=== PATIENT | male | born 1935 | race Two or more races ===

== ENCOUNTER → 2017-02-02 | Outpatient (CLI) | payer MEDICARE ==
[~2017-02-02] MED LIST: BUPIVACAINE MPF 0.25% 10 ML VIAL. ONE; CARB1CAP PO; IOHEXOL 180 MG/ML 10 ML VIAL. ONE; LEVO25TA55 PO; methylPREDNISolone ACETATE 80 MG/ML VIAL. ONE
--- NOTE | 2017-02-03 06:45 | PN ---
DATE: 02/02/2017 INITIAL CONSULTATION FOR PAIN CLINIC CHIEF COMPLAINT: Low back, right-sided pain. HISTORY OF PRESENT ILLNESS: This is a 81-year-old male who presents with history of pain for about 3 months now in the low back, right side, posterior hip radiating to the lateral posterior hip, posterior and anterior thigh, worse with standing and walking, playing golf as well, exacerbates the pain with twisting motions with his low back. The patient reports this is a constant pain that is radiating into the right leg, mainly in the right posterior hip and low back. The patient reports he has had sacroiliac joint injections in this region before with good results, most recently in October of this year, which helped quite a bit. The patient has been doing some physical therapy and some boxing classes as that are part of a rehabilitative program for his Parkinson's disease and some of the exercises they have done, he describes, has exacerbated the pain on the right side only. The patient reports no motor loss. No bowel or bladder incontinence or other complaints, but still significant pain. Better with some previous injections and better with massage or ice to the area of the right hip. The patient reports no loss of motor function. No bowel or bladder complaints. PAST MEDICAL HISTORY: Significant for hypertension, , and Parkinson's disease. PREVIOUS SURGERY: Include a deep brain stimulator in 10/2014, which helps significantly with his symptoms. The patient reports it does not awake him from sleep at night, does not affect the bowel or bladder control, but does affect his ability to walk with the pain. The patient has been taking Aleve as well as Tylenol, which both decrease the pain by about 50%. The patient's medication list is outlined and well documented on the patient's chart. ALLERGIES: The patient has no known drug allergies. PHYSICAL EXAMINATION: VITAL SIGNS: The patient's blood pressure is 158/71, pulse 64, respirations 18, temperature is 97.4 degrees Fahrenheit. Weight is 204 pounds. GENERAL: The patient is awake, alert, oriented, appropriate, very pleasant demeanor. The patient is accompanied by his spouse. HEENT: Shows normocephalic, atraumatic. The patient wears eye glasses. Extraocular movements are intact and symmetrical. Oral cavity, mucous membranes are moist and pink. Dentition is intact. NECK: Shows anterior throat supple. Neck shows full rotational motion of the cervical spine without difficulty. CHEST: Shows normal on inspection. Breath sounds clear to auscultation bilaterally. HEART: Shows S1 and S2 clear. No murmurs auscultated. ABDOMEN: Soft, nontender, nondistended. No palpable organomegaly is noted. No rebound or guarding demonstrated. BACK: Shows spine grossly in the midline. Normal appearing thoracic kyphosis and lumbar lordotic curvature with palpation over the right sacroiliac regions. No significant tenderness over the superior aspect of the joint as well as the posterior superior iliac spine on the right, but not on the left. The patient shows good rotation and motion of lumbar spine, both laterally as well as extension and flexion without difficulty. No tenderness over the spinous processes. LOWER EXTREMITIES: The patient's lower extremities show deep tendon reflexes 2+ in the patellar, 1+ tendo-calcaneus tendons are equal. Motor exam is strong with 5/5 dorsiflexion, extension, quadriceps and hamstring flexion. The patient does have positive Gaenslen's sign on the right side with external rotation and posterior displacement of the right hip, negative on the left. Juan Luis's maneuvers are grossly negative bilaterally. The patient is able to stand, walks without the use of any assistive devices with a slight shuffling gait, appears to favor the right lower extremity mildly. IMPRESSION: 1. This is a 81-year-old male with about a 3-month history of increasing low back pain, right posterior hip pain consistent with right sacroiliitis. 2. History of Parkinson's disease. 3. Hypertension. PLAN: Options were discussed with the patient and the patient's spouse conservative medical management, physical therapy, interventional techniques and he is doing physical therapy very actively at this time and walking significantly and consistently. We will proceed with a right sacroiliac joint injection with fluoroscopic guidance. Risks were discussed including but not limited to bleeding, infection, possibility of intravascular injection sequelae, spread of local anesthetic and numbness, side effects of steroid medications as well as exposure to fluoroscopy and poor results regarding pain control. The patient understands and wishes to proceed. The patient will return to clinic in approximately 2 weeks for followup or as necessary and would like to call for his next appointment if needed. The patient was counseled on activity levels as well as side effects to be aware of. DIAGNOSIS: Right sacroiliitis. PROCEDURE: Right sacroiliac joint injection with C-arm fluoroscopic guidance under sterile prep and drape using local anesthetic. MEDICATIONS INJECTED: A total of 80 mg Depo-Medrol plus 3 mL of 0.25% bupivacaine and 2 mL of Isovue for contrast after negative aspiration. CONDITION AT DISCHARGE: Stable. The patient tolerated procedure well, had no complications. MILAD MORGAN MD DR: CIRILO/john JOB#: [id number] / [id number]
== END | disposition home or self-care (01) ==
LOC: PNCL 12:34
PROVIDERS: ATTEND Anesthesiology
DX: M46.1 Sacroiliitis, not elsewhere classified (principal); I10 Essential (primary) hypertension; G20 Parkinson's disease
CPT/HCPCS: G0260; J1040; J3490; 27096

== ENCOUNTER 2017-02-23 11:35 | Emergency (ER) | payer MEDICARE ==
[~2017-02-23] VITALS: Ht 172.7 cm; Wt 90.7 kg
[~2017-02-23 11:35] MED LIST changes: -BUPIVACAINE MPF 0.25% 10 ML VIAL. ONE; -IOHEXOL 180 MG/ML 10 ML VIAL. ONE; -methylPREDNISolone ACETATE 80 MG/ML VIAL. ONE
[2017-02-23 11:51] VITALS: BP 152/74
--- NOTE | 2017-02-23 12:51 | RAD ---
CT head without contrast 02/23/2017 CT cervical spine without contrast Indication: Fall with trauma to the back of the head. Upper neck pain. Comparison: None available Technique: Multiple axial noncontrast CT images of the head were obtained from the skull base through the vertex. Multiple axial CT images of the cervical spine were obtained without intravenous contrast. Findings: Head: The ventricles, sulci and basal cisterns are within normal limits. Bilateral thalamic stimulator leads are present. Cortez-white matter differentiation is normal. There is no acute intracranial hemorrhage. There is no mass, mass effect or midline shift. Posterior fossa is within normal limits. Sellar and suprasellar cistern appear normal. Orbits are normal in appearance. Paranasal sinuses are well aerated. Mastoid air cells are well aerated. Scalp and calvaria are normal. Cervical spine: Alignment of the cervical spine is normal. The skull base is intact. Craniocervical junction is normal. The atlantoaxial articulation is normal. There is no acute fracture. There is mild multilevel facet arthropathy. Mild marginal osteophytosis noted ventrally at C5-C6, C6-C7, C7-T1 and T1-T2. No significant posterior disc osteophyte complex, neural foraminal stenosis or spinal canal stenosis. Paraspinal soft tissues are within normal limits. Thyroid gland is normal. Visualized portions of the lung apices are normal. Impression: 1. There is no acute intracranial hemorrhage. Bilateral thalamic stimulator leads are present. 2. There is no acute fracture or malalignment involving the cervical spine. PQRS Compliance Statement: One or more of the following individualized dose reduction techniques were utilized for this examination: 1. Automated exposure control 2. Adjustment of the mA and/or kV according to patient size 3. Use of iterative reconstruction technique
--- NOTE | 2017-02-23 12:55 | PHYS DOC ---
Past Medical History Past Medical History: Hypertension, Other Additional Past Medical Histor: PARKINSONS, DBS(DEEP BRAIN STIMULATOR) Past Surgical History: Appendectomy, Other Additional Past Surgical Histo: SINUS SX, DBS Alcohol Use: Occasionally Drug Use: None Adult General Chief Complaint Chief Complaint: HEAD INJURY/TRAUMA [facility] HPI Patient is a very pleasant 81 year old male presenting to the emergency department for posterior occipital and upper neck pain status post fall last Wednesday. He has a history of Parkinson's and has been having more difficulty with his gait and this was pronounced after falling and hitting his head last Wednesday. He was laying back in a recliner and fell backwards and hit his head posteriorly. No reported loss of consciousness but he has continued to have some pain. He has a brain stimulator and is going to follow at the [facility] in March for his increased difficulty. Patient denies any new weakness numbness tingling or other neurologic changes. He is in no obvious distress with normal vital signs. Review of Systems Review of Systems Constitutional: Denies fever or chills [] Cardiovascular: No additional information not addressed in HPI [] GI: Denies abdominal pain, nausea, vomiting, bloody stools or diarrhea [] Musculoskeletal: Denies back pain or joint pain [] Neurologic: + headache, No new focal weakness or sensory changes [] Allergies Allergies Allergies Coded Allergies Type Severity Reaction Last Updated Verified No Known Drug Allergies 02/23/17 No Physical Exam Physical Exam Constitutional: Well developed, well nourished, no acute distress, non-toxic appearance. [] HENT: Normocephalic, atraumatic, bilateral external ears normal, oropharynx moist, no oral exudates, nose normal. [] Eyes: PERRLA, EOMI, conjunctiva normal, no discharge. [] Neck: Normal range of motion, + upper C spine tenderness, supple, no stridor. [ ] Skin: Warm, dry, no erythema, no rash. [] Back: No tenderness, no CVA tenderness. [] Extremities: No tenderness, no cyanosis, no clubbing, ROM intact, no edema. [] Neurologic: Alert and oriented X 3, no focal deficits noted. [] Current Patient Data Vital Signs Vital Signs Date Time Temp Pulse Resp B/P (MAP) Pulse Ox O2 Delivery O2 Flow Rate FiO2 02/23/17 11:51 98.5 69 18 152/74 (100) 97 Room Air 98.5 EKG EKG [] Radiology/Procedures Radiology/Procedures CT head without contrast 02/23/2017 CT cervical spine without contrast Indication: Fall with trauma to the back of the head. Upper neck pain. Comparison: None available Technique: Multiple axial noncontrast CT images of the head were obtained from the skull base through the vertex. Multiple axial CT images of the cervical spine were obtained without intravenous contrast. Findings: Head: The ventricles, sulci and basal cisterns are within normal limits. Bilateral thalamic stimulator leads are present. Cortez-white matter differentiation is normal. There is no acute intracranial hemorrhage. There is no mass, mass effect or midline shift. Posterior fossa is within normal limits. Sellar and suprasellar cistern appear normal. Orbits are normal in appearance. Paranasal sinuses are well aerated. Mastoid air cells are well aerated. Scalp and calvaria are normal. Cervical spine: Alignment of the cervical spine is normal. The skull base is intact. Craniocervical junction is normal. The atlantoaxial articulation is normal. There is no acute fracture. There is mild multilevel facet arthropathy. Mild marginal osteophytosis noted ventrally at C5-C6, C6-C7, C7-T1 and T1-T2. No significant posterior disc osteophyte complex, neural foraminal stenosis or spinal canal stenosis. Paraspinal soft tissues are within normal limits. Thyroid gland is normal. Visualized portions of the lung apices are normal. Impression: 1. There is no acute intracranial hemorrhage. Bilateral thalamic stimulator leads are present. 2. There is no acute fracture or malalignment involving the cervical spine. PQRS Compliance Statement: One or more of the following individualized dose reduction techniques were utilized for this examination: 1. Automated exposure control 2. Adjustment of the mA and/or kV according to patient size 3. Use of iterative reconstruction technique DICTATED and SIGNED BY: VALENTE HARMON MD DATE: 02/23/17 4538 Course & Med Decision Making Course & Med Decision Making Patient with negative imaging which is her primary reason for coming to the emergency department. I did request a few basic screening labs and he does not want to wait for the results to come back. I took down his son's cell phone number and will call with the results when I get them back. Patient and family aware and agreeable with plan for discharge and verbalized understanding of the need for short-term follow-up and strict ER return precautions discussed including worsening pain weakness or other general concerns. Dragon Disclaimer Dragon Disclaimer This electronic medical record was generated, in whole or in part, using a voice recognition dictation system. Departure Departure Impression: Primary Impression: CHI (closed head injury) Additional Impression: Cervical strain, acute Disposition: 01 HOME, SELF-CARE Condition: GOOD Referrals: CECE GARCES MD (PCP) Patient Instructions: Cervical Strain and Sprain with Rehab-Sports[facility], Concussion and Brain Injury Problem Qualifiers Primary Impression: CHI (closed head injury) Encounter type: initial encounter Qualified Codes: S09.90XA - Unspecified injury of head, initial encounter Additional Impression: Cervical strain, acute Encounter type: initial encounter Qualified Codes: S16.1XXA - Strain of muscle, fascia and tendon at neck level, initial encounter JOHN ARAUJO DO Feb 23, 2017 12:55
[2017-02-23 13:19] LABS: BASO % 0 % (0-3); EOS % 0 % (0-3); HEMATOCRIT 47.8 % (39.0-53.0); LYMPH # 1.3 x10^3/uL (1.0-4.8); LYMPH % 11 % (24-48); MEAN CORPUSCULAR HEMOGLOBIN 33 pg (25-35); MEAN CORPUSCULAR HGB CONC 33 g/dL (31-37); MEAN CORPUSCULAR VOLUME 100 fL (79-100); MONO % 15 % (0-9); NEUT % 74 % (31-73); PLATELET COUNT 230 x10^3/uL (140-400); RED BLOOD COUNT 4.78 x10^6/uL (4.30-5.70); RED CELL DISTRIBUTION WIDTH 14.2 % (11.5-14.5); WHITE BLOOD COUNT 12.2 x10^3/uL (4.0-11.0)
[2017-02-23 13:31] LABS: CREATININE 1.1 mg/dL (0.7-1.3); GFR 64.6; POTASSIUM 3.9 mmol/L (3.5-5.1)
[2017-02-23 13:32] LABS: MAGNESIUM 2.2 mg/dL (1.8-2.4)
== END 2017-02-23 13:10 | disposition home or self-care (01) ==
LOC: ER 11:35
DX: S16.1XXA Strain of muscle, fascia and tendon at neck level, initial encounter (principal); S09.90XA Unspecified injury of head, initial encounter; I10 Essential (primary) hypertension; G20 Parkinson's disease; W18.09XA Striking against other object with subsequent fall, initial encounter; Y93.89 Activity, other specified; Y99.8 Other external cause status; Y92.89 Other specified places as the place of occurrence of the external cause
CPT/HCPCS: 36415; 70450; 72125; 80048; 83735; 85025; 99285-25

== ENCOUNTER → 2018-01-25 | Outpatient (CLI) | payer MEDICARE ==
[2018-01-25 12:02] LABS: ADD MAN DIFF? NO
[2018-01-25 12:07] LABS: BASO % 0 % (0-3); EOS # 0.1 x10^3/uL (0.0-0.7); EOS % 1 % (0-3); HEMATOCRIT 45.1 % (39.0-53.0); HEMOGLOBIN 15.7 g/dL (13.0-17.5); LYMPH # 2.1 x10^3/uL (1.0-4.8); LYMPH % 22 % (24-48); MEAN CORPUSCULAR HEMOGLOBIN 34 pg (25-35); MEAN CORPUSCULAR HGB CONC 35 g/dL (31-37); MEAN CORPUSCULAR VOLUME 98 fL (79-100); MONO # 1.1 x10^3/uL (0.0-1.1); MONO % 11 % (0-9); NEUT # 6.2 x10^3uL (1.8-7.7); NEUT % 65 % (31-73); PLATELET COUNT 251 x10^3/uL (140-400); WHITE BLOOD COUNT 9.5 x10^3/uL (4.0-11.0)
[2018-01-25 12:08] LABS: BILIRUBIN,URINE NEGATIVE (NEG); CLARITY,URINE CLEAR; COLOR,URINE YELLOW; GLUCOSE,URINE NEGATIVE (NEG); NITRITE,URINE NEGATIVE (NEG); PROTEIN,URINE NEGATIVE (NEG-TRACE); UROBILINOGEN,URINE 0.2 mg/dL (0.2 mg/dL)
[2018-01-25 12:25] LABS: ANION GAP 4 (6-14); BLOOD UREA NITROGEN 23 mg/dL (8-26); CALCIUM 9.2 mg/dL (8.5-10.1); CARBON DIOXIDE 33 mmol/L (21-32); CHLORIDE 98 mmol/L (98-107); CREATININE 1.2 mg/dL (0.7-1.3); GFR 58.3; GLUCOSE 110 mg/dL (70-99); SODIUM 135 mmol/L (136-145)
[2018-01-25 12:44] LABS: BACTERIA,URINE 0 /HPF (0-FEW); SQUAMOUS EPITHELIAL CELL,UR FEW /LPF
== END | disposition home or self-care (01) ==
LOC: LAB 11:46
DX: M47.892 Other spondylosis, cervical region (principal); R05 Cough
CPT/HCPCS: 36415; 71046; 72040; 80048; 81001; 85025; 86141; 87086

== ENCOUNTER 2018-12-07 08:09 | Inpatient (IN) | payer MEDICARE ==
[~2018-12-07] VITALS: Ht 172.7 cm; Wt 96.4 kg
[2018-12-07] MEDS ORDERED: IV NORMAL SALINE 1000ML BAG 1,000 ML IV SCH ×2 (08:20→15:15)
--- NOTE | 2018-12-07 08:27 | PHYS DOC ---
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 The patient's son, who is also a physician, states that the patient was having a fever and a cough last night, and did receive Tylenol yesterday evening. He has had increasing weakness today, and an inability to ambulate. He does complain of some "tightness" in his chest, I am unable to determine if this is true cardiac type chest pain, or t ightness of his breathing or difficulty breathing. He does admit to difficulty breathing. He has not had any past coronary artery disease. He has not had any nausea or vomiting and denies any focal weakness. He is generally weak. There are no alleviating or exacerbating factors to his condition otherwise. Review of Systems Review of Systems Constitutional: Ports fever last night, and generalized weakness.[] Eyes: Denies change in visual acuity [] HENT: Denies sore throat [] Respiratory: Ports cough and shortness of breath[] Cardiovascular: No additional information not addressed in HPI [] GI: Denies abdominal pain, nausea, vomiting, bloody stools or diarrhea [] : Denies dysuria [] Musculoskeletal: Denies back pain or joint pain [] Integument: Denies rash or skin lesions [] Neurologic: Denies headache, focal weakness or sensory changes. The patient has experienced generalized weakness. [] All other systems were reviewed and found to be within normal limits, except as documented in this note. Current Medications Current Medications Current Medications Medications (Trade) Dose Ordered Sig/Loyd Start Time Stop Time Status Last Admin Dose Admin Acetaminophen (Tylenol) 1,000 mg 1X ONCE 12/07/18 10:00 12/07/18 10:01 DC Ceftriaxone Sodium (Rocephin) 1 gm 1X ONCE 12/07/18 10:00 12/07/18 10:01 DC Info (CONTRAST GIVEN -- Rx MONITORING) 1 each PRN DAILY PRN 12/07/18 10:00 12/09/18 09:59 Iohexol (Omnipaque 350 Mg/ml) 90 ml 1X ONCE 12/07/18 10:00 12/07/18 10:01 DC Sodium Chloride 1,000 ml @ 125 mls/hr Q8H 12/07/18 08:20 12/07/18 16:19 12/07/18 08:20 125 MLS/HR Allergies Allergies Allergies Coded Allergies Type Severity Reaction Last Updated Verified No Known Drug Allergies 02/23/17 No Physical Exam Physical Exam PHYSICAL EXAM: CONSTITUTIONAL: Well developed, well nourished HEAD: normocephalic, atraumatic EENT: PERRL, EOMI. Conjunctivae normal color, sclerae non-icteric; moist mucous membranes. NECK: Supple, non-tender; no meningismus. LUNGS: There are globally diminished breath sounds in all lung membreno, without any rales, wheezes, or rhonchi. HEART: Regular rate and rhythm, no murmur CHEST: No deformity; non-tender ABDOMEN: The abdomen is soft, and non-tender, no masses or bruits. EXTREM: Normal ROM; no deformity, no calf tenderness. Normal pulses palpable in all extremities. There is trace bilateral pedal edema. SKIN: No rash; no diaphoresis NEURO: Alert; normal speech and cognition; CN's grossly intact; strength grossly intact without focal deficit, although the patient is significantly weak diff usely BACK: No CVA TTP. Current Patient Data Vital Signs Vital Signs Date Time Temp Pulse Resp B/P (MAP) Pulse Ox O2 Delivery O2 Flow Rate FiO2 12/07/18 08:17 44 35 98 12/07/18 08:09 102.1 109/50 (69) Nasal Cannula 3.0 102.1 Lab Values Laboratory Tests Test 12/07/18 08:35 White Blood Count 21.1 x10^3/uL (4.0-11.0) H Red Blood Count 4.41 x10^6/uL (4.30-5.70) Hemoglobin 14.6 g/dL (13.0-17.5) Hematocrit 43.6 % (39.0-53.0) Mean Corpuscular Volume 99 fL (79-100) Mean Corpuscular Hemoglobin 33 pg (25-35) Mean Corpuscular Hemoglobin Concent 34 g/dL (31-37) Red Cell Distribution Width 14.9 % (11.5-14.5) H Platelet Count 215 x10^3/uL (140-400) Neutrophils (%) (Auto) 77 % (31-73) H Lymphocytes (%) (Auto) 9 % (24-48) L Monocytes (%) (Auto) 14 % (0-9) H Eosinophils (%) (Auto) 0 % (0-3) Basophils (%) (Auto) 0 % (0-3) Neutrophils # (Auto) 16.2 x10^3uL (1.8-7.7) H Lymphocytes # (Auto) 1.8 x10^3/uL (1.0-4.8) Monocytes # (Auto) 3.0 x10^3/uL (0.0-1.1) H Eosinophils # (Auto) 0.0 x10^3/uL (0.0-0.7) Basophils # (Auto) 0.0 x10^3/uL (0.0-0.2) Platelet Estimate Pending Sodium Level 133 mmol/L (136-145) L Potassium Level 3.7 mmol/L (3.5-5.1) Chloride Level 97 mmol/L (98-107) L Carbon Dioxide Level 27 mmol/L (21-32) Anion Gap 9 (6-14) Blood Urea Nitrogen 21 mg/dL (8-26) Creatinine 1.3 mg/dL (0.7-1.3) Estimated GFR (Cockcroft-Gault) 53.0 BUN/Creatinine Ratio 16 (6-20) Glucose Level 108 mg/dL (70-99) H Lactic Acid Level 1.3 mmol/L (0.4-2.0) Calcium Level 9.2 mg/dL (8.5-10.1) Magnesium Level 2.1 mg/dL (1.8-2.4) Total Bilirubin 1.5 mg/dL (0.2-1.0) H Aspartate Amino Transferase (AST) 14 U/L (15-37) L Alanine Aminotransferase (ALT) 8 U/L (16-63) L Alkaline Phosphatase 39 U/L (46-116) L Troponin I Quantitative < 0.017 ng/mL (0.000-0.055) HE-Wlu-C-Type Natriuretic Peptide 985 pg/mL (0-449) H Total Protein 6.4 g/dL (6.4-8.2) Albumin 3.0 g/dL (3.4-5.0) L Albumin/Globulin Ratio 0.9 (1.0-1.7) L Thyroid Stimulating Hormone (TSH) 0.293 uIU/mL (0.358-3.74) L Free Thyroxine 1.24 ng/dL (0.76-1.46) Laboratory Tests 12/07/18 08:35 Laboratory Tests 12/07/18 08:35 EKG EKG Normal sinus rhythm at a rate of 71 bpm with frequent PVCs, leftward axis, right bundle-branch block, there are no acute ischemic ST/T changes. Radiology/Procedures Radiology/Procedures [PROCEDURE: PORTABLE CHEST 1V PORTABLE CHEST 1V Clinical indications: Fever and cough and chest pain and shortness of air. COMPARISON: March 28, 2018. Findings: No acute lung infiltrate or pleural effusion or pulmonary edema or lung mass or pneumothorax is seen. The heart size, pulmonary vasculature, mediastinum and both devonte are stable. Old healed bilateral cage fractures are evident. Impression: No acute radiographic abnormality is seen.] Course & Med Decision Making Course & Med Decision Making Pertinent Labs and Imaging studies reviewed. (See chart for details) []10:00 AM: The patient's condition remains stable. I discussed the case with Dr. Guzman, who will admit the patient for further evaluation and treatment. His urinalysis is currently pending. The patient's son, and I, discussed the uncertain etiology of his shortness of breath, and a CT pulmonary angiogram will be obtained. This might be useful for identifying occult infiltrates on chest x-ray as well. A gram of Rocephin will be administered. Dragon Disclaimer Dragon Disclaimer This electronic medical record was generated, in whole or in part, using a voice recognition dictation system. Departure Departure Impression: Primary Impression: Fever Additional Impressions: Weakness Dyspnea Parkinsons disease Disposition: ADMITTED INPATIENT Admitting Physician: Sheridan Guzman Condition: STABLE Referrals: CECE GARCES MD (PCP) Problem Qualifiers JOHN COLBY MD December 07, 2018 08:27
--- NOTE | 2018-12-07 09:02 | RAD ---
PORTABLE CHEST 1V Clinical indications: Fever and cough and chest pain and shortness of air. COMPARISON: March 28, 2018. Findings: No acute lung infiltrate or pleural effusion or pulmonary edema or lung mass or pneumothorax is seen. The heart size, pulmonary vasculature, mediastinum and both devonte are stable. Old healed bilateral cage fractures are evident. Impression: No acute radiographic abnormality is seen. Electronically signed by: Neto Brush MD (12/07/2018 8:59 AM) [id number]
[2018-12-07] MEDS ORDERED: CARB1CAP3 PO (09:16)
[2018-12-07] MEDS ORDERED: HYDR10TA PO (09:16)
[2018-12-07] MEDS ORDERED: VALS1TAB25 PO (09:16)
[2018-12-07] MEDS ORDERED: LEVO88TA2 PO (09:17)
[2018-12-07] MEDS ORDERED: RANI150C PO (09:18)
[2018-12-07] MEDS ORDERED: ACET-704 PO (09:18)
[2018-12-07] MEDS ORDERED: MODA100T2 PO (09:18)
[2018-12-07 09:19] LABS: BASO % 0 % (0-3); EOS % 0 % (0-3); HEMATOCRIT 43.6 % (39.0-53.0); HEMOGLOBIN 14.6 g/dL (13.0-17.5); LYMPH # 1.8 x10^3/uL (1.0-4.8); LYMPH % 9 % (24-48); MEAN CORPUSCULAR HEMOGLOBIN 33 pg (25-35); MEAN CORPUSCULAR HGB CONC 34 g/dL (31-37); MEAN CORPUSCULAR VOLUME 99 fL (79-100); MONO % 14 % (0-9); NEUT # 16.2 x10^3uL (1.8-7.7); NEUT % 77 % (31-73); PLATELET COUNT 215 x10^3/uL (140-400); RED BLOOD COUNT 4.41 x10^6/uL (4.30-5.70); RED CELL DISTRIBUTION WIDTH 14.9 % (11.5-14.5); WHITE BLOOD COUNT 21.1 x10^3/uL (4.0-11.0)
[2018-12-07 09:20] LABS: CALCIUM 9.2 mg/dL (8.5-10.1); CREATININE 1.3 mg/dL (0.7-1.3); POTASSIUM 3.7 mmol/L (3.5-5.1)
[2018-12-07] MEDS ORDERED: RIMA100T PO (09:20)
[2018-12-07] MEDS ORDERED: VALA1000 PO (09:20)
[2018-12-07] MEDS ORDERED: AMIT10TA PO (09:20)
[2018-12-07 09:26] LABS: ALBUMIN/GLOBULIN RATIO 0.9 (1.0-1.7); TOTAL BILIRUBIN 1.5 mg/dL (0.2-1.0); TOTAL PROTEIN 6.4 g/dL (6.4-8.2)
[2018-12-07 09:27] LABS: MAGNESIUM 2.1 mg/dL (1.8-2.4); PROTHROMBIN TIME PATIENT 15.2 SEC (11.7-14.0)
[2018-12-07 09:30] LABS: FREE T4 1.24 ng/dL (0.76-1.46); THYROID STIM HORMONE (TSH) 0.293 uIU/mL (0.358-3.74)
[2018-12-07] MEDS ORDERED: IOHEXOL 350 MG/ML 100 ML VIAL. IV ONE (10:00)
[2018-12-07] MEDS ORDERED: ACETAMINOPHEN 500 MG TABLET PO ONE (10:00)
[2018-12-07] MEDS ORDERED: cefTRIAXone IV Push 1 GM VIAL. IVP ONE (10:00)
[2018-12-07] MEDS ORDERED: CONTRAST GIVEN. MC PRN (10:00)
[2018-12-07 10:22] LABS: BILIRUBIN,URINE SMALL (NEG); CLARITY,URINE CLEAR; COLOR,URINE AMBER; NITRITE,URINE NEGATIVE (NEG); PH,URINE 7.5; PROTEIN,URINE 30 mg/dL (NEG-TRACE)
[2018-12-07 10:39] LABS: BACTERIA,URINE 0 /HPF (0-FEW)
[2018-12-07 11:06] LABS: % BANDS 4 % (0-9); % LYMPHS 13 % (24-48); % MONOS 11 % (0-10); % SEGS 72 % (35-66); PLT ESTIMATE ADEQUATE (ADEQUATE)
--- NOTE | 2018-12-07 11:17 | RAD ---
CTA of the chest with contrast, 12/07/2018: HISTORY: Shortness of breath Multidetector CT imaging was performed following an IV bolus injection of iodinated contrast material. Multiplanar reconstructions were produced including coronal and sagittal MIP images. The central pulmonary arteries are well opacified and no filling defects are seen to suggest pulmonary emboli. There is mild calcific plaquing involving the thoracic aorta without evidence of aneurysm or dissection. A few scattered coronary artery calcifications are noted. The heart is enlarged. No mediastinal adenopathy is seen. There are mild streaky pulmonary opacities in the posterior aspects of both lungs suggesting atelectasis and/or scarring. The nondependent aspects of both lungs are clear. No pleural fluid is present. Several well-defined low density lesions in the liver are compatible with cysts. No gallbladder abnormality is seen. There is mild streaky increased density in the peripancreatic fat adjacent to the pancreatic tail extending into the left anterior pararenal space, incompletely visualized on these chest scans. There also appears to be a small amount of fluid extending superiorly between the posterior margin of the spleen in the left hemidiaphragm. The appearance raises the possibility of focal pancreatitis. A small soft tissue nodule along the inferior margin of the spleen is compatible with an accessory spleen. Moderate hypertrophic degenerative changes are present in the spine. Multiple old healed rib fractures are present on the left. An electronic device is present in the subcutaneous soft tissues of the left upper chest wall with leads extending into the left neck. IMPRESSION: 1. No CT evidence of central pulmonary emboli. 2. Mild dependent atelectasis and/or scarring in both lungs. 3. Minimal coronary artery disease. 4. Left upper quadrant abdominal densities in the region of the pancreatic tail, incompletely visualized on these chest images. The appearance suggests inflammation which may originate from the pancreatic tail, although a lower abdominal inflammatory process such as diverticulitis with superior extension could also produce this appearance. CT scanning of the abdomen and pelvis is suggested for further evaluation, if clinically indicated. PQRS Compliance Statement: One or more of the following individualized dose reduction techniques were utilized for this examination: 1. Automated exposure control 2. Adjustment of the mA and/or kV according to patient size 3. Use of iterative reconstruction technique Electronically signed by: Dhaval Pressley MD (12/07/2018 11:14 AM) [facility]
--- NOTE | 2018-12-07 11:54 | PDOC ---
Infectious Disease Note Vital Signs: Vital Signs Vital Signs Date Time Temp Pulse Resp B/P (MAP) Pulse Ox O2 Delivery O2 Flow Rate FiO2 12/07/18 10:11 72 33 100 12/07/18 08:09 102.1 109/50 (69) Nasal Cannula 3.0 102.1 Medications: Inpatient Meds: Current Medications Medications (Trade) Dose Ordered Sig/Loyd Start Time Stop Time Status Last Admin Dose Admin Acetaminophen (Tylenol) 1,000 mg 1X ONCE 12/07/18 10:00 12/07/18 10:01 DC 12/07/18 10:11 1,000 MG Ceftriaxone Sodium (Rocephin) 1 gm 1X ONCE 12/07/18 10:00 12/07/18 10:01 DC 12/07/18 10:11 1 GM Doxycycline Hyclate (Vibra-Tab) 100 mg BID 12/07/18 21:00 UNV Info (CONTRAST GIVEN -- Rx MONITORING) 1 each PRN DAILY PRN 12/07/18 10:00 12/09/18 09:59 Iohexol (Omnipaque 350 Mg/ml) 90 ml 1X ONCE 12/07/18 10:00 12/07/18 10:01 DC 12/07/18 10:38 90 ML Piperacillin Sod/ Tazobactam Sod 3.375 gm/Sodium Chloride 50 ml @ 100 mls/hr Q6HRS 12/07/18 12:00 UNV Sodium Chloride 1,000 ml @ 125 mls/hr Q8H 12/07/18 08:20 12/07/18 16:19 12/07/18 08:20 125 MLS/HR Labs: Lab Laboratory Tests Test 12/07/18 08:35 12/07/18 09:58 White Blood Count 21.1 x10^3/uL (4.0-11.0) Red Blood Count 4.41 x10^6/uL (4.30-5.70) Hemoglobin 14.6 g/dL (13.0-17.5) Hematocrit 43.6 % (39.0-53.0) Mean Corpuscular Volume 99 fL (79-100) Mean Corpuscular Hemoglobin 33 pg (25-35) Mean Corpuscular Hemoglobin Concent 34 g/dL (31-37) Red Cell Distribution Width 14.9 % (11.5-14.5) Platelet Count 215 x10^3/uL (140-400) Neutrophils (%) (Auto) 77 % (31-73) Lymphocytes (%) (Auto) 9 % (24-48) Monocytes (%) (Auto) 14 % (0-9) Eosinophils (%) (Auto) 0 % (0-3) Basophils (%) (Auto) 0 % (0-3) Neutrophils # (Auto) 16.2 x10^3uL (1.8-7.7) Lymphocytes # (Auto) 1.8 x10^3/uL (1.0-4.8) Monocytes # (Auto) 3.0 x10^3/uL (0.0-1.1) Eosinophils # (Auto) 0.0 x10^3/uL (0.0-0.7) Basophils # (Auto) 0.0 x10^3/uL (0.0-0.2) Segmented Neutrophils % 72 % (35-66) Band Neutrophils % 4 % (0-9) Lymphocytes % 13 % (24-48) Monocytes % 11 % (0-10) Platelet Estimate Adequate (ADEQUATE) Prothrombin Time 15.2 SEC (11.7-14.0) Prothromb Time International Ratio 1.2 (0.8-1.1) Sodium Level 133 mmol/L (136-145) Potassium Level 3.7 mmol/L (3.5-5.1) Chloride Level 97 mmol/L (98-107) Carbon Dioxide Level 27 mmol/L (21-32) Anion Gap 9 (6-14) Blood Urea Nitrogen 21 mg/dL (8-26) Creatinine 1.3 mg/dL (0.7-1.3) Estimated GFR (Cockcroft-Gault) 53.0 BUN/Creatinine Ratio 16 (6-20) Glucose Level 108 mg/dL (70-99) Lactic Acid Level 1.3 mmol/L (0.4-2.0) Calcium Level 9.2 mg/dL (8.5-10.1) Magnesium Level 2.1 mg/dL (1.8-2.4) Total Bilirubin 1.5 mg/dL (0.2-1.0) Aspartate Amino Transf (AST/SGOT) 14 U/L (15-37) Alanine Aminotransferase (ALT/SGPT) 8 U/L (16-63) Alkaline Phosphatase 39 U/L (46-116) Troponin I Quantitative < 0.017 ng/mL (0.000-0.055) JW-Jwi-Z-Type Natriuretic Peptide 985 pg/mL (0-449) Total Protein 6.4 g/dL (6.4-8.2) Albumin 3.0 g/dL (3.4-5.0) Albumin/Globulin Ratio 0.9 (1.0-1.7) Thyroid Stimulating Hormone (TSH) 0.293 uIU/mL (0.358-3.74) Free Thyroxine 1.24 ng/dL (0.76-1.46) Urine Collection Type Unknown Urine Color Mindi Urine Clarity Clear Urine pH 7.5 Urine Specific [place] 1.025 Urine Protein 30 mg/dL (NEG-TRACE) Urine Glucose (UA) Negative mg/dL (NEG) Urine Ketones (Stick) Trace mg/dL (NEG) Urine Blood Moderate (NEG) Urine Nitrite Negative (NEG) Urine Bilirubin Small (NEG) Urine Urobilinogen Dipstick 1.0 mg/dL (0.2 mg/dL) Urine Leukocyte Esterase Trace (NEG) Urine RBC 11-20 /HPF (0-2) Urine WBC 1-4 /HPF (0-4) Urine Bacteria 0 /HPF (0-FEW) Urine Mucus Mod /LPF Objective: Assessment: Pt seen and examined IMP Fever Leucocytosis Cough, SOB,Chestpain , CTA negative Abn CTA pancreatic changes ,possible diverticulitis H/O sinus surgeries Generalized weakness immunosuppression on cortef Parkinson's disease Plan: Plan of Care Zosyn, doxycycline One time dose of IV Vanc CT A/P CT head and maxillofacial Influenza screen urine legionella and strep pneumo for completeness sake F/U C/S D/W Dr New and Dr Sukumar Piña Thank you [phone] ALLIE GLASER MD December 07, 2018 11:54
[2018-12-07 11:55] VITALS: BP 110/61
[2018-12-07 11:57] LABS: DIRECT BILIRUBIN 0.3 mg/dL (0.0-0.2); TOTAL BILIRUBIN 1.5 mg/dL (0.2-1.0); TOTAL PROTEIN 6.5 g/dL (6.4-8.2)
[2018-12-07] MEDS: DOXYCYCLINE HYCLATE 100 MG TABLET PO SCH ×2 (12:00→20:55)
[2018-12-07] MEDS: ENOXAPARIN 40 MG/0.4 ML SYRINGE. SQ SCH (12:00)
[2018-12-07] MEDS: PIPERACILLIN/TAZOBACTAM 3.375 GM in IV NORMAL SALINE 50ML 50 ML IV SCH ×2 (12:00→17:05)
--- NOTE | 2018-12-07 12:06 | CONS ---
DATE OF CONSULTATION: ATTENDING PHYSICIAN: Dr. Guzman. REASON FOR CONSULTATION: Fever, sepsis. 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 He has history of pituitary tumor. He will be on chronic steroids for last 50 years. The patient was brought into the hospital with fever. He also had a cough. The patient's said he had altered mental status. He was confused, very lethargic. He has a history of chronic alcoholism. He was complaining of some tightness in the chest and shortness of breath. There is no nausea, vomiting, no abdominal discomfort. No focal weakness. The patient underwent imaging study, and I have reviewed the patient's CT chest. There is no evidence of pulmonary embolism. There was mild dependent atelectasis. There was some left pleural thickening. The patient had left upper quadrant abdominal density in the region of pancreatic tail, suggesting inflammation. Positive diverticulitis was also a consideration. The patient currently does not appear to be in any obvious respiratory distress. His fever was 102. Infectious Disease has also been consulted and broad-spectrum antibiotics will be initiated. PAST MEDICAL HISTORY: History of hypertension, history of Parkinson's, history of recurrent sinus infections in the past, history of pituitary tumor. History of immunocompromised status, being on chronic steroids for 50 years. History of alcoholism. History of very minimal tobacco use. PAST SURGICAL HISTORY: Appendectomy and sinus surgeries x 3. Stimulator placement. ALLERGIES: None. MEDICATIONS: Reviewed as listed in the MRAD. REVIEW OF SYSTEMS: A 10-point system obtained. Pertinent positives discussed from the patient's who answers most of the questions. HOME MEDICATIONS: Also reviewed, including hydrocortisone 10 mg daily. SOCIAL HISTORY: Has long history of alcohol use and minimal tobacco history, quit in 1978. PHYSICAL EXAMINATION: GENERAL: He is confused, restless. No obvious respiratory distress. VITAL SIGNS: T-max of 102. Blood pressure 109/50, pulse ox 97% on 3 liters. NECK: Supple. LUNGS: With diminished breath sounds. CARDIOVASCULAR: Regular rate and rhythm. ABDOMEN: Soft, obese, nontender. EXTREMITIES: With no pitting edema. LABORATORY DATA: Reviewed. White cell count 21.1, hemoglobin is 14.6, and platelets are 215. BUN is 21, creatinine 1.3. Albumin 3.0. IMPRESSION: 1. Dyspnea with acute hypoxic respiratory failure secondary to sepsis. 2. Sepsis. The source is not so obvious. There is no definite consolidation seen on the chest CT. The possibility of pancreatitis or diverticulitis cannot be ruled out, although clinically he has benign abdominal exam. The patient has a history of recurrent sinus infection and that could be another potential source. We also need to rule out for any B2B SALES REPRESENTATIVE infection. 3. Immunocompromised status. Now comes in with sepsis and high grade fever. 4. Long history of alcoholism. Need to rule out alcoholic pancreatitis. 5. Mildly elevated bilirubin. RECOMMENDATIONS: 1. Discussed with the patient's in detail. Discussed with Infectious Disease, Dr. Pena. 2. Broad-spectrum antibiotics. 3. Follow all cultures. 4. Nasal swab for influenza. 5. CT head and sinuses. 6. CT abdomen and pelvis. 7. I will obtain amylase and lipase. 8. No evidence of pulmonary embolism and no focus of infection in the lungs by CT chest. 9. Further recommendations to follow. IFRAH MCFARLANE MD DR: SANDRINE/john JOB#: [id number] / [id number]
[2018-12-07] MEDS ORDERED: VANCOMYCIN 1.25 GM in IV NORMAL SALINE 250ML 250 ML IV ONE (12:30)
[2018-12-07 13:09] LABS: CREATINE KINASE 64 U/L (39-308); LACTATE DEHYDROGENASE 203 U/L (85-227)
--- NOTE | 2018-12-07 13:23 | EKG ---
[facility] [address] [place] [address] Test Date: 2018-12-07 Test Time: 08:48:08 Pat Name: MALOU GARCES Department: Room: [facility] Gender: M Customer Service Officer: : 1935 Requested By: JOHN COLBY Order Number: [id number] Reading MD: Robert Wilburn MD Measurements Intervals [place] Rate: 71 P: -34 NE: 202 QRS: 4 QRSD: 134 T: -13 QT: 402 QTc: 442 Interpretive Statements SINUS RHYTHM VENTRICULAR PREMATURE COMPLEX(ES) Electronically Signed On 12-12-2018 12:46:22 CDT by Robert Wilburn MD
--- NOTE | 2018-12-07 14:03 | RAD ---
CT of the abdomen and pelvis without contrast, 12/07/2018: HISTORY: Fever, pancreatic abnormality Multidetector CT imaging was performed. There is contrast material in the urinary tract from the patient's recent CT chest exam. No additional IV contrast or oral contrast was administered for this exam. Multiple well-defined low density lesions in the liver are compatible with cysts. The gallbladder is unremarkable. The pancreatic body and head show no abnormality. There is streaky increased density in the peripancreatic fat at the level of the pancreatic tail extending into the left anterior pararenal space, most compatible with inflammation. No definite underlying pancreatic mass is seen. There is a small rounded nodule at the adjacent splenic hilum most compatible with an accessory spleen. These left upper quadrant inflammatory changes also lie adjacent to the proximal descending colon where several small diverticula are noted. No definite paracolonic inflammatory mass or extraluminal gas collections are seen. The bowel loops are not dilated. There is mild aortoiliac calcific plaquing without evidence of aneurysm. No abdominal or pelvic adenopathy is seen. The prostate gland is markedly enlarged measuring 7 cm in width. It contains calcifications. There is mild diffuse thickening of the bladder kumar. Moderate multilevel degenerative changes are present in the spine. IMPRESSION: 1. Left upper quadrant inflammatory changes at the level of the pancreatic tail and proximal descending colon extending into the left anterior pararenal space. Several underlying colonic diverticula are evident. Diagnostic considerations include acute diverticulitis versus focal pancreatitis. 2. Nonspecific prostatic enlargement. 3. Mild diffuse bladder wall thickening probably reflects chronic bladder outlet obstruction. Cystitis is a less likely possibility. Clinical correlation is suggested. 4. Hepatic cysts. PQRS Compliance Statement: One or more of the following individualized dose reduction techniques were utilized for this examination: 1. Automated exposure control 2. Adjustment of the mA and/or kV according to patient size 3. Use of iterative reconstruction technique Electronically signed by: Dhaval Pressley MD (12/07/2018 2:00 PM) [facility]
[2018-12-07] MEDS: DAPTOmycin (GENERIC) IVPB 550 MG in IV NORMAL SALINE 50ML 50 ML IV SCH (14:18)
[2018-12-07] MEDS ORDERED: ENOXAPARIN 40 MG/0.4 ML SYRINGE. SQ SCH (14:45)
--- NOTE | 2018-12-07 14:47 | RAD ---
CT of the paranasal sinuses without contrast, 12/07/2018: HISTORY: Fever Noncontrast scans were obtained. There are bony defects in the medial kumar of both maxillary sinuses as well as at the expected level of the ostiomeatal complexes bilaterally, which are presumably postsurgical. There is moderate mucosal thickening along the floor of the right maxillary sinus. There is slight mucosal thickening along the posterior wall of the left maxillary sinus. There is mild mucosal thickening in the left frontal and both ethmoid sinuses. Minimal mucosal thickening is present in both sphenoid sinuses. No significant free fluid is evident in the sinuses. The orbital contents are unremarkable. Incidental note is made of bilateral intracranial electrodes extending into the basal ganglia regions. IMPRESSION: 1. Evidence of previous sinus surgery. 2. Mild mucosal thickening in the paranasal sinuses. PQRS Compliance Statement: One or more of the following individualized dose reduction techniques were utilized for this examination: 1. Automated exposure control 2. Adjustment of the mA and/or kV according to patient size 3. Use of iterative reconstruction technique Electronically signed by: Dhaval Pressley MD (12/07/2018 2:44 PM) [facility]
[2018-12-07] MEDS ORDERED: IOHEXOL 350 MG/ML 100 ML VIAL. ONE (14:54)
[2018-12-07 15:00] VITALS: BP 110/56
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
[2018-12-07] MEDS: AMINO AC 3%/ELECTROLYTE/GLYCER 1,000 ML IV SCH (15:36)
[2018-12-07] MEDS: valACYclovir 500 MG TABLET. PO SCH ×2 (15:36→20:55)
--- NOTE | 2018-12-07 16:23 | PDOC2 ---
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 Family present. Noted w/ leukocytosis and mildly elevated lipase (496). Imaging showed LUQ inflammatory changes at the level of the pancreatic tail and proximal descending colon extending into the left anterior pararenal space w/ several underlying colonic diverticula evident. Also noted nonspecific prostatic enlargement w/ mild diffuse bladder wall thickening (more likely chronic outlet obstruction than cystitis) and hepatic cysts. He denies n/v, abd pain, diarrhea, constipation, and bleeding. Has been eating and drinking normally. Says "I can't believe all these things are wrong with me because I feel fine!" No chronic GI issues. Reports 5 previous colonoscopies as normal. No GB, liver, or pancreas history. H/o Parkinson's w/ DBS (goes to [place]) and chronic immunosuppression. PMH: PMH: HTN, TONYA, Parkinson's, vertigo, diverticulosis, BPH/LUTS, hypothyroidism, pituitary adenoma DBS, appendectomy, sinus surgery FH: Family History: Hyperlipidemia, Hypertension Social History: Smoke: Quit (cigars) ALCOHOL: social (1 [place] every day) Drugs: None ROS: GEN: Denies fevers, chills, sweats HEENT: Denies blurred vision, sore throat CV: Denies chest pain RESP: Denies shortness of air, cough GI: Per HPI : Denies hematuria, dysuria ENDO: Denies weight changes NEURO: Denies confusion, dizziness MSK: Denies weakness, joint pain/swelling SKIN: Denies jaundice, pruritus Vitals: Vitals: Vital Signs Date Time Temp Pulse Resp B/P (MAP) Pulse Ox O2 Delivery O2 Flow Rate FiO2 12/07/18 15:00 98.2 64 19 110/56 (74) 100 Nasal Cannula 3.0 98.2 Labs: Labs: Laboratory Tests Test 12/07/18 08:35 12/07/18 09:58 White Blood Count 21.1 x10^3/uL (4.0-11.0) Red Blood Count 4.41 x10^6/uL (4.30-5.70) Hemoglobin 14.6 g/dL (13.0-17.5) Hematocrit 43.6 % (39.0-53.0) Mean Corpuscular Volume 99 fL (79-100) Mean Corpuscular Hemoglobin 33 pg (25-35) Mean Corpuscular Hemoglobin Concent 34 g/dL (31-37) Red Cell Distribution Width 14.9 % (11.5-14.5) Platelet Count 215 x10^3/uL (140-400) Neutrophils (%) (Auto) 77 % (31-73) Lymphocytes (%) (Auto) 9 % (24-48) Monocytes (%) (Auto) 14 % (0-9) Eosinophils (%) (Auto) 0 % (0-3) Basophils (%) (Auto) 0 % (0-3) Neutrophils # (Auto) 16.2 x10^3uL (1.8-7.7) Lymphocytes # (Auto) 1.8 x10^3/uL (1.0-4.8) Monocytes # (Auto) 3.0 x10^3/uL (0.0-1.1) Eosinophils # (Auto) 0.0 x10^3/uL (0.0-0.7) Basophils # (Auto) 0.0 x10^3/uL (0.0-0.2) Segmented Neutrophils % 72 % (35-66) Band Neutrophils % 4 % (0-9) Lymphocytes % 13 % (24-48) Monocytes % 11 % (0-10) Platelet Estimate Adequate (ADEQUATE) Prothrombin Time 15.2 SEC (11.7-14.0) Prothromb Time International Ratio 1.2 (0.8-1.1) Sodium Level 133 mmol/L (136-145) Potassium Level 3.7 mmol/L (3.5-5.1) Chloride Level 97 mmol/L (98-107) Carbon Dioxide Level 27 mmol/L (21-32) Anion Gap 9 (6-14) Blood Urea Nitrogen 21 mg/dL (8-26) Creatinine 1.3 mg/dL (0.7-1.3) Estimated GFR (Cockcroft-Gault) 53.0 BUN/Creatinine Ratio 16 (6-20) Glucose Level 108 mg/dL (70-99) Lactic Acid Level 1.3 mmol/L (0.4-2.0) Calcium Level 9.2 mg/dL (8.5-10.1) Magnesium Level 2.1 mg/dL (1.8-2.4) Total Bilirubin 1.5 mg/dL (0.2-1.0) Direct Bilirubin 0.3 mg/dL (0.0-0.2) Aspartate Amino Transf (AST/SGOT) 17 U/L (15-37) Alanine Aminotransferase (ALT/SGPT) 12 U/L (16-63) Alkaline Phosphatase 38 U/L (46-116) Lactate Dehydrogenase 203 U/L (85-227) Creatine Kinase 64 U/L (39-308) Troponin I Quantitative < 0.017 ng/mL (0.000-0.055) RP-Ggy-D-Type Natriuretic Peptide 985 pg/mL (0-449) Total Protein 6.5 g/dL (6.4-8.2) Albumin 3.0 g/dL (3.4-5.0) Albumin/Globulin Ratio 0.9 (1.0-1.7) Lipase 496 U/L (73-393) Thyroid Stimulating Hormone (TSH) 0.293 uIU/mL (0.358-3.74) Free Thyroxine 1.24 ng/dL (0.76-1.46) Urine Collection Type Unknown Urine Color Mindi Urine Clarity Clear Urine pH 7.5 Urine Specific [place] 1.025 Urine Protein 30 mg/dL (NEG-TRACE) Urine Glucose (UA) Negative mg/dL (NEG) Urine Ketones (Stick) Trace mg/dL (NEG) Urine Blood Moderate (NEG) Urine Nitrite Negative (NEG) Urine Bilirubin Small (NEG) Urine Urobilinogen Dipstick 1.0 mg/dL (0.2 mg/dL) Urine Leukocyte Esterase Trace (NEG) Urine RBC 11-20 /HPF (0-2) Urine WBC 1-4 /HPF (0-4) Urine Bacteria 0 /HPF (0-FEW) Urine Mucus Mod /LPF Allergies: Coded Allergies: No Known Drug Allergies (Unverified , 02/23/17) Medications: Current Medications Medications (Trade) Dose Ordered Sig/Loyd Route PRN Reason Start Time Stop Time Status Last Admin Dose Admin Sodium Chloride 1,000 ml @ 125 mls/hr Q8H IV 12/07/18 08:20 12/07/18 16:19 12/07/18 08:20 Ceftriaxone Sodium (Rocephin) 1 gm 1X ONCE IVP 12/07/18 10:00 12/07/18 10:01 DC 12/07/18 10:11 Iohexol (Omnipaque 350 Mg/ml) 90 ml 1X ONCE IV 12/07/18 10:00 12/07/18 10:01 DC 12/07/18 10:38 Acetaminophen (Tylenol) 1,000 mg 1X ONCE PO 12/07/18 10:00 12/07/18 10:01 DC 12/07/18 10:11 Piperacillin Sod/ Tazobactam Sod 3.375 gm/Sodium Chloride 50 ml @ 100 mls/hr Q6HRS IV 12/07/18 12:00 12/07/18 12:00 Doxycycline Hyclate (Vibra-Tab) 100 mg BID PO 12/07/18 12:00 12/07/18 12:00 Daptomycin 550 mg/ Sodium Chloride 50 ml @ 100 mls/hr Q24H IV 12/07/18 13:00 12/07/18 14:18 Amino Acids/ Glycerin/ Electrolytes 1,000 ml @ 80 mls/hr [id number] IV 12/07/18 14:45 12/07/18 15:36 Valacyclovir HCl (Valtrex) 1,000 mg TID PO 12/07/18 15:00 12/07/18 15:36 Sodium Chloride 1,000 ml @ 1,000 mls/hr Q1H IV 12/07/18 15:15 12/07/18 16:14 12/07/18 15:15 Imaging: Imaging: CXR Impression: No acute radiographic abnormality is seen. Chest CTA IMPRESSION: 1. No CT evidence of central pulmonary emboli. 2. Mild dependent atelectasis and/or scarring in both lungs. 3. Minimal coronary artery disease. 4. Left upper quadrant abdominal densities in the region of the pancreatic tail, incompletely visualized on these chest images. The appearance suggests inflammation which may originate from the pancreatic tail, although a lower abdominal inflammatory process such as diverticulitis with superior extension could also produce this appearance. CT scanning of the abdomen and pelvis is suggested for further evaluation, if clinically indicated. Maxillofacial CT IMPRESSION: 1. Evidence of previous sinus surgery. 2. Mild mucosal thickening in the paranasal sinuses. CT A/P IMPRESSION: 1. Left upper quadrant inflammatory changes at the level of the pancreatic tail and proximal descending colon extending into the left anterior pararenal space. Several underlying colonic diverticula are evident. Diagnostic considerations include acute diverticulitis versus focal pancreatitis. 2. Nonspecific prostatic enlargement. 3. Mild diffuse bladder wall thickening probably reflects chronic bladder outlet obstruction. Cystitis is a less likely possibility. Clinical correlation is suggested. 4. Hepatic cysts. PE: GEN: NAD HEENT: Atraumatic, PERRL LUNGS: NC 3L, clear anteriorly HEART: RRR ABD: NABS, S/ND/NT EXTREMITY: No edema SKIN: No rashes, no jaundice NEURO/PSYCH: A & O 3 A/P: A/P: Weakness, fever Leukocytosis Mildly elevated lipase and bilirubin Abnormal CT - LUQ inflammatory changes at the level of the pancreatic tail and proximal descending colon extending into the left anterior pararenal space (pancreatitis vs diverticulitis) CRC screen - has had 5 previous colonoscopies Diverticulosis Parkinson's, chronic immunosuppression -- He denies typical pancreatitis and/or diverticulitis symptoms. Is NPO on PPN w/ atbx per ID. Reviewed w/ Dr. Trevino - can check abd US. AKI PETERS December 07, 2018 16:23
[2018-12-07] MEDS: HYDROCORTISONE 10 MG TABLET PO SCH (17:20)
[2018-12-07 18:10] VITALS: BP 112/48
[2018-12-07] MEDS: FAMOTIDINE 20 MG TABLET. PO SCH (20:55)
[2018-12-07] MEDS: CARBIDOPA/LEVODOPA CR 25/100MG TABLET.SA. PO SCH (20:55)
[2018-12-07] MEDS: TAMSULOSIN 0.4 MG CAP.ER.24H. PO SCH (20:55)
[2018-12-07] MEDS: AMANTADINE HCL 100 MG CAPSULE PO SCH (20:58)
--- NOTE | 2018-12-07 22:20 | NUR ---
Dr Pena called to check on results of flu test - previous RN had not done test and did not report it needing to be done. This RN instructed Dr Pena test would be done. also checking on results of abd US and facial CT. No new orders given at this time. Will continue to monitor pt status closely
[2018-12-07] MEDS ORDERED: ALPRAZolam 0.5 MG TABLET PO ONE (22:30)
[2018-12-07 23:42] VITALS: BP 96/58
[2018-12-08] MEDS: PIPERACILLIN/TAZOBACTAM 3.375 GM in IV NORMAL SALINE 50ML 50 ML IV SCH ×5 (00:24→23:13)
[2018-12-08 03:29] VITALS: BP 117/42
[2018-12-08] MEDS: AMINO AC 3%/ELECTROLYTE/GLYCER 1,000 ML IV SCH ×2 (04:41→23:14)
[2018-12-08 05:57] LABS: BASO % 0 % (0-3); EOS # 0.1 x10^3/uL (0.0-0.7); EOS % 0 % (0-3); HEMATOCRIT 40.9 % (39.0-53.0); HEMOGLOBIN 13.4 g/dL (13.0-17.5); LYMPH # 1.5 x10^3/uL (1.0-4.8); LYMPH % 9 % (24-48); MEAN CORPUSCULAR HEMOGLOBIN 33 pg (25-35); MEAN CORPUSCULAR HGB CONC 33 g/dL (31-37); MEAN CORPUSCULAR VOLUME 100 fL (79-100); MONO # 1.9 x10^3/uL (0.0-1.1); MONO % 11 % (0-9); NEUT % 79 % (31-73); PLATELET COUNT 174 x10^3/uL (140-400); RED BLOOD COUNT 4.08 x10^6/uL (4.30-5.70); RED CELL DISTRIBUTION WIDTH 14.8 % (11.5-14.5); WHITE BLOOD COUNT 16.5 x10^3/uL (4.0-11.0)
[2018-12-08 06:07] LABS: ALBUMIN 2.5 g/dL (3.4-5.0); ALBUMIN/GLOBULIN RATIO 0.7 (1.0-1.7); CALCIUM 8.8 mg/dL (8.5-10.1); CREATININE 1.4 mg/dL (0.7-1.3); GFR 48.6; POTASSIUM 3.7 mmol/L (3.5-5.1); TOTAL BILIRUBIN 1.1 mg/dL (0.2-1.0)
[2018-12-08 06:13] LABS: CHOLESTEROL/HDL RATIO 1.9
[2018-12-08 06:54] LABS: INFLUENZA A PATIENT NEGATIVE (NEGATIVE); INFLUENZA B PATIENT NEGATIVE (NEGATIVE)
[2018-12-08] MEDS: LEVOTHYROXINE 88 MCG TABLET PO SCH (07:30)
[2018-12-08 07:49] VITALS: BP 99/58
--- NOTE | 2018-12-08 07:54 | RAD ---
Right upper quadrant abdominal ultrasound, 12/07/2018: HISTORY: Elevated bilirubin and lipase, possible pancreatitis The gallbladder is within normal limits in size. There is no sonographic evidence of cholelithiasis. The gallbladder kumar are not thickened. The common hepatic duct measures 5 mm. Multiple cysts are present in the liver, as also noted on the recent CT study. At least one of these cysts is septated. No solid hepatic mass is seen. The visualized portions of the right kidney are unremarkable. The pancreas was obscured by overlying bowel. IMPRESSION: 1. No gallbladder abnormality is detected. 2. Multiple hepatic cysts. 3. Obscuration of the pancreas by overlying bowel. Electronically signed by: Dhaval Pressley MD (12/08/2018 7:51 AM) [facility]
[2018-12-08] MEDS: HYDROCORTISONE 10 MG TABLET PO SCH ×2 (08:00→13:00)
[2018-12-08] MEDS ORDERED: HYDROCORTISONE 10 MG TABLET PO SCH (08:00)
--- NOTE | 2018-12-08 08:19 | PDOC2 ---
MARISSATRACIE Odette BIRCH 12/08/18 0819: UROLOGY CONSULT Date of Consult Date of Consult DATE: 12/08/18 TIME: 08:15 Reason for Consult Reason for Consult: Urinary retention/BPH Referring Physician Referring Physician: Dr. Guzman Identification/Chief Complaint Chief Complaint Urinary Retention/BPH Source Source: Patient History of Present Illness Reason for Visit: This 83 year old male was admitted with pancreatitis and during the course of his hospitalization complained of some LUTs/Frequency; he also has some concern as to whether he is emptying his bladder completely. This has been doing on for a couple of weeks. He denies dysuria, hematuria or abd/flank pain. He also den ies a history of prostate cancer or bladder cancer but thinks he may have BPH. A nurse had to straight cath him earlier for a return of He has never seen a Urologist to his knowledge. Dr. Guzman of medical team is wondering if OK to place [place] or if recommended in situations like this. Past Medical History Cardiovascular: HTN Pulmonary: No pertinent hx CENTRAL NERVOUS SYSTEM: Vertigo GI: Diverticulosis Heme/Onc: No pertinent hx Hepatobiliary: No pertinent hx Psych: No pertinent hx Rheumatologic: No pertinent hx Infectious disease: No pertinent hx ENT: Other (mucocele) Renal/: Benign prostatic enlarg., Other (LUTS) Endocrine: Hypothyroidism, Other (pituitary adenoma) Dermatology: No pertinent hx Past Surgical History Past Surgical History: Other Family History Family History: High Cholestrol, Hypertension Social History Quit (cigars) ALCOHOL: social (1 [place] every day) Drugs: None Current Medications Current Medications Current Medications Acetaminophen (Tylenol) 1,000 mg 1X ONCE PO Last administered on 12/07/18at 10:11; Start 12/07/18 at 10:00; Stop 12/07/18 at 10:01; Status DC Alprazolam (Xanax) 0.5 mg 1X ONCE PO Last administered on 12/07/18at 23:23; Start 12/07/18 at 22:30; Stop 12/07/18 at 22:31; Status DC Amantadine HCl (Symmetrel) 100 mg BID PO Last administered on 12/07/18at 20:58; Start 12/07/18 at 21:00 Amino Acids/ Glycerin/ Electrolytes 1,000 ml @ 80 mls/hr [id number] IV Last administered on 12/08/18at 04:41; Start 12/07/18 at 14:45 Carbidopa/Levodopa (Sinemet Cr) 1 tab.sa BID PO Last administered on 12/07/18at 20:55; Start 12/07/18 at 21:00 Ceftriaxone Sodium (Rocephin) 1 gm 1X ONCE IVP Last administered on 12/07/18at 10:11; Start 12/07/18 at 10:00; Stop 12/07/18 at 10:01; Status DC Daptomycin 550 mg/ Sodium Chloride 50 ml @ 100 mls/hr Q24H IV Last administered on 12/07/18at 14:18; Start 12/07/18 at 13:00 Doxycycline Hyclate (Vibra-Tab) 100 mg BID PO Last administered on 12/07/18at 20:55; Start 12/07/18 at 12:00 Enoxaparin Sodium (Lovenox 40mg Syringe) 40 mg Q24H SQ ; Start 12/07/18 at 12:00 Enoxaparin Sodium (Lovenox 40mg Syringe) 40 mg Q24H SQ ; Start 12/07/18 at 14:45; Status UNV Famotidine (Pepcid) 20 mg BID PO Last administered on 12/07/18at 20:55; Start 12/07/18 at 21:00 Hydrocortisone (Cortef) 10 mg AFTRNOON PO ; Start 12/07/18 at 17:30 Hydrocortisone (Cortef) 10 mg DAILYWBKFT PO ; Start 12/08/18 at 08:00; Status Cancel Hydrocortisone (Cortef) 15 mg DAILY08 PO ; Start 12/08/18 at 08:00 Info (CONTRAST GIVEN -- Rx MONITORING) 1 each PRN DAILY PRN MC SEE COMMENTS; Start 12/07/18 at 10:00; Stop 12/09/18 at 09:59 Iohexol (Omnipaque 350 Mg/ml) 90 ml 1X ONCE IV Last administered on 12/07/18at 10:38; Start 12/07/18 at 10:00; Stop 12/07/18 at 10:01; Status DC Iohexol (Omnipaque 350 Mg/ml) 100 ml STK-MED ONCE .ROUTE ; Start 12/07/18 at 14:54; Stop 12/07/18 at 14:55; Status DC Levothyroxine Sodium (Synthroid) 88 mcg DAILYAC PO ; Start 12/08/18 at 07:30 Piperacillin Sod/ Tazobactam Sod 3.375 gm/Sodium Chloride 50 ml @ 100 mls/hr Q6HRS IV Last administered on 12/08/18at 05:22; Start 12/07/18 at 12:00 Sodium Chloride 1,000 ml @ 125 mls/hr Q8H IV Last administered on 12/07/18at 08:20; Start 12/07/18 at 08:20; Stop 12/07/18 at 16:19; Status DC Sodium Chloride 1,000 ml @ 1,000 mls/hr Q1H IV Last administered on 12/07/18at 15:15; Start 12/07/18 at 15:15; Stop 12/07/18 at 16:14; Status DC Tamsulosin HCl (Flomax) 0.4 mg QHS PO Last administered on 12/07/18at 20:55; Start 12/07/18 at 21:00 Valacyclovir HCl (Valtrex) 1,000 mg TID PO Last administered on 12/07/18at 20:55; Start 12/07/18 at 15:00 Vancomycin HCl 1.25 gm/Sodium Chloride 250 ml @ 166.667 mls/hr 1X ONCE IV ; Start 12/07/18 at 12:30; Stop 12/07/18 at 13:59; Status Cancel Allergies Allergies: Coded Allergies: No Known Drug Allergies (Unverified , 02/23/17) ROS Review Of Systems: CONSTITUTIONAL: No fever or chills EYES: No recent changes SKIN: No rash or itching CARDIOVASCULAR: No chest pain, syncope, palpitations, or edema RESPIRATORY: No SOB or cough GASTROINTESTINAL: No nausea, vomiting or abdominal pain NEUROLOGICAL: No headaches or weakness ENDOCRINE: No cold or heat intolerance GENITOURINARY: + urgency, + frequency of urination. No hematuria/dysuria MUSCULOSKELETAL: No back pain or joint pain LYMPHATICS: No enlarged lymph nodes PSYCHIATRIC: No anxiety or depression Physical Exam Physical Exam: General: Pleasant, no acute distress, well groomed Eyes: conjunctiva anicteric, eyes full range of motion ENT: moist oral mucosa, normal dentition Neck: Trachea midline, no masses Respiratory: unlabored breathing, not using accessory muscles, Abdomen: nontender, nondistended, no hepatosplenomegaly, no masses : PVR is 240 via bladder scan Skin: no rashes or skin lesions on visualized skin Psych: normal mood, affect. Alert and oriented x 3. Vitals VITALS Vital Signs Date Time Temp Pulse Resp B/P (MAP) Pulse Ox O2 Delivery O2 Flow Rate FiO2 12/08/18 03:29 99.9 54 20 117/42 (67) 93 BiPAP/CPAP 99.9 12/07/18 23:42 3.0 Labs Labs Laboratory Tests Test 12/07/18 08:35 12/07/18 09:58 12/08/18 04:30 12/08/18 05:22 White Blood Count 21.1 x10^3/uL (4.0-11.0) 16.5 x10^3/uL (4.0-11.0) Red Blood Count 4.41 x10^6/uL (4.30-5.70) 4.08 x10^6/uL (4.30-5.70) Hemoglobin 14.6 g/dL (13.0-17.5) 13.4 g/dL (13.0-17.5) Hematocrit 43.6 % (39.0-53.0) 40.9 % (39.0-53.0) Mean Corpuscular Volume 99 fL (79-100) 100 fL (79-100) Mean Corpuscular Hemoglobin 33 pg (25-35) 33 pg (25-35) Mean Corpuscular Hemoglobin Concent 34 g/dL (31-37) 33 g/dL (31-37) Red Cell Distribution Width 14.9 % (11.5-14.5) 14.8 % (11.5-14.5) Platelet Count 215 x10^3/uL (140-400) 174 x10^3/uL (140-400) Neutrophils (%) (Auto) 77 % (31-73) 79 % (31-73) Lymphocytes (%) (Auto) 9 % (24-48) 9 % (24-48) Monocytes (%) (Auto) 14 % (0-9) 11 % (0-9) Eosinophils (%) (Auto) 0 % (0-3) 0 % (0-3) Basophils (%) (Auto) 0 % (0-3) 0 % (0-3) Neutrophils # (Auto) 16.2 x10^3uL (1.8-7.7) 13.0 x10^3uL (1.8-7.7) Lymphocytes # (Auto) 1.8 x10^3/uL (1.0-4.8) 1.5 x10^3/uL (1.0-4.8) Monocytes # (Auto) 3.0 x10^3/uL (0.0-1.1) 1.9 x10^3/uL (0.0-1.1) Eosinophils # (Auto) 0.0 x10^3/uL (0.0-0.7) 0.1 x10^3/uL (0.0-0.7) Basophils # (Auto) 0.0 x10^3/uL (0.0-0.2) 0.0 x10^3/uL (0.0-0.2) Segmented Neutrophils % 72 % (35-66) Band Neutrophils % 4 % (0-9) Lymphocytes % 13 % (24-48) Monocytes % 11 % (0-10) Platelet Estimate Adequate (ADEQUATE) Prothrombin Time 15.2 SEC (11.7-14.0) Prothromb Time International Ratio 1.2 (0.8-1.1) Sodium Level 133 mmol/L (136-145) 134 mmol/L (136-145) Potassium Level 3.7 mmol/L (3.5-5.1) 3.7 mmol/L (3.5-5.1) Chloride Level 97 mmol/L (98-107) 98 mmol/L (98-107) Carbon Dioxide Level 27 mmol/L (21-32) 27 mmol/L (21-32) Anion Gap 9 (6-14) 9 (6-14) Blood Urea Nitrogen 21 mg/dL (8-26) 24 mg/dL (8-26) Creatinine 1.3 mg/dL (0.7-1.3) 1.4 mg/dL (0.7-1.3) Estimated GFR (Cockcroft-Gault) 53.0 48.6 BUN/Creatinine Ratio 16 (6-20) 17 (6-20) Glucose Level 108 mg/dL (70-99) 116 mg/dL (70-99) Lactic Acid Level 1.3 mmol/L (0.4-2.0) Calcium Level 9.2 mg/dL (8.5-10.1) 8.8 mg/dL (8.5-10.1) Magnesium Level 2.1 mg/dL (1.8-2.4) Total Bilirubin 1.5 mg/dL (0.2-1.0) 1.1 mg/dL (0.2-1.0) Direct Bilirubin 0.3 mg/dL (0.0-0.2) Aspartate Amino Transf (AST/SGOT) 17 U/L (15-37) 12 U/L (15-37) Alanine Aminotransferase (ALT/SGPT) 12 U/L (16-63) 7 U/L (16-63) Alkaline Phosphatase 38 U/L (46-116) 35 U/L (46-116) Lactate Dehydrogenase 203 U/L (85-227) Creatine Kinase 64 U/L (39-308) Troponin I Quantitative < 0.017 ng/mL (0.000-0.055) YB-Ykh-R-Type Natriuretic Peptide 985 pg/mL (0-449) Total Protein 6.5 g/dL (6.4-8.2) 6.0 g/dL (6.4-8.2) Albumin 3.0 g/dL (3.4-5.0) 2.5 g/dL (3.4-5.0) Albumin/Globulin Ratio 0.9 (1.0-1.7) 0.7 (1.0-1.7) Amylase Level 117 U/L (25-115) 53 U/L (25-115) Lipase 496 U/L (73-393) 176 U/L (73-393) Thyroid Stimulating Hormone (TSH) 0.293 uIU/mL (0.358-3.74) Free Thyroxine 1.24 ng/dL (0.76-1.46) Cortisol AM Sample 39.1 ug/dL (4.3-22.4) Urine Collection Type Unknown Urine Color [place] Urine Clarity Clear Urine pH 7.5 Urine Specific [place] 1.025 Urine Protein 30 mg/dL (NEG-TRACE) Urine Glucose (UA) Negative mg/dL (NEG) Urine Ketones (Stick) Trace mg/dL (NEG) Urine Blood Moderate (NEG) Urine Nitrite Negative (NEG) Urine Bilirubin Small (NEG) Urine Urobilinogen Dipstick 1.0 mg/dL (0.2 mg/dL) Urine Leukocyte Esterase Trace (NEG) Urine RBC 11-20 /HPF (0-2) Urine WBC 1-4 /HPF (0-4) Urine Bacteria 0 /HPF (0-FEW) Urine Mucus Mod /LPF Triglycerides Level 80 mg/dL (0-150) Cholesterol Level 115 mg/dL (0-200) LDL Cholesterol, Calculated 37 mg/dL (0-100) VLDL Cholesterol, Calculated 16 mg/dL (0-40) Non-HDL Cholesterol Calculated 53 mg/dL (0-129) HDL Cholesterol 62 mg/dL (40-60) Cholesterol/HDL Ratio 1.9 Influenza Type A Antigen Negative (NEGATIVE) Influenza Type B Antigen Negative (NEGATIVE) Laboratory Tests Test 12/07/18 08:35 12/07/18 09:58 12/08/18 04:30 12/08/18 05:22 White Blood Count 21.1 x10^3/uL (4.0-11.0) 16.5 x10^3/uL (4.0-11.0) Red Blood Count 4.41 x10^6/uL (4.30-5.70) 4.08 x10^6/uL (4.30-5.70) Hemoglobin 14.6 g/dL (13.0-17.5) 13.4 g/dL (13.0-17.5) Hematocrit 43.6 % (39.0-53.0) 40.9 % (39.0-53.0) Mean Corpuscular Volume 99 fL (79-100) 100 fL (79-100) Mean Corpuscular Hemoglobin 33 pg (25-35) 33 pg (25-35) Mean Corpuscular Hemoglobin Concent 34 g/dL (31-37) 33 g/dL (31-37) Red Cell Distribution Width 14.9 % (11.5-14.5) 14.8 % (11.5-14.5) Platelet Count 215 x10^3/uL (140-400) 174 x10^3/uL (140-400) Neutrophils (%) (Auto) 77 % (31-73) 79 % (31-73) Lymphocytes (%) (Auto) 9 % (24-48) 9 % (24-48) Monocytes (%) (Auto) 14 % (0-9) 11 % (0-9) Eosinophils (%) (Auto) 0 % (0-3) 0 % (0-3) Basophils (%) (Auto) 0 % (0-3) 0 % (0-3) Neutrophils # (Auto) 16.2 x10^3uL (1.8-7.7) 13.0 x10^3uL (1.8-7.7) Lymphocytes # (Auto) 1.8 x10^3/uL (1.0-4.8) 1.5 x10^3/uL (1.0-4.8) Monocytes # (Auto) 3.0 x10^3/uL (0.0-1.1) 1.9 x10^3/uL (0.0-1.1) Eosinophils # (Auto) 0.0 x10^3/uL (0.0-0.7) 0.1 x10^3/uL (0.0-0.7) Basophils # (Auto) 0.0 x10^3/uL (0.0-0.2) 0.0 x10^3/uL (0.0-0.2) Segmented Neutrophils % 72 % (35-66) Band Neutrophils % 4 % (0-9) Lymphocytes % 13 % (24-48) Monocytes % 11 % (0-10) Platelet Estimate Adequate (ADEQUATE) Prothrombin Time 15.2 SEC (11.7-14.0) Prothromb Time International Ratio 1.2 (0.8-1.1) Sodium Level 133 mmol/L (136-145) 134 mmol/L (136-145) Potassium Level 3.7 mmol/L (3.5-5.1) 3.7 mmol/L (3.5-5.1) Chloride Level 97 mmol/L (98-107) 98 mmol/L (98-107) Carbon Dioxide Level 27 mmol/L (21-32) 27 mmol/L (21-32) Anion Gap 9 (6-14) 9 (6-14) Blood Urea Nitrogen 21 mg/dL (8-26) 24 mg/dL (8-26) Creatinine 1.3 mg/dL (0.7-1.3) 1.4 mg/dL (0.7-1.3) Estimated GFR (Cockcroft-Gault) 53.0 48.6 BUN/Creatinine Ratio 16 (6-20) 17 (6-20) Glucose Level 108 mg/dL (70-99) 116 mg/dL (70-99) Lactic Acid Level 1.3 mmol/L (0.4-2.0) Calcium Level 9.2 mg/dL (8.5-10.1) 8.8 mg/dL (8.5-10.1) Magnesium Level 2.1 mg/dL (1.8-2.4) Total Bilirubin 1.5 mg/dL (0.2-1.0) 1.1 mg/dL (0.2-1.0) Direct Bilirubin 0.3 mg/dL (0.0-0.2) Aspartate Amino Transf (AST/SGOT) 17 U/L (15-37) 12 U/L (15-37) Alanine Aminotransferase (ALT/SGPT) 12 U/L (16-63) 7 U/L (16-63) Alkaline Phosphatase 38 U/L (46-116) 35 U/L (46-116) Lactate Dehydrogenase 203 U/L (85-227) Creatine Kinase 64 U/L (39-308) Troponin I Quantitative < 0.017 ng/mL (0.000-0.055) ZW-Jpr-B-Type Natriuretic Peptide 985 pg/mL (0-449) Total Protein 6.5 g/dL (6.4-8.2) 6.0 g/dL (6.4-8.2) Albumin 3.0 g/dL (3.4-5.0) 2.5 g/dL (3.4-5.0) Albumin/Globulin Ratio 0.9 (1.0-1.7) 0.7 (1.0-1.7) Amylase Level 117 U/L (25-115) 53 U/L (25-115) Lipase 496 U/L (73-393) 176 U/L (73-393) Thyroid Stimulating Hormone (TSH) 0.293 uIU/mL (0.358-3.74) Free Thyroxine 1.24 ng/dL (0.76-1.46) Cortisol AM Sample 39.1 ug/dL (4.3-22.4) Urine Collection Type Unknown Urine Color [place] Urine Clarity Clear Urine pH 7.5 Urine Specific [place] 1.025 Urine Protein 30 mg/dL (NEG-TRACE) Urine Glucose (UA) Negative mg/dL (NEG) Urine Ketones (Stick) Trace mg/dL (NEG) Urine Blood Moderate (NEG) Urine Nitrite Negative (NEG) Urine Bilirubin Small (NEG) Urine Urobilinogen Dipstick 1.0 mg/dL (0.2 mg/dL) Urine Leukocyte Esterase Trace (NEG) Urine RBC 11-20 /HPF (0-2) Urine WBC 1-4 /HPF (0-4) Urine Bacteria 0 /HPF (0-FEW) Urine Mucus Mod /LPF Triglycerides Level 80 mg/dL (0-150) Cholesterol Level 115 mg/dL (0-200) LDL Cholesterol, Calculated 37 mg/dL (0-100) VLDL Cholesterol, Calculated 16 mg/dL (0-40) Non-HDL Cholesterol Calculated 53 mg/dL (0-129) HDL Cholesterol 62 mg/dL (40-60) Cholesterol/HDL Ratio 1.9 Influenza Type A Antigen Negative (NEGATIVE) Influenza Type B Antigen Negative (NEGATIVE) Assessment/Plan Assessment/Plan Bladder scan PVR is 240= Ok to place serrano in light of medical team's desire to measure output and assist with treatment of pancreatitis. Recommend voiding trial in a few days when he is feeling better overall. Recommend Flomax. Discussed case with Dr. Hutson who will check on patient later today. JUAN HUTSON MD 12/08/18 8931: UROLOGY CONSULT Assessment/Plan Assessment/Plan Patient seen and examined. Voiding has improved, voided 600 ml just before my exam. He wants to avoid serrano if possible, I think that is reasonable to not place serrano at this time. Continue flomax 0.4 mg daily. TRACIE ANN APRN December 08, 2018 08:19 JUAN HUTSON MD December 08, 2018 16:19
[2018-12-08] MEDS: CARBIDOPA/LEVODOPA CR 25/100MG TABLET.SA. PO SCH ×2 (09:00→21:00)
[2018-12-08] MEDS: AMANTADINE HCL 100 MG CAPSULE PO SCH ×2 (09:00→21:00)
--- NOTE | 2018-12-08 09:11 | PDOC ---
PROGRESS NOTES Subjective Restless night, he still feels dyspneic, no obvious pain though, wearing CPAP, had alprazolam, drowsy currently but awakens to name then drifts back to sleep. Labs improved, able to eat some breakfast, taking po meds, good UO, no BM Objective Afebrile - Tmax 99.9 BP: as low as 90s/60s overnight with some overnight bradycardia General: drowsy Heart: RRR Lungs: CTA Abd: mild distension, soft, no tenderness elicited with palpation, no masses felt Ext: no C/C/E, minimal current tremor WBC: improved to 16.5 Hgb: 13.4 K+: 3.7 Creat: 1.4 Amylase and lipase now normal, triglycerides 80, albumin 2.5 US abd negative for gallstones, hepatic cysts present Vital Signs Vital Signs Date Time Temp Pulse Resp B/P (MAP) Pulse Ox O2 Delivery O2 Flow Rate FiO2 12/08/18 07:49 98.7 62 24 99/58 (72) 92 Room Air 98.7 12/07/18 23:42 3.0 I & O Intake and Output 12/08/18 06:59 Intake Total 490 ml Output Total 1600 ml Balance -1110 ml Intake Oral 440 ml IV Total 50 ml Output Urine Total 1600 ml # Voids 1 Assessment and Plan dyspnea - CTA chest showed some atelectasis, add neb tx, IS, check echo, Pulm following acute pancreatitis - labs now normal after bowel rest, no evidence of gallstones or hypertriglyceridemia, GI consulted, tolerating diet, but Albumin decreased possible diverticulitis - continue Zosyn sepsis - awaiting cultures, ID consult, IV abx, IVF BPH with LUTS - Urology consulted and Prather placed, has a large prostate on imaging with bladder wall thickening consistent with chronic obstructive uropathy, tamsulosin started Parkinson's - his PO medications dose not available here, may need dose from home, PT/OT Protein malnutrition - continue Procalamine, begin diet Hypothyroidism - cont home dose TONYA - CPAP from home hx of pituitary adenoma - continue Cortef, may need IV due to stress CKD stage 3 - stable Arlene PINEDA MD December 08, 2018 09:11
--- NOTE | 2018-12-08 09:43 | CONS ---
DATE OF CONSULTATION: 12/07/2018 REFERRING PHYSICIAN: Dr. Sukumar Piña. REASON FOR CONSULTATION: Fever. 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 The patient had inability to ambulate. He also complained of cough without mucopurulent sputum production and chest tightness. He denied any nausea, vomiting, abdominal pain. Denied any focal weakness though continued to remain weak and required assistance from his daughter and . The patient had a grandson who was visiting from outside town this weekend who had some URI symptoms. The patient did not have any headache, sore throat, difficulty swallowing. Did eat breakfast yesterday. His urine output was somewhat decreased and was dark, which his attributed to decreased p.o. intake. He recently returned from [place] to attend graduation of his grandson on 11/27/2018. He returned from [place] where he usually goes during this time of the year and returned on 11/13/2018. The patient had been to [place] sometime in July. The patient was given a dose of Rocephin. White count was elevated at 21.1 with neutrophil of 77% and bands of 4. Sodium was 133, creatinine of 1.3, lactate of 1.3. ProBNP at 985. LFTs were within normal limits except for total bilirubin of 1.5. No outdoor activity. No recent immunization. No antibiotic prior to admission. UA showed moderate blood, leukocyte esterase trace, wbc's 1-4. The patient underwent a chest x-ray, which showed no acute radiographic abnormality. CTA of the chest showed no evidence of central PE, mild dependent atelectasis, minimal coronary artery disease. Left upper quadrant abdominal densities in the region of the pancreatic tail incompletely visualized. The appearance suggests inflammation, which may originate from pancreatic tail, although lower abdominal inflammatory process such as diverticulitis with superior extension could also produce this appearance. CT scan of the abdomen and pelvis is suggested for further evaluation. ID consult has been requested for further evaluation and treatment of the fever. PAST MEDICAL HISTORY: Parkinson's disease, deep brain stimulator in place, history of pituitary tumor, on hormonal supplements. PAST SURGICAL HISTORY: Status post appendectomy. CURRENT MEDICATION: IV ceftriaxone x 1. ALLERGIES: No known drug allergies. SOCIAL HISTORY: No smoking, or illicit drug use. 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 PHYSICAL EXAMINATION: VITAL SIGNS: Temperature 102.1, pulse 72, respiratory rate 33, blood pressure 109/50, oxygen saturation 100% on 3 liters. CONSTITUTIONAL: Well-developed, well-nourished male, appears tired, cooperative, in no acute distress, hard of hearing. HEENT: Normocephalic, atraumatic, anicteric. No thrush. Oral mucosa moist. No oropharyngeal exudate noted. NECK: Supple. No JVD. No meningismus. LUNGS: Clear anteriorly. No rhonchi. HEART: S1, S2, no murmurs. ABDOMEN: Soft, nontender, nondistended. No rebound, no guarding. No masses felt. EXTREMITIES: No edema, no cyanosis, no clubbing, no calf tenderness. NEUROLOGIC: Alert, awake, hard of hearing, able to move all four extremities. DERMATOLOGIC: Warm, dry. No generalized rash. MUSCULOSKELETAL: No joint effusion. No decrease in range of motion. LABORATORY DATA: WBC 21.1, hemoglobin 14.6, hematocrit 43.6, platelets 215, lymphocytes 9, monocytes 14, eosinophils 2, basophils 0, neutrophils 16.2, segments 72, bands 4. Sodium 133, potassium 3.7, chloride 97, bicarbonate 27, BUN 21, creatinine 1.3, glucose 108, lactate 1.3, calcium 9.2, magnesium 2.1, total bilirubin 1.5. AST 14, ALT 8, alkaline phosphatase 39. BNP 985, total protein 6.4, albumin 3.0. TSH 0.0293. Free T4 . UA shows trace leukocyte esterase, 1-4 wbc's, moderate blood. Micro: Blood cultures are pending. Cortisol level pending. DIAGNOSTIC DATA: Chest x-ray: No acute radiographic abnormality. CTA chest as above. IMPRESSION: 1. Febrile illness, etiology unclear.CT shows pancreatic abnormality 2. Cough, chest pain, shortness of breath. CTA negative for pulmonary embolism. No infiltrate noted. Could be viral versus other etiologies. 3. Leukocytosis 4. Parkinson's disease. 5. History of pituitary tumor, on steroids for 50 years. 6. Immunosuppression. 7. Hematuria. 8. Hypothyroidism. 9. Pancreatic changes on CTA. RECOMMENDATIONS: 1. We will broaden his coverage with Daptomycin, Zosyn and doxycycline. 2. Obtain CT of the abdomen and pelvis ; CT head and maxillofacial area. 3. Follow up lipase. 4. Obtain urine Legionella antigen and strep pneumo antigen, though chest x-ray is not showing any infiltrate at this time. 5. Follow up blood culture results and lab in a.m. 6. Continue supportive care. 7. Depending on ct results will need other speciality input Discussed with DR Harish Piña, DR New Discussed with and daughter at bedside Thank you for allowing Infectious Disease to participate in this patient's care. We will follow along with you. If you have any questions, do not hesitate to contact. ALLIE GLASER MD DR: ELENI/john JOB#: [id number] / [id number] ESPERANZA
--- NOTE | 2018-12-08 09:52 | PDOC ---
PULMONARY PROGRESS NOTES Subjective resting on home CPAP low grade fever Vitals Vital Signs Date Time Temp Pulse Resp B/P (MAP) Pulse Ox O2 Delivery O2 Flow Rate FiO2 12/08/18 07:49 98.7 62 24 99/58 (72) 92 Room Air 98.7 12/07/18 23:42 3.0 Lungs: Clear Cardiovascular: S1 Abdomen: Soft, Non-tender Extremities: No Edema Skin: Warm Labs Laboratory Tests Test 12/07/18 08:35 12/07/18 09:58 12/08/18 04:30 12/08/18 05:22 White Blood Count 21.1 x10^3/uL (4.0-11.0) 16.5 x10^3/uL (4.0-11.0) Red Blood Count 4.41 x10^6/uL (4.30-5.70) 4.08 x10^6/uL (4.30-5.70) Hemoglobin 14.6 g/dL (13.0-17.5) 13.4 g/dL (13.0-17.5) Hematocrit 43.6 % (39.0-53.0) 40.9 % (39.0-53.0) Mean Corpuscular Volume 99 fL (79-100) 100 fL (79-100) Mean Corpuscular Hemoglobin 33 pg (25-35) 33 pg (25-35) Mean Corpuscular Hemoglobin Concent 34 g/dL (31-37) 33 g/dL (31-37) Red Cell Distribution Width 14.9 % (11.5-14.5) 14.8 % (11.5-14.5) Platelet Count 215 x10^3/uL (140-400) 174 x10^3/uL (140-400) Neutrophils (%) (Auto) 77 % (31-73) 79 % (31-73) Lymphocytes (%) (Auto) 9 % (24-48) 9 % (24-48) Monocytes (%) (Auto) 14 % (0-9) 11 % (0-9) Eosinophils (%) (Auto) 0 % (0-3) 0 % (0-3) Basophils (%) (Auto) 0 % (0-3) 0 % (0-3) Neutrophils # (Auto) 16.2 x10^3uL (1.8-7.7) 13.0 x10^3uL (1.8-7.7) Lymphocytes # (Auto) 1.8 x10^3/uL (1.0-4.8) 1.5 x10^3/uL (1.0-4.8) Monocytes # (Auto) 3.0 x10^3/uL (0.0-1.1) 1.9 x10^3/uL (0.0-1.1) Eosinophils # (Auto) 0.0 x10^3/uL (0.0-0.7) 0.1 x10^3/uL (0.0-0.7) Basophils # (Auto) 0.0 x10^3/uL (0.0-0.2) 0.0 x10^3/uL (0.0-0.2) Segmented Neutrophils % 72 % (35-66) Band Neutrophils % 4 % (0-9) Lymphocytes % 13 % (24-48) Monocytes % 11 % (0-10) Platelet Estimate Adequate (ADEQUATE) Prothrombin Time 15.2 SEC (11.7-14.0) Prothromb Time International Ratio 1.2 (0.8-1.1) Sodium Level 133 mmol/L (136-145) 134 mmol/L (136-145) Potassium Level 3.7 mmol/L (3.5-5.1) 3.7 mmol/L (3.5-5.1) Chloride Level 97 mmol/L (98-107) 98 mmol/L (98-107) Carbon Dioxide Level 27 mmol/L (21-32) 27 mmol/L (21-32) Anion Gap 9 (6-14) 9 (6-14) Blood Urea Nitrogen 21 mg/dL (8-26) 24 mg/dL (8-26) Creatinine 1.3 mg/dL (0.7-1.3) 1.4 mg/dL (0.7-1.3) Estimated GFR (Cockcroft-Gault) 53.0 48.6 BUN/Creatinine Ratio 16 (6-20) 17 (6-20) Glucose Level 108 mg/dL (70-99) 116 mg/dL (70-99) Lactic Acid Level 1.3 mmol/L (0.4-2.0) Calcium Level 9.2 mg/dL (8.5-10.1) 8.8 mg/dL (8.5-10.1) Magnesium Level 2.1 mg/dL (1.8-2.4) Total Bilirubin 1.5 mg/dL (0.2-1.0) 1.1 mg/dL (0.2-1.0) Direct Bilirubin 0.3 mg/dL (0.0-0.2) Aspartate Amino Transf (AST/SGOT) 17 U/L (15-37) 12 U/L (15-37) Alanine Aminotransferase (ALT/SGPT) 12 U/L (16-63) 7 U/L (16-63) Alkaline Phosphatase 38 U/L (46-116) 35 U/L (46-116) Lactate Dehydrogenase 203 U/L (85-227) Creatine Kinase 64 U/L (39-308) Troponin I Quantitative < 0.017 ng/mL (0.000-0.055) [id number]-Type Natriuretic Peptide 985 pg/mL (0-449) Total Protein 6.5 g/dL (6.4-8.2) 6.0 g/dL (6.4-8.2) Albumin 3.0 g/dL (3.4-5.0) 2.5 g/dL (3.4-5.0) Albumin/Globulin Ratio 0.9 (1.0-1.7) 0.7 (1.0-1.7) Amylase Level 117 U/L (25-115) 53 U/L (25-115) Lipase 496 U/L (73-393) 176 U/L (73-393) Thyroid Stimulating Hormone (TSH) 0.293 uIU/mL (0.358-3.74) Free Thyroxine 1.24 ng/dL (0.76-1.46) Cortisol AM Sample 39.1 ug/dL (4.3-22.4) Urine Collection Type Unknown Urine Color Mindi Urine Clarity Clear Urine pH 7.5 Urine Specific Leigh 1.025 Urine Protein 30 mg/dL (NEG-TRACE) Urine Glucose (UA) Negative mg/dL (NEG) Urine Ketones (Stick) Trace mg/dL (NEG) Urine Blood Moderate (NEG) Urine Nitrite Negative (NEG) Urine Bilirubin Small (NEG) Urine Urobilinogen Dipstick 1.0 mg/dL (0.2 mg/dL) Urine Leukocyte Esterase Trace (NEG) Urine RBC 11-20 /HPF (0-2) Urine WBC 1-4 /HPF (0-4) Urine Bacteria 0 /HPF (0-FEW) Urine Mucus Mod /LPF Triglycerides Level 80 mg/dL (0-150) Cholesterol Level 115 mg/dL (0-200) LDL Cholesterol, Calculated 37 mg/dL (0-100) VLDL Cholesterol, Calculated 16 mg/dL (0-40) Non-HDL Cholesterol Calculated 53 mg/dL (0-129) HDL Cholesterol 62 mg/dL (40-60) Cholesterol/HDL Ratio 1.9 Influenza Type A Antigen Negative (NEGATIVE) Influenza Type B Antigen Negative (NEGATIVE) Laboratory Tests Test 12/07/18 09:58 12/08/18 04:30 12/08/18 05:22 Urine Collection Type Unknown Urine Color Mindi Urine Clarity Clear Urine pH 7.5 Urine Specific Leigh 1.025 Urine Protein 30 mg/dL (NEG-TRACE) Urine Glucose (UA) Negative mg/dL (NEG) Urine Ketones (Stick) Trace mg/dL (NEG) Urine Blood Moderate (NEG) Urine Nitrite Negative (NEG) Urine Bilirubin Small (NEG) Urine Urobilinogen Dipstick 1.0 mg/dL (0.2 mg/dL) Urine Leukocyte Esterase Trace (NEG) Urine RBC 11-20 /HPF (0-2) Urine WBC 1-4 /HPF (0-4) Urine Bacteria 0 /HPF (0-FEW) Urine Mucus Mod /LPF White Blood Count 16.5 x10^3/uL (4.0-11.0) Red Blood Count 4.08 x10^6/uL (4.30-5.70) Hemoglobin 13.4 g/dL (13.0-17.5) Hematocrit 40.9 % (39.0-53.0) Mean Corpuscular Volume 100 fL (79-100) Mean Corpuscular Hemoglobin 33 pg (25-35) Mean Corpuscular Hemoglobin Concent 33 g/dL (31-37) Red Cell Distribution Width 14.8 % (11.5-14.5) Platelet Count 174 x10^3/uL (140-400) Neutrophils (%) (Auto) 79 % (31-73) Lymphocytes (%) (Auto) 9 % (24-48) Monocytes (%) (Auto) 11 % (0-9) Eosinophils (%) (Auto) 0 % (0-3) Basophils (%) (Auto) 0 % (0-3) Neutrophils # (Auto) 13.0 x10^3uL (1.8-7.7) Lymphocytes # (Auto) 1.5 x10^3/uL (1.0-4.8) Monocytes # (Auto) 1.9 x10^3/uL (0.0-1.1) Eosinophils # (Auto) 0.1 x10^3/uL (0.0-0.7) Basophils # (Auto) 0.0 x10^3/uL (0.0-0.2) Sodium Level 134 mmol/L (136-145) Potassium Level 3.7 mmol/L (3.5-5.1) Chloride Level 98 mmol/L (98-107) Carbon Dioxide Level 27 mmol/L (21-32) Anion Gap 9 (6-14) Blood Urea Nitrogen 24 mg/dL (8-26) Creatinine 1.4 mg/dL (0.7-1.3) Estimated GFR (Cockcroft-Gault) 48.6 BUN/Creatinine Ratio 17 (6-20) Glucose Level 116 mg/dL (70-99) Calcium Level 8.8 mg/dL (8.5-10.1) Total Bilirubin 1.1 mg/dL (0.2-1.0) Aspartate Amino Transf (AST/SGOT) 12 U/L (15-37) Alanine Aminotransferase (ALT/SGPT) 7 U/L (16-63) Alkaline Phosphatase 35 U/L (46-116) Total Protein 6.0 g/dL (6.4-8.2) Albumin 2.5 g/dL (3.4-5.0) Albumin/Globulin Ratio 0.7 (1.0-1.7) Triglycerides Level 80 mg/dL (0-150) Cholesterol Level 115 mg/dL (0-200) LDL Cholesterol, Calculated 37 mg/dL (0-100) VLDL Cholesterol, Calculated 16 mg/dL (0-40) Non-HDL Cholesterol Calculated 53 mg/dL (0-129) HDL Cholesterol 62 mg/dL (40-60) Cholesterol/HDL Ratio 1.9 Amylase Level 53 U/L (25-115) Lipase 176 U/L (73-393) Influenza Type A Antigen Negative (NEGATIVE) Influenza Type B Antigen Negative (NEGATIVE) Medications Active Scripts Medications Dose Route/Sig Max Daily Dose Days Date Category Rimantadine Hcl 100 Mg Tablet 100 Mg PO 12/07/18 Reported Amitriptyline Hcl 10 Mg Tablet 10 Mg PO DAILY 12/07/18 Reported Valacyclovir (Valacyclovir Hcl) 1,000 Mg Tablet 1 Tab PO TID 12/07/18 Reported Tylenol With Codeine #3 Tablet (Acetaminophen/Codeine Phosphate) 1 Each Tablet 1 Tab PO PRN Q6HRS PRN 12/07/18 Reported Modafinil 100 Mg Tablet 100 Mg PO 12/07/18 Reported Ranitidine Hcl 150 Mg Capsule 1 Cap PO BID 12/07/18 Reported Synthroid (Levothyroxine Sodium) 88 Mcg Tablet 88 Mcg PO DAILYAC 12/07/18 Reported Valsartan-Hctz 80-12.5 Mg Tab (Valsartan/Hydrochlorothiazide) 1 Each Tablet 1 Each PO DAILY 12/07/18 Reported Rytary ER 36.25 mg-145 mg Cap (Carbidopa/Levodopa) 1 Each Capsule.er 1 Each PO 12/07/18 Reported Cortef (Hydrocortisone) 10 Mg Tablet 10 Mg PO 12/07/18 Reported Impression . 1. Dyspnea with acute hypoxic respiratory failure secondary to sepsis. 2. Sepsis. The source is not so obvious. There is no definite consolidation seen on the chest CT. Likely pancreatitis (Lipase, amlyase elevated). ct sinuses, abd/pelvis reviewed 3. Immunocompromised status. Now comes in with sepsis and high grade fever. 4. Long history of alcoholism. Need to rule out alcoholic pancreatitis. 5. Mildly elevated bilirubin. 6. TONYA Plan . 1. Discussed with the patient's in detail. 2. Broad-spectrum antibiotics. 3. Follow all cultures. 4. Nasal swab for influenza neg 5. CT head and sinuses.reviewed 6. CT abdomen and pelvis reviewed 7. Elevated amylase and lipase. consider GI consult 8. No evidence of pulmonary embolism and no focus of infection in the lungs by CT chest. 9. home CPAP [facility] IFRAH MCFARLANE MD December 08, 2018 09:52
[2018-12-08] MEDS: FAMOTIDINE 20 MG TABLET. PO SCH ×2 (11:03→23:18)
[2018-12-08] MEDS: DOXYCYCLINE HYCLATE 100 MG TABLET PO SCH ×2 (11:03→23:18)
[2018-12-08] MEDS: valACYclovir 500 MG TABLET. PO SCH ×3 (11:04→23:18)
--- NOTE | 2018-12-08 11:11 | PDOC ---
Infectious Disease Note Subjective: Subjective Patient continues to have generalized weakness Fever pattern and white count improving Denies any headache sore throat and runny nose nausea vomiting diarrhea abdomi nal pain or difficulty with urination Denies any hematuria, dysuria Denies any outdoor activity at [place] November 25 through November 27 ROS: ROS Negative except for above. Vital Signs: Vital Signs Vital Signs Date Time Temp Pulse Resp B/P (MAP) Pulse Ox O2 Delivery O2 Flow Rate FiO2 12/08/18 07:49 98.7 62 24 99/58 (72) 92 Room Air 98.7 12/07/18 23:42 3.0 Physical Exam: PHYSICAL EXAM CONSTITUTIONAL: Well-developed, well-nourished male, appears tired, cooperative, in no acute distress, hard of hearing. HEENT: Normocephalic, atraumatic, anicteric. No thrush. Oral mucosa moist. No oropharyngeal exudate noted. NECK: Supple. No JVD. No meningismus. LUNGS: Clear anteriorly. No rhonchi. HEART: S1, S2, no murmurs. ABDOMEN: Soft, nontender, nondistended. No rebound, no guarding. No masses felt. EXTREMITIES: No edema, no cyanosis, no clubbing, no calf tenderness. NEUROLOGIC: Alert, awake, hard of hearing, able to move all four extremities. DERMATOLOGIC: Warm, dry. No generalized rash. MUSCULOSKELETAL: No joint effusion. No decrease in range of motion. Medications: Inpatient Meds: Current Medications Medications (Trade) Dose Ordered Sig/[facility] Start Time Stop Time Status Last Admin Dose Admin Acetaminophen (Tylenol) 1,000 mg 1X ONCE 12/07/18 10:00 12/07/18 10:01 DC 12/07/18 10:11 1,000 MG Albuterol/ Ipratropium (Duoneb) 3 ml RTQID 12/08/18 09:30 Alprazolam (Xanax) 0.5 mg 1X ONCE 12/07/18 22:30 12/07/18 22:31 DC 12/07/18 23:23 0.5 MG Amantadine HCl (Symmetrel) 100 mg BID 12/07/18 21:00 12/07/18 20:58 100 MG Amino Acids/ Glycerin/ Electrolytes 1,000 ml @ 80 mls/hr [id number] 12/07/18 14:45 12/08/18 04:41 80 MLS/HR Carbidopa/Levodopa (Sinemet Cr) 1 tab.sa BID 12/07/18 21:00 12/07/18 20:55 1 TAB.SA Ceftriaxone Sodium (Rocephin) 1 gm 1X ONCE 12/07/18 10:00 12/07/18 10:01 DC 12/07/18 10:11 1 GM Daptomycin 550 mg/ Sodium Chloride 50 ml @ 100 mls/hr Q24H 12/07/18 13:00 12/07/18 14:18 100 MLS/HR Doxycycline Hyclate (Vibra-Tab) 100 mg BID 12/07/18 12:00 12/08/18 11:03 100 MG Enoxaparin Sodium (Lovenox 40mg Syringe) 40 mg Q24H 12/07/18 14:45 UNV Famotidine (Pepcid) 20 mg BID 12/07/18 21:00 12/08/18 11:03 20 MG Hydrocortisone (Cortef) 10 mg AFTRNOON 12/07/18 17:30 Info (CONTRAST GIVEN -- Rx MONITORING) 1 each PRN DAILY PRN 12/07/18 10:00 12/09/18 09:59 Iohexol (Omnipaque 350 Mg/ml) 100 ml STK-MED ONCE 12/07/18 14:54 12/07/18 14:55 DC Levothyroxine Sodium (Synthroid) 88 mcg DAILYAC 12/08/18 07:30 Piperacillin Sod/ Tazobactam Sod 3.375 gm/Sodium Chloride 50 ml @ 100 mls/hr Q6HRS 12/07/18 12:00 12/08/18 05:22 100 MLS/HR Sodium Chloride 1,000 ml @ 1,000 mls/hr Q1H 12/07/18 15:15 12/07/18 16:14 DC 12/07/18 15:15 1,000 MLS/HR Tamsulosin HCl (Flomax) 0.4 mg QHS 12/07/18 21:00 12/07/18 20:55 0.4 MG Valacyclovir HCl (Valtrex) 1,000 mg TID 12/07/18 15:00 12/08/18 11:04 1,000 MG Vancomycin HCl 1.25 gm/Sodium Chloride 250 ml @ 166.667 mls/hr 1X ONCE 12/07/18 12:30 12/07/18 13:59 Cancel Labs: Lab Laboratory Tests Test 12/08/18 04:30 12/08/18 05:22 White Blood Count 16.5 x10^3/uL (4.0-11.0) Red Blood Count 4.08 x10^6/uL (4.30-5.70) Hemoglobin 13.4 g/dL (13.0-17.5) Hematocrit 40.9 % (39.0-53.0) Mean Corpuscular Volume 100 fL (79-100) Mean Corpuscular Hemoglobin 33 pg (25-35) Mean Corpuscular Hemoglobin Concent 33 g/dL (31-37) Red Cell Distribution Width 14.8 % (11.5-14.5) Platelet Count 174 x10^3/uL (140-400) Neutrophils (%) (Auto) 79 % (31-73) Lymphocytes (%) (Auto) 9 % (24-48) Monocytes (%) (Auto) 11 % (0-9) Eosinophils (%) (Auto) 0 % (0-3) Basophils (%) (Auto) 0 % (0-3) Neutrophils # (Auto) 13.0 x10^3uL (1.8-7.7) Lymphocytes # (Auto) 1.5 x10^3/uL (1.0-4.8) Monocytes # (Auto) 1.9 x10^3/uL (0.0-1.1) Eosinophils # (Auto) 0.1 x10^3/uL (0.0-0.7) Basophils # (Auto) 0.0 x10^3/uL (0.0-0.2) Sodium Level 134 mmol/L (136-145) Potassium Level 3.7 mmol/L (3.5-5.1) Chloride Level 98 mmol/L (98-107) Carbon Dioxide Level 27 mmol/L (21-32) Anion Gap 9 (6-14) Blood Urea Nitrogen 24 mg/dL (8-26) Creatinine 1.4 mg/dL (0.7-1.3) Estimated GFR (Cockcroft-Gault) 48.6 BUN/Creatinine Ratio 17 (6-20) Glucose Level 116 mg/dL (70-99) Calcium Level 8.8 mg/dL (8.5-10.1) Total Bilirubin 1.1 mg/dL (0.2-1.0) Aspartate Amino Transf (AST/SGOT) 12 U/L (15-37) Alanine Aminotransferase (ALT/SGPT) 7 U/L (16-63) Alkaline Phosphatase 35 U/L (46-116) Total Protein 6.0 g/dL (6.4-8.2) Albumin 2.5 g/dL (3.4-5.0) Albumin/Globulin Ratio 0.7 (1.0-1.7) Triglycerides Level 80 mg/dL (0-150) Cholesterol Level 115 mg/dL (0-200) LDL Cholesterol, Calculated 37 mg/dL (0-100) VLDL Cholesterol, Calculated 16 mg/dL (0-40) Non-HDL Cholesterol Calculated 53 mg/dL (0-129) HDL Cholesterol 62 mg/dL (40-60) Cholesterol/HDL Ratio 1.9 Amylase Level 53 U/L (25-115) Lipase 176 U/L (73-393) Influenza Type A Antigen Negative (NEGATIVE) Influenza Type B Antigen Negative (NEGATIVE) Objective: Assessment: Fever etiology unclear pattern improving Is nonrevealing so far,could be viral in etiology Leucocytosis Cough, SOB,Chestpain , CTA negative Pancreatitis on CT without any associated symptoms H/O sinus surgeries Generalized weakness immunosuppression on steroids Parkinson's disease Hematuria likely catheter related as patient did not have any hematuria or dysuria or difficulty passing urine prior to admission Plan: Plan of Care Zosyn, doxycycline,daptomycin f/u labs F/U C/S cont supportive care D/W family at bedside D/W ALLIE BOWMAN MD December 08, 2018 11:11
[2018-12-08 11:18] VITALS: BP 99/58
--- NOTE | 2018-12-08 11:25 | CARD ---
MR#: [id number] Date of Study: 12/08/2018 Ordering Physician: Misael PINEDA, Referring Physician: Misael PINEDA, Fatoumata: Nida Gonzalez APPROVED REPORT EXAM: Two-dimensional and M-mode echocardiogram with Doppler and color Doppler. Other Information Quality : AverageHR: 72bpm Technically limited study due to body habitus. INDICATION Palpitations Dyspnea RISK FACTORS Hypertension 2D DIMENSIONS Left Atrium(2D)3.3 (1.6-4.0cm)IVSd1.2 (0.7-1.1cm) Aortic Root(2D)3.5 (2.0-3.7cm)LVDd5.4 (3.9-5.9cm) LVOT Diameter2.2 (1.8-2.4cm)PWd1.2 (0.7-1.1cm) LVDs2.9 (2.5-4.0cm)FS (%) 46.3 % SV109.6 mlLVEF(%)77.2 (>50%) Aortic Valve AoV Peak Mundo.152.0cm/sAoV VTI37.8cm AO Peak GR.9.2mmHgLVOT VTI 17.74cm AO Mean GR.9mmHg Mitral Valve MV E Fktkvxtx82.5cm/sMV DECEL PXUO707ml MV A Rzcypnoy22.6cm/sE/A Ratio0.8 TDI Lateral E' P. V8.95cm/sMedial E' P. V9.33cm/s E/Lateral E'7.7E/Medial E'7.3 Tricuspid Valve TR P. Uddktcdz563dm/sRAP [id number] TR Peak Gr.28klEzEDSN42kxEo Pulmonary Vein S1 Xatljvms56.6cm/sS2 Owewllvk92.09cm/s D2 Ysdzamyb82.1cm/sPVa paxqqtwf883jwsv LEFT VENTRICLE The left ventricle is normal size. There is borderline to mild concentric left ventricular hypertroph y. The left ventricular systolic function is normal and the ejection fraction is within normal range. The Ejection Fraction is 50-55%. Wall motion consistent with conduction abnormality. Otherwise, marty sly normal. Not well visualized. Transmitral Doppler flow pattern is Grade I-abnormal relaxation romero andree. RIGHT VENTRICLE The right ventricle is mildly dilated. There is normal right ventricular wall thickness. The right ve ntricular systolic function is normal. ATRIA The left atrium size is normal. The right atrium size is normal. The interatrial septum is intact wit h no evidence for an atrial septal defect or patent foramen ovale as noted on 2-D or Doppler imaging. AORTIC VALVE The aortic valve is thickened but opens well. Doppler and Color Flow revealed no significant aortic r egurgitation. There is no significant aortic valvular stenosis. MITRAL VALVE The mitral valve is normal in structure and function. There is no evidence of mitral valve prolapse. There is no mitral valve stenosis. Doppler and Color Flow revealed no mitral valve regurgitation note d. TRICUSPID VALVE The tricuspid valve is normal in structure and function. Doppler and Color Flow revealed no tricuspid valve regurgitation noted with an estimated PAP of 33 mmHg. There is no tricuspid valve stenosis. PULMONIC VALVE The pulmonic valve is not well visualized. Doppler and Color Flow revealed no pulmonic valvular regur gitation. GREAT VESSELS The aortic root is normal in size. The IVC is dilated and collapses >50% with inspiration. PERICARDIAL EFFUSION There is no evidence of significant pericardial effusion. Critical Notification Critical Value: No <Conclusion> The left ventricular systolic function is normal and the ejection fraction is within normal range. Th e Ejection Fraction is 50-55%. Wall motion consistent with conduction abnormality. Otherwise, grossly normal. Not well visualized. Technically limited study Signed by : Robert Wilburn, Electronically Approved : 12/08/2018 11:25:36
--- NOTE | 2018-12-08 11:41 | PDOC ---
Subjective: Subjective: D/w pt's - tolerating diet, no abd pain. Objective: Objective: Tmax 99.9 Reviewed w/ RN - no GI concerns, tolerating regular diet, didn't sleep well last night so has been resting today. Vital Signs: Vital Signs Date Time Temp Pulse Resp B/P (MAP) Pulse Ox O2 Delivery O2 Flow Rate FiO2 12/08/18 11:18 98.7 62 24 99/58 (72) 92 Room Air 98.7 12/07/18 23:42 3.0 Labs: Laboratory Tests Test 12/08/18 04:30 12/08/18 05:22 White Blood Count 16.5 x10^3/uL Red Blood Count 4.08 x10^6/uL Hemoglobin 13.4 g/dL Hematocrit 40.9 % Mean Corpuscular Volume 100 fL Mean Corpuscular Hemoglobin 33 pg Mean Corpuscular Hemoglobin Concent 33 g/dL Red Cell Distribution Width 14.8 % Platelet Count 174 x10^3/uL Neutrophils (%) (Auto) 79 % Lymphocytes (%) (Auto) 9 % Monocytes (%) (Auto) 11 % Eosinophils (%) (Auto) 0 % Basophils (%) (Auto) 0 % Neutrophils # (Auto) 13.0 x10^3uL Lymphocytes # (Auto) 1.5 x10^3/uL Monocytes # (Auto) 1.9 x10^3/uL Eosinophils # (Auto) 0.1 x10^3/uL Basophils # (Auto) 0.0 x10^3/uL Sodium Level 134 mmol/L Potassium Level 3.7 mmol/L Chloride Level 98 mmol/L Carbon Dioxide Level 27 mmol/L Anion Gap 9 Blood Urea Nitrogen 24 mg/dL Creatinine 1.4 mg/dL Estimated GFR (Cockcroft-Gault) 48.6 BUN/Creatinine Ratio 17 Glucose Level 116 mg/dL Calcium Level 8.8 mg/dL Total Bilirubin 1.1 mg/dL Aspartate Amino Transf (AST/SGOT) 12 U/L Alanine Aminotransferase (ALT/SGPT) 7 U/L Alkaline Phosphatase 35 U/L Total Protein 6.0 g/dL Albumin 2.5 g/dL Albumin/Globulin Ratio 0.7 Triglycerides Level 80 mg/dL Cholesterol Level 115 mg/dL LDL Cholesterol, Calculated 37 mg/dL VLDL Cholesterol, Calculated 16 mg/dL Non-HDL Cholesterol Calculated 53 mg/dL HDL Cholesterol 62 mg/dL Cholesterol/HDL Ratio 1.9 Amylase Level 53 U/L Lipase 176 U/L Influenza Type A Antigen Negative Influenza Type B Antigen Negative BLOOD CULTURE Preliminary NO GROWTH AFTER 1 DAY Imaging: Abd US 12/07 IMPRESSION: 1. No gallbladder abnormality is detected. 2. Multiple hepatic cysts. 3. Obscuration of the pancreas by overlying bowel. CXR 12/08 pending PE: GEN: NAD LUNGS: CPAP HEART: RRR ABD: NABS, S/ND/NT NEURO/PSYCH: sleeping A/P: Fever, leukocytosis - better Mildly elevated amylase and lipase - resolved, normal GB and hepatic cysts on US Abnormal CT - LUQ inflammatory changes at level of the pancreatic tail and proximal descending colon extending into the left anterior pararenal space -- Continues without any GI symptoms. Will return later w/ Dr. Trevino. AKI PETERS December 08, 2018 11:41
[2018-12-08] MEDS: ENOXAPARIN 40 MG/0.4 ML SYRINGE. SQ SCH ×3 (11:42→17:58)
[2018-12-08] MEDS: IPRATRPIUM/ALBUTEROL 0.5/2.5MG 3 ML NEBU. NEB SCH ×3 (11:45→21:10)
--- NOTE | 2018-12-08 12:18 | NUR ---
Dr. Piña made rounds this morning and instructed this nurse that patient can take his own home medications (levothroxine, hydrocortisone. Sinemet not administered, the patient is on carbidopa/levodopa (Rytary) and cannot be substituted. The patient's requested that other pills administered later because the patient wanted to sleep. Famotidine, valacyclovir and doxycycline administered at about 1100.
--- NOTE | 2018-12-08 12:39 | RAD ---
Portable chest, 12/08/2018: HISTORY: Dyspnea Comparison is made to yesterday's study. The heart is enlarged. There is calcific plaquing of the aorta. There is a lesser depth of inspiration compared to yesterday's study with minimal bibasilar linear atelectasis. No pulmonary consolidation is seen. There is no evidence of pleural fluid. IMPRESSION: 1. Cardiomegaly. 2. Minimal bibasilar linear atelectasis. Electronically signed by: Dhaval Pressley MD (12/08/2018 12:36 PM) [facility]
[2018-12-08] MEDS: DAPTOmycin (GENERIC) IVPB 550 MG in IV NORMAL SALINE 50ML 50 ML IV SCH (13:18)
--- NOTE | 2018-12-08 13:58 | PDOC2 ---
ADRIANA FUENTES QUETA 12/08/18 1358: CARDIAC CONSULT DATE OF CONSULT Date of Consult DATE: 12/08/18 TIME: 13:44 REASON FOR CONSULT Reason for Consult: PVC's Couplets REFERRING PHYSICIAN Referring Physician: Dr. Guzman SOURCE Source: Chart review, Patient HISTORY OF PRESENT ILLNESS HISTORY OF PRESENT ILLNESS This is an 83 yo male who presented secondary to fevers, cough, and progressive weakness. Labs with leukocytosis, elevated amylase, lipase. Was febrile. NT Pro BNP mildly elevated, but CXR without significant fluid. Patient having frequent PVCs on telemetry, which prompted this consult. Patient denies any chest pain, palpitations, dizziness, diaphoresis, LE edema, orthopnea, or abdominal pain. Really only complaint is the weakness and some nasal congestion. reports his belly has been a little more distended within the last couple of days prior to admission. No nausea/vomiting or changes in bowel patterns. PAST MEDICAL HISTORY Past Medical History Parkinson's with DBS (follows at [facility]), pituitary adenoma, chronic sinus mucocele, hypothyroidism, BPH with urinary frequency, chronic back pain, TONYA with CPAP, diverticulosis, CKD PAST SURGICAL HISTORY Past Surgical History: Appendectomy, Other (DBS, sinus surgery) FAMILY HISTORY Family History: High Cholestrol, Hypertension SOCIAL HISTORY Smoke: No ALCOHOL: none Drugs: None Lives: with Family CURRENT MEDICATIONS CURRENT MEDICATIONS Current Medications Medications (Trade) Dose Ordered Sig/Loyd Route PRN Reason Start Time Stop Time Status Last Admin Dose Admin Amino Acids/ Glycerin/ Electrolytes 1,000 ml @ 80 mls/hr [id number] IV 12/07/18 14:45 12/08/18 04:41 Tamsulosin HCl (Flomax) 0.4 mg QHS PO 12/07/18 21:00 12/07/18 20:55 Famotidine (Pepcid) 20 mg BID PO 12/07/18 21:00 12/08/18 11:03 Valacyclovir HCl (Valtrex) 1,000 mg TID PO 12/07/18 15:00 12/08/18 11:04 Carbidopa/Levodopa (Sinemet Cr) 1 tab.sa BID PO 12/07/18 21:00 12/07/18 20:55 Amantadine HCl (Symmetrel) 100 mg BID PO 12/07/18 21:00 12/07/18 20:58 Sodium Chloride 1,000 ml @ 1,000 mls/hr Q1H IV 12/07/18 15:15 12/07/18 16:14 DC 12/07/18 15:15 Alprazolam (Xanax) 0.5 mg 1X ONCE PO 12/07/18 22:30 12/07/18 22:31 DC 12/07/18 23:23 Albuterol/ Ipratropium (Duoneb) 3 ml RTQID NEB 12/08/18 09:30 12/08/18 11:45 ALLERGIES ALLERGIES: Coded Allergies: No Known Drug Allergies (Unverified , 02/23/17) ROS Review of System 14 point ROS conducted with pertinent positives noted above in HPI. PHYSICAL EXAM General: Alert, Oriented X3, Cooperative, No acute distress HEENT: Atraumatic, Mucous membr. moist/pink Lungs: Clear to auscultation Heart: Regular rate (SR/SB with PVCs), Normal S1, Normal S2, No murmurs Abdomen: Soft, No tenderness Extremities: No edema, Normal pulses Skin: No breakdown Neuro: Normal speech, Sensation intact Psych/Mental Status: Mental status NL, Mood NL MUSCULOSKELETAL: Osteoarthritic changes both hands VITALS VITALS Vital Signs Date Time Temp Pulse Resp B/P (MAP) Pulse Ox O2 Delivery O2 Flow Rate FiO2 12/08/18 11:48 97 Nasal Cannula 4.0 12/08/18 11:18 98.7 62 24 99/58 (72) 98.7 LABS Lab: Laboratory Tests Test 12/08/18 04:30 12/08/18 05:22 White Blood Count 16.5 x10^3/uL (4.0-11.0) Red Blood Count 4.08 x10^6/uL (4.30-5.70) Hemoglobin 13.4 g/dL (13.0-17.5) Hematocrit 40.9 % (39.0-53.0) Mean Corpuscular Volume 100 fL (79-100) Mean Corpuscular Hemoglobin 33 pg (25-35) Mean Corpuscular Hemoglobin Concent 33 g/dL (31-37) Red Cell Distribution Width 14.8 % (11.5-14.5) Platelet Count 174 x10^3/uL (140-400) Neutrophils (%) (Auto) 79 % (31-73) Lymphocytes (%) (Auto) 9 % (24-48) Monocytes (%) (Auto) 11 % (0-9) Eosinophils (%) (Auto) 0 % (0-3) Basophils (%) (Auto) 0 % (0-3) Neutrophils # (Auto) 13.0 x10^3uL (1.8-7.7) Lymphocytes # (Auto) 1.5 x10^3/uL (1.0-4.8) Monocytes # (Auto) 1.9 x10^3/uL (0.0-1.1) Eosinophils # (Auto) 0.1 x10^3/uL (0.0-0.7) Basophils # (Auto) 0.0 x10^3/uL (0.0-0.2) Sodium Level 134 mmol/L (136-145) Potassium Level 3.7 mmol/L (3.5-5.1) Chloride Level 98 mmol/L (98-107) Carbon Dioxide Level 27 mmol/L (21-32) Anion Gap 9 (6-14) Blood Urea Nitrogen 24 mg/dL (8-26) Creatinine 1.4 mg/dL (0.7-1.3) Estimated GFR (Cockcroft-Gault) 48.6 BUN/Creatinine Ratio 17 (6-20) Glucose Level 116 mg/dL (70-99) Calcium Level 8.8 mg/dL (8.5-10.1) Total Bilirubin 1.1 mg/dL (0.2-1.0) Aspartate Amino Transf (AST/SGOT) 12 U/L (15-37) Alanine Aminotransferase (ALT/SGPT) 7 U/L (16-63) Alkaline Phosphatase 35 U/L (46-116) Total Protein 6.0 g/dL (6.4-8.2) Albumin 2.5 g/dL (3.4-5.0) Albumin/Globulin Ratio 0.7 (1.0-1.7) Triglycerides Level 80 mg/dL (0-150) Cholesterol Level 115 mg/dL (0-200) LDL Cholesterol, Calculated 37 mg/dL (0-100) VLDL Cholesterol, Calculated 16 mg/dL (0-40) Non-HDL Cholesterol Calculated 53 mg/dL (0-129) HDL Cholesterol 62 mg/dL (40-60) Cholesterol/HDL Ratio 1.9 Amylase Level 53 U/L (25-115) Lipase 176 U/L (73-393) Influenza Type A Antigen Negative (NEGATIVE) Influenza Type B Antigen Negative (NEGATIVE) ECHOCARDIOGRAM ECHOCARDIOGRAM <Conclusion> The left ventricular systolic function is normal and the ejection fraction is within normal range. The Ejection Fraction is 50-55%. Wall motion consistent with conduction abnormality. Otherwise, grossly normal. Not well visualized. Technically limited study DATE: 12/08/18 1125 ASSESSMENT/PLAN ASSESSMENT/PLAN 1. PVC's. Echo showed preserved LV function with an EF of 50-55%. 2. Dyspnea; NT Pro BNP mildly elevated, but insignificant based upon age adjustment. CXR without vascular congestion 3. Leucocytosis, fevers. ? sepsis. Etiology unclear. Cultures pending 4. Elevated amylase, lipase. ? pancreatitis. 5. BPH, urinary retention. s/p Prather 6. Parkinson's s/p DBS 7. Hypothyroidism; replacement therapy. TSH 0.293 8. TONYA on CPAP 9. CKD; stable Recommendations Check Mg Unable to use BB due to mild bradycardia and hypotension Supportive care from a CV standpoint Echo with preserved LV function YUMI SERRANO MD 12/08/18 1717: CARDIAC CONSULT ASSESSMENT/PLAN ASSESSMENT/PLAN Patient seen and examined. Agree with above nurse practitioner note. 83-year-old male with multiple comorbidities as noted above who apparently had some mental status changes and weakness. Current working diagnosis is possible underlying infection. He's on broad- spectrum antibiotics. From a cardiac perspective he has preserved LV function, no significant pulmonary hypertension. Blood pressure is on the low side but patient appears to be alert and oriented today. No significant heart failure signs on examination. Supportive care. Discussed with family. ADRIANA FUENTES APRN December 08, 2018 13:58 YUMI SERRANO MD December 08, 2018 17:17
--- NOTE | 2018-12-08 14:24 | NUR ---
SW following for discharge planning. Discussed with RN, pt is from home with family. ID, GI and cardiology following pt. PT/OT pending. SW will await for PT/OT recommendation to assess skilled needs.
[2018-12-08 15:24] VITALS: BP 120/46
--- NOTE | 2018-12-08 16:34 | NUR ---
Patient has PVCs, couplets on the compliance monitor, denies chest pain. VS Bp 100/45 HR67 RR 20 O2 sat 98%. Paged attending at 1130, received orders to consult cardiology and obtain magnesium levels at 1230.
[2018-12-08 19:13] VITALS: BP 110/54
[2018-12-08] MEDS: TAMSULOSIN 0.4 MG CAP.ER.24H. PO SCH (21:00)
[2018-12-08] MEDS: RYTARY PO SCH (23:17)
[2018-12-08] MEDS: POLYETHYLENE GLYCOL 3350 17 GM PACKET. PO SCH (23:18)
[2018-12-08] MEDS: ALPRAZolam 0.5 MG TABLET PO PRN (23:27)
[2018-12-08 23:40] VITALS: BP 106/57
[2018-12-09] MEDS: AMINO AC 3%/ELECTROLYTE/GLYCER 1,000 ML IV SCH (04:15)
[2018-12-09 05:47] LABS: BASO % 0 % (0-3); EOS # 0.1 x10^3/uL (0.0-0.7); EOS % 1 % (0-3); HEMATOCRIT 38.9 % (39.0-53.0); HEMOGLOBIN 13.1 g/dL (13.0-17.5); LYMPH # 1.4 x10^3/uL (1.0-4.8); LYMPH % 12 % (24-48); MEAN CORPUSCULAR HEMOGLOBIN 34 pg (25-35); MEAN CORPUSCULAR HGB CONC 34 g/dL (31-37); MEAN CORPUSCULAR VOLUME 100 fL (79-100); MONO % 9 % (0-9); NEUT # 8.8 x10^3uL (1.8-7.7); NEUT % 78 % (31-73); PLATELET COUNT 201 x10^3/uL (140-400); RED CELL DISTRIBUTION WIDTH 14.6 % (11.5-14.5); WHITE BLOOD COUNT 11.3 x10^3/uL (4.0-11.0)
[2018-12-09 06:02] LABS: ALBUMIN 2.4 g/dL (3.4-5.0); ALBUMIN/GLOBULIN RATIO 0.6 (1.0-1.7); CALCIUM 8.9 mg/dL (8.5-10.1); CREATININE 1.3 mg/dL (0.7-1.3); POTASSIUM 3.5 mmol/L (3.5-5.1); TOTAL BILIRUBIN 0.5 mg/dL (0.2-1.0); TOTAL PROTEIN 6.2 g/dL (6.4-8.2)
[2018-12-09] MEDS: PIPERACILLIN/TAZOBACTAM 3.375 GM in IV NORMAL SALINE 50ML 50 ML IV SCH ×4 (06:12→23:48)
[2018-12-09 07:00] VITALS: BP 113/54
[2018-12-09] MEDS: RYTARY PO SCH ×5 (08:00→22:53)
[2018-12-09] MEDS: IPRATRPIUM/ALBUTEROL 0.5/2.5MG 3 ML NEBU. NEB SCH ×4 (08:01→20:43)
[2018-12-09] MEDS: LEVOTHYROXINE 88 MCG TABLET PO SCH (08:06)
[2018-12-09] MEDS: POLYETHYLENE GLYCOL 3350 17 GM PACKET. PO SCH (09:00)
[2018-12-09] MEDS ORDERED: traMADol 50 MG TABLET PO PRN (09:15)
[2018-12-09] MEDS ORDERED: AMANTADINE HCL 100 MG CAPSULE PO PRN (09:15)
--- NOTE | 2018-12-09 09:20 | PDOC ---
Infectious Disease Note Subjective: Subjective DR Piña feels much better today no f/c/n/v/d/abdo pain/cough/headache/ sore throat /runny nose /nausea /vomiting/ diarrhea /abdominal pain or difficulty with urination Denies any hematuria, dysuria ROS: ROS Negative except for above. Vital Signs: Vital Signs Vital Signs Date Time Temp Pulse Resp B/P (MAP) Pulse Ox O2 Delivery O2 Flow Rate FiO2 12/09/18 08:04 98 Nasal Cannula 4.0 12/09/18 07:00 97.9 53 18 113/54 (73) 97.9 Physical Exam: PHYSICAL EXAM CONSTITUTIONAL: Well-developed, well-nourished male, sitting in chair cooperative, in no acute distress, hard of hearing. HEENT: Normocephalic, atraumatic, anicteric. No thrush. Oral mucosa moist. No oropharyngeal exudate noted. NECK: Supple. No JVD. No meningismus. LUNGS: Clear anteriorly. No rhonchi. HEART: S1, S2, no murmurs. ABDOMEN: Soft, nontender, nondistended. No rebound, no guarding. No masses felt. EXTREMITIES: No edema, no cyanosis, no clubbing, no calf tenderness. NEUROLOGIC: Alert, awake, hard of hearing, able to move all four extremities. DERMATOLOGIC: Warm, dry. No generalized rash. MUSCULOSKELETAL: No joint effusion. No decrease in range of motion. Medications: Inpatient Meds: Current Medications Medications (Trade) Dose Ordered Sig/Loyd Start Time Stop Time Status Last Admin Dose Admin Acetaminophen (Tylenol) 1,000 mg 1X ONCE 12/07/18 10:00 12/07/18 10:01 DC 12/07/18 10:11 1,000 MG Albuterol/ Ipratropium (Duoneb) 3 ml RTQID 12/08/18 09:30 12/09/18 08:01 3 ML Alprazolam (Xanax) 0.5 mg PRN QHS PRN 12/08/18 22:30 12/08/18 23:27 0.5 MG Amantadine HCl (Symmetrel) 100 mg PRN BID PRN 12/09/18 09:15 Amino Acids/ Glycerin/ Electrolytes 1,000 ml @ 80 mls/hr [id number] 12/07/18 14:45 12/09/18 09:09 DC 12/08/18 23:14 80 MLS/HR Carbidopa/Levodopa (Sinemet Cr) 1 tab.sa BID 12/07/18 21:00 12/09/18 09:09 DC 12/07/18 20:55 1 TAB.SA Ceftriaxone Sodium (Rocephin) 1 gm 1X ONCE 12/07/18 10:00 12/07/18 10:01 DC 12/07/18 10:11 1 GM Daptomycin 550 mg/ Sodium Chloride 50 ml @ 100 mls/hr Q24H 12/07/18 13:00 12/08/18 13:18 100 MLS/HR Doxycycline Hyclate (Vibra-Tab) 100 mg BID 12/07/18 12:00 12/08/18 23:18 100 MG Enoxaparin Sodium (Lovenox 40mg Syringe) 40 mg Q24H 12/07/18 14:45 UNV Famotidine (Pepcid) 20 mg BID 12/07/18 21:00 12/08/18 23:18 20 MG Hydrocortisone (Cortef) 10 mg AFTRNOON 12/07/18 17:30 Info (CONTRAST GIVEN -- Rx MONITORING) 1 each PRN DAILY PRN 12/07/18 10:00 12/09/18 09:59 Iohexol (Omnipaque 350 Mg/ml) 100 ml STK-MED ONCE 12/07/18 14:54 12/07/18 14:55 DC Levothyroxine Sodium (Synthroid) 88 mcg DAILYAC 12/08/18 07:30 12/09/18 08:06 88 MCG Non-Formulary Medication 1 ea HS 12/08/18 22:30 12/09/18 08:11 1 EA Piperacillin Sod/ Tazobactam Sod 3.375 gm/Sodium Chloride 50 ml @ 100 mls/hr Q6HRS 12/07/18 12:00 12/09/18 06:12 100 MLS/HR Polyethylene Glycol (miraLAX PACKET) 17 gm DAILY 12/08/18 20:00 12/08/18 23:18 17 GM Sodium Chloride 1,000 ml @ 1,000 mls/hr Q1H 12/07/18 15:15 12/07/18 16:14 DC 12/07/18 15:15 1,000 MLS/HR Tamsulosin HCl (Flomax) 0.4 mg QHS 12/07/18 21:00 12/08/18 21:00 0.4 MG Tramadol HCl (Ultram) 50 mg PRN Q6HRS PRN 12/09/18 09:15 Valacyclovir HCl (Valtrex) 1,000 mg TID 12/07/18 15:00 12/08/18 23:18 1,000 MG Vancomycin HCl 1.25 gm/Sodium Chloride 250 ml @ 166.667 mls/hr 1X ONCE 12/07/18 12:30 12/07/18 13:59 Cancel Labs: Lab Laboratory Tests Test 12/09/18 04:35 White Blood Count 11.3 x10^3/uL (4.0-11.0) Red Blood Count 3.90 x10^6/uL (4.30-5.70) Hemoglobin 13.1 g/dL (13.0-17.5) Hematocrit 38.9 % (39.0-53.0) Mean Corpuscular Volume 100 fL (79-100) Mean Corpuscular Hemoglobin 34 pg (25-35) Mean Corpuscular Hemoglobin Concent 34 g/dL (31-37) Red Cell Distribution Width 14.6 % (11.5-14.5) Platelet Count 201 x10^3/uL (140-400) Neutrophils (%) (Auto) 78 % (31-73) Lymphocytes (%) (Auto) 12 % (24-48) Monocytes (%) (Auto) 9 % (0-9) Eosinophils (%) (Auto) 1 % (0-3) Basophils (%) (Auto) 0 % (0-3) Neutrophils # (Auto) 8.8 x10^3uL (1.8-7.7) Lymphocytes # (Auto) 1.4 x10^3/uL (1.0-4.8) Monocytes # (Auto) 1.0 x10^3/uL (0.0-1.1) Eosinophils # (Auto) 0.1 x10^3/uL (0.0-0.7) Basophils # (Auto) 0.0 x10^3/uL (0.0-0.2) Sodium Level 139 mmol/L (136-145) Potassium Level 3.5 mmol/L (3.5-5.1) Chloride Level 104 mmol/L (98-107) Carbon Dioxide Level 27 mmol/L (21-32) Anion Gap 8 (6-14) Blood Urea Nitrogen 19 mg/dL (8-26) Creatinine 1.3 mg/dL (0.7-1.3) Estimated GFR (Cockcroft-Gault) 53.0 BUN/Creatinine Ratio 15 (6-20) Glucose Level 120 mg/dL (70-99) Calcium Level 8.9 mg/dL (8.5-10.1) Total Bilirubin 0.5 mg/dL (0.2-1.0) Aspartate Amino Transf (AST/SGOT) 11 U/L (15-37) Alanine Aminotransferase (ALT/SGPT) 11 U/L (16-63) Alkaline Phosphatase 38 U/L (46-116) Total Protein 6.2 g/dL (6.4-8.2) Albumin 2.4 g/dL (3.4-5.0) Albumin/Globulin Ratio 0.6 (1.0-1.7) Lipase 136 U/L (73-393) Objective: Assessment: Fever etiology unclear resolved Cults nonrevealing so far Leucocytosis improving Cough, SOB,Chestpain , CTA negative Pancreatitis on CT without any associated symptoms H/O sinus surgeries Generalized weakness immunosuppression on steroids Parkinson's disease Hematuria likely catheter related as patient did not have any hematuria or dysuria or difficulty passing urine prior to admission Plan: Plan of Care Zosyn, doxycycline, DC daptomycin f/u labs F/U C/S cont supportive care D/W family at bedside D/W Dr Piña D/W ALLIE BOWMAN MD December 09, 2018 09:20
--- NOTE | 2018-12-09 09:28 | PDOC ---
Subjective: Subjective: Feeling better. Tolerating PO, no abd pain, has stooled. Family wonders about any need to repeat CT. Objective: Vital Signs: Vital Signs Date Time Temp Pulse Resp B/P (MAP) Pulse Ox O2 Delivery O2 Flow Rate FiO2 12/09/18 08:04 98 Nasal Cannula 4.0 12/09/18 07:00 97.9 53 18 113/54 (73) 97.9 Labs: Laboratory Tests Test 12/09/18 04:35 White Blood Count 11.3 x10^3/uL Red Blood Count 3.90 x10^6/uL Hemoglobin 13.1 g/dL Hematocrit 38.9 % Mean Corpuscular Volume 100 fL Mean Corpuscular Hemoglobin 34 pg Mean Corpuscular Hemoglobin Concent 34 g/dL Red Cell Distribution Width 14.6 % Platelet Count 201 x10^3/uL Neutrophils (%) (Auto) 78 % Lymphocytes (%) (Auto) 12 % Monocytes (%) (Auto) 9 % Eosinophils (%) (Auto) 1 % Basophils (%) (Auto) 0 % Neutrophils # (Auto) 8.8 x10^3uL Lymphocytes # (Auto) 1.4 x10^3/uL Monocytes # (Auto) 1.0 x10^3/uL Eosinophils # (Auto) 0.1 x10^3/uL Basophils # (Auto) 0.0 x10^3/uL Sodium Level 139 mmol/L Potassium Level 3.5 mmol/L Chloride Level 104 mmol/L Carbon Dioxide Level 27 mmol/L Anion Gap 8 Blood Urea Nitrogen 19 mg/dL Creatinine 1.3 mg/dL Estimated GFR (Cockcroft-Gault) 53.0 BUN/Creatinine Ratio 15 Glucose Level 120 mg/dL Calcium Level 8.9 mg/dL Total Bilirubin 0.5 mg/dL Aspartate Amino Transf (AST/SGOT) 11 U/L Alanine Aminotransferase (ALT/SGPT) 11 U/L Alkaline Phosphatase 38 U/L Total Protein 6.2 g/dL Albumin 2.4 g/dL Albumin/Globulin Ratio 0.6 Lipase 136 U/L BLOOD CULTURE Preliminary NO GROWTH AFTER 2 DAYS PE: GEN: NAD - sitting up and eating breakfast, family present - looks better today LUNGS: NC 4L HEART: RRR ABD: NABS, S/ND/NT NEURO/PSYCH: A & O 3 A/P: Fever, weakness, leukocytosis - better Abnormal CT - pancreatitis vs diverticulitis, never had abd pain -- Improving. Continue support per GI. Family asked about repeating CT re: previous findings of inflammation - will review w/ Dr. Trevino. AKI PETERS December 09, 2018 09:28
[2018-12-09] MEDS: HYDROCORTISONE 10 MG TABLET PO SCH ×2 (10:11→15:03)
[2018-12-09] MEDS: valACYclovir 500 MG TABLET. PO SCH ×3 (10:12→22:49)
[2018-12-09] MEDS: DOXYCYCLINE HYCLATE 100 MG TABLET PO SCH ×2 (10:12→22:50)
[2018-12-09] MEDS: FAMOTIDINE 20 MG TABLET. PO SCH ×2 (10:12→21:49)
[2018-12-09 11:03] VITALS: BP 109/70
--- NOTE | 2018-12-09 12:35 | PDOC ---
PULMONARY PROGRESS NOTES Subjective resting on home CPAP no fever Vitals Vital Signs Date Time Temp Pulse Resp B/P (MAP) Pulse Ox O2 Delivery O2 Flow Rate FiO2 12/09/18 11:03 98.0 72 20 109/70 (83) 98 Nasal Cannula 3.0 98.0 Lungs: Clear Cardiovascular: S1 Abdomen: Soft, Non-tender Extremities: No Edema Skin: Warm Labs Laboratory Tests Test 12/08/18 04:30 12/08/18 05:22 12/09/18 04:35 White Blood Count 16.5 x10^3/uL (4.0-11.0) 11.3 x10^3/uL (4.0-11.0) Red Blood Count 4.08 x10^6/uL (4.30-5.70) 3.90 x10^6/uL (4.30-5.70) Hemoglobin 13.4 g/dL (13.0-17.5) 13.1 g/dL (13.0-17.5) Hematocrit 40.9 % (39.0-53.0) 38.9 % (39.0-53.0) Mean Corpuscular Volume 100 fL (79-100) 100 fL (79-100) Mean Corpuscular Hemoglobin 33 pg (25-35) 34 pg (25-35) Mean Corpuscular Hemoglobin Concent 33 g/dL (31-37) 34 g/dL (31-37) Red Cell Distribution Width 14.8 % (11.5-14.5) 14.6 % (11.5-14.5) Platelet Count 174 x10^3/uL (140-400) 201 x10^3/uL (140-400) Neutrophils (%) (Auto) 79 % (31-73) 78 % (31-73) Lymphocytes (%) (Auto) 9 % (24-48) 12 % (24-48) Monocytes (%) (Auto) 11 % (0-9) 9 % (0-9) Eosinophils (%) (Auto) 0 % (0-3) 1 % (0-3) Basophils (%) (Auto) 0 % (0-3) 0 % (0-3) Neutrophils # (Auto) 13.0 x10^3uL (1.8-7.7) 8.8 x10^3uL (1.8-7.7) Lymphocytes # (Auto) 1.5 x10^3/uL (1.0-4.8) 1.4 x10^3/uL (1.0-4.8) Monocytes # (Auto) 1.9 x10^3/uL (0.0-1.1) 1.0 x10^3/uL (0.0-1.1) Eosinophils # (Auto) 0.1 x10^3/uL (0.0-0.7) 0.1 x10^3/uL (0.0-0.7) Basophils # (Auto) 0.0 x10^3/uL (0.0-0.2) 0.0 x10^3/uL (0.0-0.2) Sodium Level 134 mmol/L (136-145) 139 mmol/L (136-145) Potassium Level 3.7 mmol/L (3.5-5.1) 3.5 mmol/L (3.5-5.1) Chloride Level 98 mmol/L (98-107) 104 mmol/L (98-107) Carbon Dioxide Level 27 mmol/L (21-32) 27 mmol/L (21-32) Anion Gap 9 (6-14) 8 (6-14) Blood Urea Nitrogen 24 mg/dL (8-26) 19 mg/dL (8-26) Creatinine 1.4 mg/dL (0.7-1.3) 1.3 mg/dL (0.7-1.3) Estimated GFR (Cockcroft-Gault) 48.6 53.0 BUN/Creatinine Ratio 17 (6-20) 15 (6-20) Glucose Level 116 mg/dL (70-99) 120 mg/dL (70-99) Calcium Level 8.8 mg/dL (8.5-10.1) 8.9 mg/dL (8.5-10.1) Magnesium Level 2.4 mg/dL (1.8-2.4) Total Bilirubin 1.1 mg/dL (0.2-1.0) 0.5 mg/dL (0.2-1.0) Aspartate Amino Transf (AST/SGOT) 12 U/L (15-37) 11 U/L (15-37) Alanine Aminotransferase (ALT/SGPT) 7 U/L (16-63) 11 U/L (16-63) Alkaline Phosphatase 35 U/L (46-116) 38 U/L (46-116) Total Protein 6.0 g/dL (6.4-8.2) 6.2 g/dL (6.4-8.2) Albumin 2.5 g/dL (3.4-5.0) 2.4 g/dL (3.4-5.0) Albumin/Globulin Ratio 0.7 (1.0-1.7) 0.6 (1.0-1.7) Triglycerides Level 80 mg/dL (0-150) Cholesterol Level 115 mg/dL (0-200) LDL Cholesterol, Calculated 37 mg/dL (0-100) VLDL Cholesterol, Calculated 16 mg/dL (0-40) Non-HDL Cholesterol Calculated 53 mg/dL (0-129) HDL Cholesterol 62 mg/dL (40-60) Cholesterol/HDL Ratio 1.9 Amylase Level 53 U/L (25-115) Lipase 176 U/L (73-393) 136 U/L (73-393) Influenza Type A Antigen Negative (NEGATIVE) Influenza Type B Antigen Negative (NEGATIVE) Laboratory Tests Test 12/09/18 04:35 White Blood Count 11.3 x10^3/uL (4.0-11.0) Red Blood Count 3.90 x10^6/uL (4.30-5.70) Hemoglobin 13.1 g/dL (13.0-17.5) Hematocrit 38.9 % (39.0-53.0) Mean Corpuscular Volume 100 fL (79-100) Mean Corpuscular Hemoglobin 34 pg (25-35) Mean Corpuscular Hemoglobin Concent 34 g/dL (31-37) Red Cell Distribution Width 14.6 % (11.5-14.5) Platelet Count 201 x10^3/uL (140-400) Neutrophils (%) (Auto) 78 % (31-73) Lymphocytes (%) (Auto) 12 % (24-48) Monocytes (%) (Auto) 9 % (0-9) Eosinophils (%) (Auto) 1 % (0-3) Basophils (%) (Auto) 0 % (0-3) Neutrophils # (Auto) 8.8 x10^3uL (1.8-7.7) Lymphocytes # (Auto) 1.4 x10^3/uL (1.0-4.8) Monocytes # (Auto) 1.0 x10^3/uL (0.0-1.1) Eosinophils # (Auto) 0.1 x10^3/uL (0.0-0.7) Basophils # (Auto) 0.0 x10^3/uL (0.0-0.2) Sodium Level 139 mmol/L (136-145) Potassium Level 3.5 mmol/L (3.5-5.1) Chloride Level 104 mmol/L (98-107) Carbon Dioxide Level 27 mmol/L (21-32) Anion Gap 8 (6-14) Blood Urea Nitrogen 19 mg/dL (8-26) Creatinine 1.3 mg/dL (0.7-1.3) Estimated GFR (Cockcroft-Gault) 53.0 BUN/Creatinine Ratio 15 (6-20) Glucose Level 120 mg/dL (70-99) Calcium Level 8.9 mg/dL (8.5-10.1) Total Bilirubin 0.5 mg/dL (0.2-1.0) Aspartate Amino Transf (AST/SGOT) 11 U/L (15-37) Alanine Aminotransferase (ALT/SGPT) 11 U/L (16-63) Alkaline Phosphatase 38 U/L (46-116) Total Protein 6.2 g/dL (6.4-8.2) Albumin 2.4 g/dL (3.4-5.0) Albumin/Globulin Ratio 0.6 (1.0-1.7) Lipase 136 U/L (73-393) Medications Active Scripts Medications Dose Route/Sig Max Daily Dose Days Date Category Rimantadine Hcl 100 Mg Tablet 100 Mg PO 12/07/18 Reported Amitriptyline Hcl 10 Mg Tablet 10 Mg PO DAILY 12/07/18 Reported Valacyclovir (Valacyclovir Hcl) 1,000 Mg Tablet 1 Tab PO TID 12/07/18 Reported Tylenol With Codeine #3 Tablet (Acetaminophen/Codeine Phosphate) 1 Each Tablet 1 Tab PO PRN Q6HRS PRN 12/07/18 Reported Modafinil 100 Mg Tablet 100 Mg PO 12/07/18 Reported Ranitidine Hcl 150 Mg Capsule 1 Cap PO BID 5/29/19 Reported Synthroid (Levothyroxine Sodium) 88 Mcg Tablet 88 Mcg PO DAILYAC 12/07/18 Reported Valsartan-Hctz 80-12.5 Mg Tab (Valsartan/Hydrochlorothiazide) 1 Each Tablet 1 Each PO DAILY 12/07/18 Reported Rytary ER 36.25 mg-145 mg Cap (Carbidopa/Levodopa) 1 Each Capsule.er 1 Each PO 12/07/18 Reported Cortef (Hydrocortisone) 10 Mg Tablet 10 Mg PO 12/07/18 Reported Impression . 1. Dyspnea with acute hypoxic respiratory failure secondary to sepsis. 2. Sepsis. The source is not so obvious. There is no definite consolidation seen on the chest CT. Likely pancreatitis (Lipase, amlyase elevated). ct sinuses, abd/pelvis reviewed 3. Immunocompromised status. Now comes in with sepsis and high grade fever. 4. Long history of alcoholism. Need to rule out alcoholic pancreatitis. 5. Mildly elevated bilirubin. 6. TONYA Plan . 1. Discussed with the patient's in detail. 2. Broad-spectrum antibiotics. 3. Follow all cultures. so far neg 4. Nasal swab for influenza neg 5. CT head and sinuses.reviewed 6. CT abdomen and pelvis reviewed 7. Elevated amylase and lipase. Now normalized. Follow GI rec 8. No evidence of pulmonary embolism and no focus of infection in the lungs by CT chest. 9. home CPAP qhs d/w IFRAH MCFARLANE MD December 09, 2018 12:35
--- NOTE | 2018-12-09 12:58 | PDOC ---
PROGRESS NOTES Subjective Up in chair this am for breakfast, ate well, alert, stronger, recalls ambulance to ER but not initial part of hospitalization, afebrile, labs better, urinating ok without Prather, his chronic back pain may have overridden any initial GI pain, sleeping with CPAP, echo shows cardiomegaly but normal EF Objective Afebrile General: A&O Heart: RRR Lungs: clear Abd: less distended, non tender, normal bowel sounds Ext: no C/C/E or tremor WBC: 11.3 Hgb: 13.1 K+: 3.5 Creat: 1,3 Vital Signs Vital Signs Date Time Temp Pulse Resp B/P (MAP) Pulse Ox O2 Delivery O2 Flow Rate FiO2 12/09/18 11:03 98.0 72 20 109/70 (83) 98 Nasal Cannula 3.0 98.0 I & O Intake and Output 12/09/18 06:59 Intake Total 736 ml Output Total 1100 ml Balance -364 ml Intake Oral 736 ml IV Total 0 ml Output Urine Total 1100 ml # Voids 2 Assessment and Plan Problems Medical Problems: (1) Dyspnea Status: Acute (2) Fever Status: Acute (3) Parkinsons disease Status: Acute (4) Weakness Status: Acute dyspnea from abdominal distension - resolved,- CTA chest showed some atelectasis, added neb tx, IS, checked echo which was normal (cardiomegaly), Pulm following, cardiology following acute pancreatitis - labs now normal after bowel rest, no evidence of gallstones or hypertriglyceridemia, GI consulted, tolerating diet, but Albumin decreased possible diverticulitis - continue Zosyn sepsis - awaiting cultures, ID consult, IV abx, IVF BPH with LUTS - Urology consulted and Prather suggested byt not placed, has a l arge prostate on imaging with bladder wall thickening consistent with chronic obstructive uropathy, tamsulosin started Parkinson's - his PO medications dose not available here, getting dose from home, PT/OT Protein malnutrition - now eating so discontinue ProcalAmine Hypothyroidism - cont home dose TONYA - CPAP from home hx of pituitary adenoma - continue Cortef, may need IV due to stress CKD stage 3 - stable Arlene PINEDA MD December 09, 2018 12:58
[2018-12-09 15:00] VITALS: BP 106/56
[2018-12-09] MEDS: ENOXAPARIN 40 MG/0.4 ML SYRINGE. SQ SCH (15:08)
--- NOTE | 2018-12-09 16:06 | NUR ---
[facility] following pt. PT/OT recommends SNU. SW spoke with pt and family in room and pt reported he wants to go to [facility] upon dc. HARRISON phoned and faxed referral. Pt admission and acceptance pending. RN notified. Will continue to follow.
[2018-12-09 19:00] VITALS: BP 105/52
--- NOTE | 2018-12-09 19:34 | NUR ---
Patient took Rytary(bedtime dose in the morning) per patient request, notified Dr. Guzman, said it was OK. Patient was likewise transferred to [facility], report given to Kendy MARIE at 1925.
[2018-12-09] MEDS: TAMSULOSIN 0.4 MG CAP.ER.24H. PO SCH (21:49)
[2018-12-09 23:00] VITALS: BP 116/56
[2018-12-09] MEDS: ALPRAZolam 0.5 MG TABLET PO PRN (23:46)
[2018-12-10] VITALS (7 sets, daily range): BP systolic 107–138; BP diastolic 46–78
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
[2018-12-10 05:05] LABS: BASO % 0 % (0-3); EOS # 0.2 x10^3/uL (0.0-0.7); EOS % 3 % (0-3); HEMATOCRIT 36.2 % (39.0-53.0); HEMOGLOBIN 12.3 g/dL (13.0-17.5); LYMPH # 1.5 x10^3/uL (1.0-4.8); LYMPH % 19 % (24-48); MEAN CORPUSCULAR HEMOGLOBIN 34 pg (25-35); MEAN CORPUSCULAR HGB CONC 34 g/dL (31-37); MEAN CORPUSCULAR VOLUME 100 fL (79-100); MONO # 0.8 x10^3/uL (0.0-1.1); MONO % 10 % (0-9); NEUT # 5.7 x10^3uL (1.8-7.7); NEUT % 69 % (31-73); PLATELET COUNT 215 x10^3/uL (140-400); RED BLOOD COUNT 3.64 x10^6/uL (4.30-5.70); RED CELL DISTRIBUTION WIDTH 14.5 % (11.5-14.5); WHITE BLOOD COUNT 8.3 x10^3/uL (4.0-11.0)
[2018-12-10 05:40] LABS: ALBUMIN 2.5 g/dL (3.4-5.0); ALBUMIN/GLOBULIN RATIO 0.7 (1.0-1.7); CALCIUM 8.8 mg/dL (8.5-10.1); CREATININE 1.2 mg/dL (0.7-1.3); GFR 58.1; POTASSIUM 3.7 mmol/L (3.5-5.1); TOTAL BILIRUBIN 0.4 mg/dL (0.2-1.0); TOTAL PROTEIN 6.2 g/dL (6.4-8.2)
[2018-12-10] MEDS: PIPERACILLIN/TAZOBACTAM 3.375 GM in IV NORMAL SALINE 50ML 50 ML IV SCH ×3 (06:15→17:44)
[2018-12-10] MEDS: IPRATRPIUM/ALBUTEROL 0.5/2.5MG 3 ML NEBU. NEB SCH ×4 (08:00→21:08)
[2018-12-10] MEDS: LEVOTHYROXINE 88 MCG TABLET PO SCH (08:06)
[2018-12-10] MEDS: RYTARY PO SCH ×2 (08:07→15:30)
[2018-12-10] MEDS: POLYETHYLENE GLYCOL 3350 17 GM PACKET. PO SCH (09:00)
[2018-12-10] MEDS: DOXYCYCLINE HYCLATE 100 MG TABLET PO SCH (09:21)
[2018-12-10] MEDS: FAMOTIDINE 20 MG TABLET. PO SCH ×2 (09:21→21:22)
[2018-12-10] MEDS: HYDROCORTISONE 10 MG TABLET PO SCH ×3 (09:22→15:30)
[2018-12-10] MEDS: valACYclovir 500 MG TABLET. PO SCH ×3 (09:44→21:22)
--- NOTE | 2018-12-10 10:37 | PDOC ---
PROGRESS NOTES Subjective Subjective He feels better this AM but had almost had a fall last night during transfers with his assisting him,with wires from TV control in his way. He c/o low back pain with radiation to his left lower extremity while up walking. Objective Objective Vital Signs Date Time Temp Pulse Resp B/P (MAP) Pulse Ox O2 Delivery O2 Flow Rate FiO2 12/10/18 07:00 97.3 62 18 127/63 (84) 93 Room Air 97.3 12/09/18 11:03 3.0 Intake and Output 12/10/18 07:00 Intake Total 700 ml Output Total 201 ml Balance 499 ml Intake Oral 700 ml Output Urine Total 201 ml # Voids 2 # Bowel Movements 1 Physical Exam Physical Exam He is alert and comfortable and he got up from bedside recliner by himself but almost lost balance getting up,leaning backwards and he did walk with roller walker under supervision and he is having radicular pain while up walking. He had tenderness to palpation over left sacroiliac joint and left trochanteric bursa. SLR test is negative bilaterally and he had pain free ROM of his lower extremity joints and he had 5/5 grade muscle strength in his lower extremity muscles.He gets tired easily. He is voiding well. Assessment Assessment Problems Medical Problems: (1) Dyspnea Status: Acute (2) Fever Status: Acute (3) Parkinsons disease Status: Acute (4) Weakness Status: Acute Plan Plan of Care To continue present physical and occupational therapy follow up as tolerated and to consider injecting painful left sacroiliac joint and trochanteric bursa if his pain is limiting his activity. To SNF when medically stable,hopefully on 12/12/2018. Comment Review of Relevant I have reviewed the following items amy (where applicable) has been applied. Labs Laboratory Tests Test 12/09/18 04:35 12/10/18 04:05 12/10/18 04:35 White Blood Count 11.3 x10^3/uL (4.0-11.0) 8.3 x10^3/uL (4.0-11.0) Red Blood Count 3.90 x10^6/uL (4.30-5.70) 3.64 x10^6/uL (4.30-5.70) Hemoglobin 13.1 g/dL (13.0-17.5) 12.3 g/dL (13.0-17.5) Hematocrit 38.9 % (39.0-53.0) 36.2 % (39.0-53.0) Mean Corpuscular Volume 100 fL (79-100) 100 fL (79-100) Mean Corpuscular Hemoglobin 34 pg (25-35) 34 pg (25-35) Mean Corpuscular Hemoglobin Concent 34 g/dL (31-37) 34 g/dL (31-37) Red Cell Distribution Width 14.6 % (11.5-14.5) 14.5 % (11.5-14.5) Platelet Count 201 x10^3/uL (140-400) 215 x10^3/uL (140-400) Neutrophils (%) (Auto) 78 % (31-73) 69 % (31-73) Lymphocytes (%) (Auto) 12 % (24-48) 19 % (24-48) Monocytes (%) (Auto) 9 % (0-9) 10 % (0-9) Eosinophils (%) (Auto) 1 % (0-3) 3 % (0-3) Basophils (%) (Auto) 0 % (0-3) 0 % (0-3) Neutrophils # (Auto) 8.8 x10^3uL (1.8-7.7) 5.7 x10^3uL (1.8-7.7) Lymphocytes # (Auto) 1.4 x10^3/uL (1.0-4.8) 1.5 x10^3/uL (1.0-4.8) Monocytes # (Auto) 1.0 x10^3/uL (0.0-1.1) 0.8 x10^3/uL (0.0-1.1) Eosinophils # (Auto) 0.1 x10^3/uL (0.0-0.7) 0.2 x10^3/uL (0.0-0.7) Basophils # (Auto) 0.0 x10^3/uL (0.0-0.2) 0.0 x10^3/uL (0.0-0.2) Sodium Level 139 mmol/L (136-145) 140 mmol/L (136-145) Potassium Level 3.5 mmol/L (3.5-5.1) 3.7 mmol/L (3.5-5.1) Chloride Level 104 mmol/L (98-107) 105 mmol/L (98-107) Carbon Dioxide Level 27 mmol/L (21-32) 25 mmol/L (21-32) Anion Gap 8 (6-14) 10 (6-14) Blood Urea Nitrogen 19 mg/dL (8-26) 17 mg/dL (8-26) Creatinine 1.3 mg/dL (0.7-1.3) 1.2 mg/dL (0.7-1.3) Estimated GFR (Cockcroft-Gault) 53.0 58.1 BUN/Creatinine Ratio 15 (6-20) 14 (6-20) Glucose Level 120 mg/dL (70-99) 102 mg/dL (70-99) Calcium Level 8.9 mg/dL (8.5-10.1) 8.8 mg/dL (8.5-10.1) Total Bilirubin 0.5 mg/dL (0.2-1.0) 0.4 mg/dL (0.2-1.0) Aspartate Amino Transf (AST/SGOT) 11 U/L (15-37) 15 U/L (15-37) Alanine Aminotransferase (ALT/SGPT) 11 U/L (16-63) 8 U/L (16-63) Alkaline Phosphatase 38 U/L (46-116) 37 U/L (46-116) Total Protein 6.2 g/dL (6.4-8.2) 6.2 g/dL (6.4-8.2) Albumin 2.4 g/dL (3.4-5.0) 2.5 g/dL (3.4-5.0) Albumin/Globulin Ratio 0.6 (1.0-1.7) 0.7 (1.0-1.7) Lipase 136 U/L (73-393) Laboratory Tests Test 12/10/18 04:05 12/10/18 04:35 White Blood Count 8.3 x10^3/uL (4.0-11.0) Red Blood Count 3.64 x10^6/uL (4.30-5.70) Hemoglobin 12.3 g/dL (13.0-17.5) Hematocrit 36.2 % (39.0-53.0) Mean Corpuscular Volume 100 fL (79-100) Mean Corpuscular Hemoglobin 34 pg (25-35) Mean Corpuscular Hemoglobin Concent 34 g/dL (31-37) Red Cell Distribution Width 14.5 % (11.5-14.5) Platelet Count 215 x10^3/uL (140-400) Neutrophils (%) (Auto) 69 % (31-73) Lymphocytes (%) (Auto) 19 % (24-48) Monocytes (%) (Auto) 10 % (0-9) Eosinophils (%) (Auto) 3 % (0-3) Basophils (%) (Auto) 0 % (0-3) Neutrophils # (Auto) 5.7 x10^3uL (1.8-7.7) Lymphocytes # (Auto) 1.5 x10^3/uL (1.0-4.8) Monocytes # (Auto) 0.8 x10^3/uL (0.0-1.1) Eosinophils # (Auto) 0.2 x10^3/uL (0.0-0.7) Basophils # (Auto) 0.0 x10^3/uL (0.0-0.2) Sodium Level 140 mmol/L (136-145) Potassium Level 3.7 mmol/L (3.5-5.1) Chloride Level 105 mmol/L (98-107) Carbon Dioxide Level 25 mmol/L (21-32) Anion Gap 10 (6-14) Blood Urea Nitrogen 17 mg/dL (8-26) Creatinine 1.2 mg/dL (0.7-1.3) Estimated GFR (Cockcroft-Gault) 58.1 BUN/Creatinine Ratio 14 (6-20) Glucose Level 102 mg/dL (70-99) Calcium Level 8.8 mg/dL (8.5-10.1) Total Bilirubin 0.4 mg/dL (0.2-1.0) Aspartate Amino Transf (AST/SGOT) 15 U/L (15-37) Alanine Aminotransferase (ALT/SGPT) 8 U/L (16-63) Alkaline Phosphatase 37 U/L (46-116) Total Protein 6.2 g/dL (6.4-8.2) Albumin 2.5 g/dL (3.4-5.0) Albumin/Globulin Ratio 0.7 (1.0-1.7) Microbiology 12/07/18 Blood Culture - Preliminary, Resulted NO GROWTH AFTER 3 DAYS Medications Current Medications Sodium Chloride 1,000 ml @ 125 mls/hr Q8H IV Last administered on 12/07/18at 08:20; Start 12/07/18 at 08:20; Stop 12/07/18 at 16:19; Status DC Ceftriaxone Sodium (Rocephin) 1 gm 1X ONCE IVP Last administered on 12/07/18at 10:11; Start 12/07/18 at 10:00; Stop 12/07/18 at 10:01; Status DC Iohexol (Omnipaque 350 Mg/ml) 90 ml 1X ONCE IV Last administered on 12/07/18at 10:38; Start 12/07/18 at 10:00; Stop 12/07/18 at 10:01; Status DC Info (CONTRAST GIVEN -- Rx MONITORING) 1 each PRN DAILY PRN MC SEE COMMENTS; Start 12/07/18 at 10:00; Stop 12/09/18 at 09:59; Status DC Acetaminophen (Tylenol) 1,000 mg 1X ONCE PO Last administered on 12/07/18at 10:11; Start 12/07/18 at 10:00; Stop 12/07/18 at 10:01; Status DC Piperacillin Sod/ Tazobactam Sod 3.375 gm/Sodium Chloride 50 ml @ 100 mls/hr Q6HRS IV Last administered on 12/10/18at 06:15; Start 12/07/18 at 12:00 Doxycycline Hyclate (Vibra-Tab) 100 mg BID PO Last administered on 12/10/18at 09:21; Start 12/07/18 at 12:00 Enoxaparin Sodium (Lovenox 40mg Syringe) 40 mg Q24H SQ Last administered on 12/09/18at 15:08; Start 12/07/18 at 12:00 Vancomycin HCl 1.25 gm/Sodium Chloride 250 ml @ 166.667 mls/hr 1X ONCE IV ; Start 12/07/18 at 12:30; Stop 12/07/18 at 13:59; Status Cancel Daptomycin 550 mg/ Sodium Chloride 50 ml @ 100 mls/hr Q24H IV Last administered on 12/08/18at 13:18; Start 12/07/18 at 13:00; Stop 12/09/18 at 09:56; Status DC Amino Acids/ Glycerin/ Electrolytes 1,000 ml @ 80 mls/hr [id number] IV Last admi nistered on 12/08/18at 23:14; Start 12/07/18 at 14:45; Stop 12/09/18 at 09:09; Status DC Tamsulosin HCl (Flomax) 0.4 mg QHS PO Last administered on 12/09/18 21:49; Start 12/07/18 at 21:00 Enoxaparin Sodium (Lovenox 40mg Syringe) 40 mg Q24H SQ ; Start 12/07/18 at 14:45; Status UNV Iohexol (Omnipaque 350 Mg/ml) 100 ml STK-MED ONCE .ROUTE ; Start 12/07/18 at 14:54; Stop 12/07/18 at 14:55; Status DC Levothyroxine Sodium (Synthroid) 88 mcg DAILYAC PO Last administered on 12/10/18at 08:06; Start 12/08/18 at 07:30 Famotidine (Pepcid) 20 mg BID PO Last administered on 12/10/18 09:21; Start 12/07/18 at 21:00 Valacyclovir HCl (Valtrex) 1,000 mg TID PO Last administered on 12/10/18 09:44; Start 12/07/18 at 15:00 Carbidopa/Levodopa (Sinemet Cr) 1 tab.sa BID PO Last administered on 12/07/18 20:55; Start 12/07/18 at 21:00; Stop 12/09/18 at 09:09; Status DC Hydrocortisone (Cortef) 10 mg [id number] PO ; Start 12/08/18 at 08:00; Status Cancel Amantadine HCl (Symmetrel) 100 mg BID PO Last administered on 12/07/18at 20:58; Start 12/07/18 at 21:00; Stop 12/09/18 at 09:09; Status DC Sodium Chloride 1,000 ml @ 1,000 mls/hr Q1H IV Last administered on 12/07/18 15:15; Start 12/07/18 at 15:15; Stop 12/07/18 at 16:14; Status DC Hydrocortisone (Cortef) 15 mg DAILY08 PO Last administered on 12/10/18 09:22; Start 12/08/18 at 08:00 Hydrocortisone (Cortef) 10 mg AFTRNOON PO Last administered on 12/09/18at 15:03; Start 12/07/18 at 17:30 Alprazolam (Xanax) 0.5 mg 1X ONCE PO Last administered on 12/07/18 23:23; Start 12/07/18 at 22:30; Stop 12/07/18 at 22:31; Status DC Albuterol/ Ipratropium (Duoneb) 3 ml RTQID NEB Last administered on 12/09/18 20:43; Start 12/08/18 at 09:30 Polyethylene Glycol (miraLAX PACKET) 17 gm DAILY PO Last administered on 12/08/18at 23:18; Start 12/08/18 at 20:00 Non-Formulary Medication 2 ea DAILY@1500 PO Last administered on 12/09/18at 15:02; Start 12/09/18 at 15:00 Non-Formulary Medication 2 ea DAILY08 PO Last administered on 12/10/18 08:07; Start 12/09/18 at 08:00 Non-Formulary Medication 1 ea HS PO Last administered on 12/09/18at 22:53; Start 12/08/18 at 22:30 Alprazolam (Xanax) 0.5 mg PRN QHS PRN PO ANXIETY / AGITATION Last administered on 12/09/18at 23:46; Start 12/08/18 at 22:30 Amantadine HCl (Symmetrel) 100 mg PRN BID PRN PO tremor; Start 12/09/18 at 09:15 Tramadol HCl (Ultram) 50 mg PRN Q6HRS PRN PO PAIN; Start 12/09/18 at 09:15 Active Scripts Active Reported Amitriptyline Hcl 10 Mg Tablet 10 Mg PO DAILY Valacyclovir (Valacyclovir Hcl) 1,000 Mg Tablet 1 Tab PO TID Tylenol With Codeine #3 Tablet (Acetaminophen/Codeine Phosphate) 1 Each Tablet 1 Tab PO PRN Q6HRS PRN Modafinil 100 Mg Tablet 100 Mg PO Ranitidine Hcl 150 Mg Capsule 1 Cap PO BID Synthroid (Levothyroxine Sodium) 88 Mcg Tablet 88 Mcg PO DAILYAC Valsartan-Hctz 80-12.5 Mg Tab (Valsartan/Hydrochlorothiazide) 1 Each Tablet 1 Each PO DAILY Rytary ER 36.25 mg-145 mg Cap (Carbidopa/Levodopa) 1 Each Capsule.er 1 Each PO Cortef (Hydrocortisone) 10 Mg Tablet 10 Mg PO Vitals/I & O Vital Sign - Last 24 Hours 12/09/18 12/09/18 12/09/18 12/09/18 11:03 15:00 16:07 19:00 Temp 98.0 98.0 97.9 98.0 98.0 97.9 Pulse 72 63 65 Resp 20 18 18 B/P (MAP) 109/70 (83) 106/56 (73) 105/52 (69) Pulse Ox 98 96 97 97 O2 Delivery Nasal Cannula Room Air Room Air Room Air O2 Flow Rate 3.0 12/09/18 12/09/18 12/09/18 12/10/18 20:15 20:48 23:00 00:30 Temp 97.4 97.9 97.4 97.9 Pulse 60 58 Resp 18 18 B/P (MAP) 116/56 (76) 107/46 (66) Pulse Ox 99 97 95 O2 Delivery Room Air Room Air Room Air Room Air 12/10/18 12/10/18 02:57 07:00 Temp 97.9 97.3 97.9 97.3 Pulse 55 62 Resp 18 18 B/P (MAP) 133/67 (89) 127/63 (84) Pulse Ox 99 93 O2 Delivery Room Air Room Air Intake and Output 12/09/18 12/09/18 12/10/18 15:00 23:00 07:00 Intake Total 500 ml 200 ml Output Total 1 ml 200 ml Balance 499 ml 0 ml YVETTE SCALES MD Dec 10, 2018 10:37
--- NOTE | 2018-12-10 11:11 | PDOC ---
PULMONARY PROGRESS NOTES Subjective no soa, fully awake no fever Vitals Vital Signs Date Time Temp Pulse Resp B/P (MAP) Pulse Ox O2 Delivery O2 Flow Rate FiO2 12/10/18 11:03 100 Room Air 12/10/18 07:00 97.3 62 18 127/63 (84) 97.3 12/09/18 11:03 3.0 General: Alert, No acute distress Lungs: Clear Cardiovascular: S1 Abdomen: Soft, Non-tender Extremities: No Edema Skin: Warm Labs Laboratory Tests Test 12/09/18 04:35 12/10/18 04:05 12/10/18 04:35 White Blood Count 11.3 x10^3/uL (4.0-11.0) 8.3 x10^3/uL (4.0-11.0) Red Blood Count 3.90 x10^6/uL (4.30-5.70) 3.64 x10^6/uL (4.30-5.70) Hemoglobin 13.1 g/dL (13.0-17.5) 12.3 g/dL (13.0-17.5) Hematocrit 38.9 % (39.0-53.0) 36.2 % (39.0-53.0) Mean Corpuscular Volume 100 fL (79-100) 100 fL (79-100) Mean Corpuscular Hemoglobin 34 pg (25-35) 34 pg (25-35) Mean Corpuscular Hemoglobin Concent 34 g/dL (31-37) 34 g/dL (31-37) Red Cell Distribution Width 14.6 % (11.5-14.5) 14.5 % (11.5-14.5) Platelet Count 201 x10^3/uL (140-400) 215 x10^3/uL (140-400) Neutrophils (%) (Auto) 78 % (31-73) 69 % (31-73) Lymphocytes (%) (Auto) 12 % (24-48) 19 % (24-48) Monocytes (%) (Auto) 9 % (0-9) 10 % (0-9) Eosinophils (%) (Auto) 1 % (0-3) 3 % (0-3) Basophils (%) (Auto) 0 % (0-3) 0 % (0-3) Neutrophils # (Auto) 8.8 x10^3uL (1.8-7.7) 5.7 x10^3uL (1.8-7.7) Lymphocytes # (Auto) 1.4 x10^3/uL (1.0-4.8) 1.5 x10^3/uL (1.0-4.8) Monocytes # (Auto) 1.0 x10^3/uL (0.0-1.1) 0.8 x10^3/uL (0.0-1.1) Eosinophils # (Auto) 0.1 x10^3/uL (0.0-0.7) 0.2 x10^3/uL (0.0-0.7) Basophils # (Auto) 0.0 x10^3/uL (0.0-0.2) 0.0 x10^3/uL (0.0-0.2) Sodium Level 139 mmol/L (136-145) 140 mmol/L (136-145) Potassium Level 3.5 mmol/L (3.5-5.1) 3.7 mmol/L (3.5-5.1) Chloride Level 104 mmol/L (98-107) 105 mmol/L (98-107) Carbon Dioxide Level 27 mmol/L (21-32) 25 mmol/L (21-32) Anion Gap 8 (6-14) 10 (6-14) Blood Urea Nitrogen 19 mg/dL (8-26) 17 mg/dL (8-26) Creatinine 1.3 mg/dL (0.7-1.3) 1.2 mg/dL (0.7-1.3) Estimated GFR (Cockcroft-Gault) 53.0 58.1 BUN/Creatinine Ratio 15 (6-20) 14 (6-20) Glucose Level 120 mg/dL (70-99) 102 mg/dL (70-99) Calcium Level 8.9 mg/dL (8.5-10.1) 8.8 mg/dL (8.5-10.1) Total Bilirubin 0.5 mg/dL (0.2-1.0) 0.4 mg/dL (0.2-1.0) Aspartate Amino Transf (AST/SGOT) 11 U/L (15-37) 15 U/L (15-37) Alanine Aminotransferase (ALT/SGPT) 11 U/L (16-63) 8 U/L (16-63) Alkaline Phosphatase 38 U/L (46-116) 37 U/L (46-116) Total Protein 6.2 g/dL (6.4-8.2) 6.2 g/dL (6.4-8.2) Albumin 2.4 g/dL (3.4-5.0) 2.5 g/dL (3.4-5.0) Albumin/Globulin Ratio 0.6 (1.0-1.7) 0.7 (1.0-1.7) Lipase 136 U/L (73-393) Laboratory Tests Test 12/10/18 04:05 12/10/18 04:35 White Blood Count 8.3 x10^3/uL (4.0-11.0) Red Blood Count 3.64 x10^6/uL (4.30-5.70) Hemoglobin 12.3 g/dL (13.0-17.5) Hematocrit 36.2 % (39.0-53.0) Mean Corpuscular Volume 100 fL (79-100) Mean Corpuscular Hemoglobin 34 pg (25-35) Mean Corpuscular Hemoglobin Concent 34 g/dL (31-37) Red Cell Distribution Width 14.5 % (11.5-14.5) Platelet Count 215 x10^3/uL (140-400) Neutrophils (%) (Auto) 69 % (31-73) Lymphocytes (%) (Auto) 19 % (24-48) Monocytes (%) (Auto) 10 % (0-9) Eosinophils (%) (Auto) 3 % (0-3) Basophils (%) (Auto) 0 % (0-3) Neutrophils # (Auto) 5.7 x10^3uL (1.8-7.7) Lymphocytes # (Auto) 1.5 x10^3/uL (1.0-4.8) Monocytes # (Auto) 0.8 x10^3/uL (0.0-1.1) Eosinophils # (Auto) 0.2 x10^3/uL (0.0-0.7) Basophils # (Auto) 0.0 x10^3/uL (0.0-0.2) Sodium Level 140 mmol/L (136-145) Potassium Level 3.7 mmol/L (3.5-5.1) Chloride Level 105 mmol/L (98-107) Carbon Dioxide Level 25 mmol/L (21-32) Anion Gap 10 (6-14) Blood Urea Nitrogen 17 mg/dL (8-26) Creatinine 1.2 mg/dL (0.7-1.3) Estimated GFR (Cockcroft-Gault) 58.1 BUN/Creatinine Ratio 14 (6-20) Glucose Level 102 mg/dL (70-99) Calcium Level 8.8 mg/dL (8.5-10.1) Total Bilirubin 0.4 mg/dL (0.2-1.0) Aspartate Amino Transf (AST/SGOT) 15 U/L (15-37) Alanine Aminotransferase (ALT/SGPT) 8 U/L (16-63) Alkaline Phosphatase 37 U/L (46-116) Total Protein 6.2 g/dL (6.4-8.2) Albumin 2.5 g/dL (3.4-5.0) Albumin/Globulin Ratio 0.7 (1.0-1.7) Medications Active Scripts Medications Dose Route/Sig Max Daily Dose Days Date Category Rimantadine Hcl 100 Mg Tablet 100 Mg PO 12/07/18 Reported Amitriptyline Hcl 10 Mg Tablet 10 Mg PO DAILY 12/07/18 Reported Valacyclovir (Valacyclovir Hcl) 1,000 Mg Tablet 1 Tab PO TID 12/07/18 Reported Tylenol With Codeine #3 Tablet (Acetaminophen/Codeine Phosphate) 1 Each Tablet 1 Tab PO PRN Q6HRS PRN 12/07/18 Reported Modafinil 100 Mg Tablet 100 Mg PO 12/07/18 Reported Ranitidine Hcl 150 Mg Capsule 1 Cap PO BID 12/07/18 Reported Synthroid (Levothyroxine Sodium) 88 Mcg Tablet 88 Mcg PO DAILYAC 12/07/18 Reported Valsartan-Hctz 80-12.5 Mg Tab (Valsartan/Hydrochlorothiazide) 1 Each Tablet 1 Each PO DAILY 12/07/18 Reported Rytary ER 36.25 mg-145 mg Cap (Carbidopa/Levodopa) 1 Each Capsule.er 1 Each PO 12/07/18 Reported Cortef (Hydrocortisone) 10 Mg Tablet 10 Mg PO 5/29/19 Reported Impression . 1. Dyspnea with acute hypoxic respiratory failure secondary to sepsis. 2. Sepsis. The source is not so obvious. There is no definite consolidation seen on the chest CT. Likely pancreatitis (Lipase, amlyase elevated). ct sinuses, abd/pelvis reviewed 3. Immunocompromised status. Now comes in with sepsis and high grade fever. 4. Long history of alcoholism. Need to rule out alcoholic pancreatitis. 5. Mildly elevated bilirubin. 6. TONYA Plan . 1. Discussed with the patient's in detail. 2. Broad-spectrum antibiotics. 3. Follow all cultures. so far neg 4. Nasal swab for influenza neg 5. CT head and sinuses.reviewed 6. CT abdomen and pelvis reviewed 7. Elevated amylase and lipase. Now normalized. Follow GI rec 8. No evidence of pulmonary embolism and no focus of infection in the lungs by CT chest. 9. home CPAP qhs d/w skill Wednesday IFRAH MCFARLANE MD Dec 10, 2018 11:10
--- NOTE | 2018-12-10 11:59 | PDOC ---
SUBJECTIVE Subjective Pt states that he is feeling better. Still having weakness but feels that it is improving. Had a "soft fall" last night trying to go from his chair to his bed. Denies any current pain. OBJECTIVE Vital Signs Vital Signs Date Time Temp Pulse Resp B/P (MAP) Pulse Ox O2 Delivery O2 Flow Rate FiO2 12/10/18 11:03 100 Room Air 12/10/18 11:00 97.6 66 20 129/78 (95) 96 Room Air 97.6 12/10/18 08:00 Room Air 12/10/18 07:00 97.3 62 18 127/63 (84) 93 Room Air 97.3 12/10/18 02:57 97.9 55 18 133/67 (89) 99 Room Air 97.9 12/10/18 00:30 97.9 58 18 107/46 (66) 95 Room Air 97.9 12/09/18 23:00 97.4 60 18 116/56 (76) 97 Room Air 97.4 12/09/18 20:48 99 Room Air 12/09/18 20:15 Room Air 12/09/18 19:00 97.9 65 18 105/52 (69) 97 Room Air 97.9 12/09/18 16:07 97 Room Air 12/09/18 15:00 98.0 63 18 106/56 (73) 96 Room Air 98.0 I & O Intake and Output 12/10/18 07:00 Intake Total 700 ml Output Total 201 ml Balance 499 ml Intake Oral 700 ml Output Urine Total 201 ml # Voids 2 # Bowel Movements 1 PHYSICAL EXAM Physical Exam GEN: NAD, AOx3 HEENT: MMM, EOMI, no scleral icterus/injection Cardiac: distant heart tones, RRR, no M/R/G Lungs: CTAB, regular breathing rate and effort Abd: mildly distended, soft, NTTP Ext: no erythema/edema LE bilaterally ASSESSMENT/PLAN Assessment/Plan Pt is a 83yo male admitted for weakness 1)Weakness- improving. Will likely need SNF on discharge 2)Leukocytosis and fever- resolved. ID following. Pt currently receiving Doxycycline and Zosyn 3)acute pancreatitis - labs now normal after bowel rest, no evidence of gallstones or hypertriglyceridemia, GI consulted, tolerating diet, but Albumin decreased 4)possible diverticulitis - continue Zosyn 5)BPH with LUTS - Urology consulted and Prather suggested byt not placed, has a large prostate on imaging with bladder wall thickening consistent with chronic obstructive uropathy, tamsulosin started 6)Parkinson's - his PO medications dose not available here, getting dose from home, PT/OT 7)Protein malnutrition - was on procalamine for a portion of hospitalization, eating well now 8)Hypothyroidism - cont home dose 9)TONYA - CPAP from home 10)hx of pituitary adenoma - continue Cortef, may need IV due to stress 11)CKD stage 3 - stable COMMENT Lab Laboratory Tests Test 12/10/18 04:05 12/10/18 04:35 White Blood Count 8.3 x10^3/uL (4.0-11.0) Red Blood Count 3.64 x10^6/uL (4.30-5.70) Hemoglobin 12.3 g/dL (13.0-17.5) Hematocrit 36.2 % (39.0-53.0) Mean Corpuscular Volume 100 fL (79-100) Mean Corpuscular Hemoglobin 34 pg (25-35) Mean Corpuscular Hemoglobin Concent 34 g/dL (31-37) Red Cell Distribution Width 14.5 % (11.5-14.5) Platelet Count 215 x10^3/uL (140-400) Neutrophils (%) (Auto) 69 % (31-73) Lymphocytes (%) (Auto) 19 % (24-48) Monocytes (%) (Auto) 10 % (0-9) Eosinophils (%) (Auto) 3 % (0-3) Basophils (%) (Auto) 0 % (0-3) Neutrophils # (Auto) 5.7 x10^3uL (1.8-7.7) Lymphocytes # (Auto) 1.5 x10^3/uL (1.0-4.8) Monocytes # (Auto) 0.8 x10^3/uL (0.0-1.1) Eosinophils # (Auto) 0.2 x10^3/uL (0.0-0.7) Basophils # (Auto) 0.0 x10^3/uL (0.0-0.2) Sodium Level 140 mmol/L (136-145) Potassium Level 3.7 mmol/L (3.5-5.1) Chloride Level 105 mmol/L (98-107) Carbon Dioxide Level 25 mmol/L (21-32) Anion Gap 10 (6-14) Blood Urea Nitrogen 17 mg/dL (8-26) Creatinine 1.2 mg/dL (0.7-1.3) Estimated GFR (Cockcroft-Gault) 58.1 BUN/Creatinine Ratio 14 (6-20) Glucose Level 102 mg/dL (70-99) Calcium Level 8.8 mg/dL (8.5-10.1) Total Bilirubin 0.4 mg/dL (0.2-1.0) Aspartate Amino Transf (AST/SGOT) 15 U/L (15-37) Alanine Aminotransferase (ALT/SGPT) 8 U/L (16-63) Alkaline Phosphatase 37 U/L (46-116) Total Protein 6.2 g/dL (6.4-8.2) Albumin 2.5 g/dL (3.4-5.0) Albumin/Globulin Ratio 0.7 (1.0-1.7) FATIMAH CACERES MD Dec 10, 2018 11:59
[2018-12-10] MEDS: ENOXAPARIN 40 MG/0.4 ML SYRINGE. SQ SCH (12:16)
--- NOTE | 2018-12-10 13:30 | PDOC ---
Infectious Disease Note Subjective Subjective Feeling alright, better except walking not so good Denies F/C/N/V/DSOA Vital Sign Vital Signs Vital Signs Date Time Temp Pulse Resp B/P (MAP) Pulse Ox O2 Delivery O2 Flow Rate FiO2 12/10/18 11:03 100 Room Air 12/10/18 11:00 97.6 66 20 129/78 (95) 97.6 12/09/18 11:03 3.0 Physical Exam PHYSICAL EXAM GENERAL: Sitting in the chair, alert, NAD HEENT: Oral mucosa moist. NECK: Supple. LUNGS: Clear anteriorly. No rhonchi. HEART: S1, S2 ABDOMEN: Soft and nontender EXTREMITIES: No edema, no cyanosis NEUROLOGIC: Alert, responding appropriately DERMATOLOGIC: Warm, dry. No generalized rash. Labs Lab Laboratory Tests Test 12/10/18 04:05 12/10/18 04:35 White Blood Count 8.3 x10^3/uL (4.0-11.0) Red Blood Count 3.64 x10^6/uL (4.30-5.70) Hemoglobin 12.3 g/dL (13.0-17.5) Hematocrit 36.2 % (39.0-53.0) Mean Corpuscular Volume 100 fL (79-100) Mean Corpuscular Hemoglobin 34 pg (25-35) Mean Corpuscular Hemoglobin Concent 34 g/dL (31-37) Red Cell Distribution Width 14.5 % (11.5-14.5) Platelet Count 215 x10^3/uL (140-400) Neutrophils (%) (Auto) 69 % (31-73) Lymphocytes (%) (Auto) 19 % (24-48) Monocytes (%) (Auto) 10 % (0-9) Eosinophils (%) (Auto) 3 % (0-3) Basophils (%) (Auto) 0 % (0-3) Neutrophils # (Auto) 5.7 x10^3uL (1.8-7.7) Lymphocytes # (Auto) 1.5 x10^3/uL (1.0-4.8) Monocytes # (Auto) 0.8 x10^3/uL (0.0-1.1) Eosinophils # (Auto) 0.2 x10^3/uL (0.0-0.7) Basophils # (Auto) 0.0 x10^3/uL (0.0-0.2) Sodium Level 140 mmol/L (136-145) Potassium Level 3.7 mmol/L (3.5-5.1) Chloride Level 105 mmol/L (98-107) Carbon Dioxide Level 25 mmol/L (21-32) Anion Gap 10 (6-14) Blood Urea Nitrogen 17 mg/dL (8-26) Creatinine 1.2 mg/dL (0.7-1.3) Estimated GFR (Cockcroft-Gault) 58.1 BUN/Creatinine Ratio 14 (6-20) Glucose Level 102 mg/dL (70-99) Calcium Level 8.8 mg/dL (8.5-10.1) Total Bilirubin 0.4 mg/dL (0.2-1.0) Aspartate Amino Transf (AST/SGOT) 15 U/L (15-37) Alanine Aminotransferase (ALT/SGPT) 8 U/L (16-63) Alkaline Phosphatase 37 U/L (46-116) Total Protein 6.2 g/dL (6.4-8.2) Albumin 2.5 g/dL (3.4-5.0) Albumin/Globulin Ratio 0.7 (1.0-1.7) Micro Microbiology 12/07/18 Blood Culture - Preliminary, Resulted NO GROWTH AFTER 3 DAYS Objective Assessment Fever etiology unclear resolved. cultures neg Leucocytosis improved Cough, SOB,Chest pain. CTA negative. better Pancreatitis on CT without any associated symptoms H/O sinus surgeries Generalized weakness Immunosuppression on steroids Parkinson's disease Hematuria likely catheter related as patient did not have any hematuria or dysuria or difficulty passing urine prior to admission CKD Plan Plan of Care Cont Zosyn D/c doxycycline Off daptomycin Valtrex per primary cont supportive care Weakness bryan/LLE per PMR D/w family Attending Co-Sign Attending Co-Sign The patient was seen and interviewed as well as examined at the bedside. The chart was reviewed. The case was discussed. Agree with the plan of care. AGNIESZKA DELGADO APRN Dec 10, 2018 13:29 DEYVI CUNNINGHAM MD Dec 10, 2018 17:19
[2018-12-10] MEDS: TAMSULOSIN 0.4 MG CAP.ER.24H. PO SCH (21:22)
[2018-12-10] MEDS ORDERED: RYTARY PO ONE (21:30)
[2018-12-10] MEDS: ALPRAZolam 0.5 MG TABLET PO PRN (22:32)
[2018-12-11] MEDS: PIPERACILLIN/TAZOBACTAM 3.375 GM in IV NORMAL SALINE 50ML 50 ML IV SCH ×5 (00:01→23:22)
[2018-12-11 07:00] VITALS: BP 139/44
[2018-12-11] MEDS: LEVOTHYROXINE 88 MCG TABLET PO SCH (07:23)
[2018-12-11] MEDS: HYDROCORTISONE 10 MG TABLET PO SCH ×2 (07:24→15:33)
[2018-12-11] MEDS: RYTARY PO SCH ×3 (07:24→21:18)
[2018-12-11] MEDS: IPRATRPIUM/ALBUTEROL 0.5/2.5MG 3 ML NEBU. NEB SCH ×4 (07:31→19:40)
[2018-12-11] MEDS: FAMOTIDINE 20 MG TABLET. PO SCH ×2 (08:41→20:45)
[2018-12-11] MEDS: valACYclovir 500 MG TABLET. PO SCH ×3 (08:41→20:45)
[2018-12-11] MEDS: POLYETHYLENE GLYCOL 3350 17 GM PACKET. PO SCH (08:45)
--- NOTE | 2018-12-11 10:39 | PDOC ---
SUBJECTIVE Subjective Pt initially sleeping this morning. Denies any specific complaints or needing anything this morning OBJECTIVE Vital Signs Vital Signs Date Time Temp Pulse Resp B/P (MAP) Pulse Ox O2 Delivery O2 Flow Rate FiO2 12/11/18 08:00 Room Air 12/11/18 07:31 98 Room Air 12/11/18 07:00 62 139/44 (75) 96 Room Air 12/10/18 23:03 97.7 59 20 138/54 (82) 98 Room Air 97.7 12/10/18 21:09 96 Room Air 12/10/18 19:00 97.8 59 20 134/62 (86) 98 Room Air 97.8 12/10/18 15:42 100 Room Air 12/10/18 15:00 97.4 55 18 133/69 (90) 97 BiPAP/CPAP 3.0 97.4 12/10/18 11:03 100 Room Air 12/10/18 11:00 97.6 66 20 129/78 (95) 96 Room Air 97.6 I & O Intake and Output 12/11/18 06:59 Intake Total 200 ml Output Total 1400 ml Balance -1200 ml IV Total 200 ml Output Urine Total 1400 ml # Voids 3 # Bowel Movements 3 PHYSICAL EXAM Physical Exam GEN: NAD, AOx3 HEENT: MMM, EOMI, no scleral icterus/injection Cardiac: RRR, no M/R/G Lungs: CTAB, regular breathing rate and effort Abd: mildly distended, soft, NTTP Ext: no erythema/edema LE bilaterally ASSESSMENT/PLAN Assessment/Plan Pt is a 83yo male admitted for weakness 1)Weakness- improving. Will likely need SNF on discharge 2)Leukocytosis and fever- resolved. ID following. Pt currently receiving Zosyn, Doxycycline DC'd yesterday 3)acute pancreatitis - labs now normal after bowel rest, no evidence of gallstones or hypertriglyceridemia, GI consulted, tolerating diet, but Albumin decreased 4)possible diverticulitis - continue Zosyn 5)BPH with LUTS - Urology consulted and Prather suggested byt not placed, has a large prostate on imaging with bladder wall thickening consistent with chronic obstructive uropathy, tamsulosin started 6)Parkinson's - his PO medications dose not available here, getting dose from home, PT/OT 7)Protein malnutrition - was on procalamine for a portion of hospitalization, eating well now 8)Hypothyroidism - cont home dose 9)TONYA - CPAP from home 10)hx of pituitary adenoma - continue Cortef, may need IV due to stress 11)CKD stage 3 - stable FATIMAH CACERES MD Dec 11, 2018 10:39
[2018-12-11 11:55] VITALS: BP 139/71
[2018-12-11] MEDS: ENOXAPARIN 40 MG/0.4 ML SYRINGE. SQ SCH (12:00)
--- NOTE | 2018-12-11 13:07 | PDOC ---
PULMONARY PROGRESS NOTES Subjective no soa, fully awake no fever Vitals Vital Signs Date Time Temp Pulse Resp B/P (MAP) Pulse Ox O2 Delivery O2 Flow Rate FiO2 12/11/18 11:55 97.8 60 16 139/71 (93) 98 Room Air 97.8 12/10/18 15:00 3.0 General: Alert, No acute distress Lungs: Clear Cardiovascular: S1 Abdomen: Soft, Non-tender Extremities: No Edema Skin: Warm Labs Laboratory Tests Test 12/10/18 04:05 12/10/18 04:35 White Blood Count 8.3 x10^3/uL (4.0-11.0) Red Blood Count 3.64 x10^6/uL (4.30-5.70) Hemoglobin 12.3 g/dL (13.0-17.5) Hematocrit 36.2 % (39.0-53.0) Mean Corpuscular Volume 100 fL (79-100) Mean Corpuscular Hemoglobin 34 pg (25-35) Mean Corpuscular Hemoglobin Concent 34 g/dL (31-37) Red Cell Distribution Width 14.5 % (11.5-14.5) Platelet Count 215 x10^3/uL (140-400) Neutrophils (%) (Auto) 69 % (31-73) Lymphocytes (%) (Auto) 19 % (24-48) Monocytes (%) (Auto) 10 % (0-9) Eosinophils (%) (Auto) 3 % (0-3) Basophils (%) (Auto) 0 % (0-3) Neutrophils # (Auto) 5.7 x10^3uL (1.8-7.7) Lymphocytes # (Auto) 1.5 x10^3/uL (1.0-4.8) Monocytes # (Auto) 0.8 x10^3/uL (0.0-1.1) Eosinophils # (Auto) 0.2 x10^3/uL (0.0-0.7) Basophils # (Auto) 0.0 x10^3/uL (0.0-0.2) Sodium Level 140 mmol/L (136-145) Potassium Level 3.7 mmol/L (3.5-5.1) Chloride Level 105 mmol/L (98-107) Carbon Dioxide Level 25 mmol/L (21-32) Anion Gap 10 (6-14) Blood Urea Nitrogen 17 mg/dL (8-26) Creatinine 1.2 mg/dL (0.7-1.3) Estimated GFR (Cockcroft-Gault) 58.1 BUN/Creatinine Ratio 14 (6-20) Glucose Level 102 mg/dL (70-99) Calcium Level 8.8 mg/dL (8.5-10.1) Total Bilirubin 0.4 mg/dL (0.2-1.0) Aspartate Amino Transf (AST/SGOT) 15 U/L (15-37) Alanine Aminotransferase (ALT/SGPT) 8 U/L (16-63) Alkaline Phosphatase 37 U/L (46-116) Total Protein 6.2 g/dL (6.4-8.2) Albumin 2.5 g/dL (3.4-5.0) Albumin/Globulin Ratio 0.7 (1.0-1.7) Medications Active Scripts Medications Dose Route/Sig Max Daily Dose Days Date Category Rimantadine Hcl 100 Mg Tablet 100 Mg PO 12/07/18 Reported Amitriptyline Hcl 10 Mg Tablet 10 Mg PO DAILY 12/07/18 Reported Valacyclovir (Valacyclovir Hcl) 1,000 Mg Tablet 1 Tab PO TID 12/07/18 Reported Tylenol With Codeine #3 Tablet (Acetaminophen/Codeine Phosphate) 1 Each Tablet 1 Tab PO PRN Q6HRS PRN 12/07/18 Reported Modafinil 100 Mg Tablet 100 Mg PO 12/07/18 Reported Ranitidine Hcl 150 Mg Capsule 1 Cap PO BID 12/07/18 Reported Synthroid (Levothyroxine Sodium) 88 Mcg Tablet 88 Mcg PO DAILYAC 12/07/18 Reported Valsartan-Hctz 80-12.5 Mg Tab (Valsartan/Hydrochlorothiazide) 1 Each Tablet 1 Each PO DAILY 12/07/18 Reported Rytary ER 36.25 mg-145 mg Cap (Carbidopa/Levodopa) 1 Each Capsule.er 1 Each PO 12/07/18 Reported Cortef (Hydrocortisone) 10 Mg Tablet 10 Mg PO 12/07/18 Reported Impression . 1. Dyspnea with acute hypoxic respiratory failure secondary to sepsis. 2. Sepsis. The source is not so obvious. There is no definite consolidation seen on the chest CT. Likely pancreatitis (Lipase, amlyase elevated). ct sinuses, abd/pelvis reviewed 3. Immunocompromised status. Now comes in with sepsis and high grade fever. 4. Long history of alcoholism. Need to rule out alcoholic pancreatitis. 5. Mildly elevated bilirubin. 6. TONYA Plan . 1. Discussed with the patient's in detail. 2. antibiotics per ID 3. Follow all cultures. so far neg 4. Nasal swab for influenza neg 5. CT head and sinuses.reviewed 6. CT abdomen and pelvis reviewed 7. Elevated amylase and lipase. Now normalized. Follow GI rec 8. No evidence of pulmonary embolism and no focus of infection in the lungs by CT chest. 9. home CPAP qhs d/w skill Wednesday IFRAH MCFARLANE MD Dec 11, 2018 13:07
[2018-12-11 15:00] VITALS: BP 124/50
[2018-12-11 19:00] VITALS: BP 118/53
[2018-12-11] MEDS: TAMSULOSIN 0.4 MG CAP.ER.24H. PO SCH (20:45)
[2018-12-11] MEDS: ALPRAZolam 0.5 MG TABLET PO PRN (22:46)
[2018-12-11 23:00] VITALS: BP 129/55
[2018-12-12 03:00] VITALS: BP 129/70
[2018-12-12] MEDS: PIPERACILLIN/TAZOBACTAM 3.375 GM in IV NORMAL SALINE 50ML 50 ML IV SCH (06:10)
[2018-12-12 06:43] LABS: HEMATOCRIT 36.1 % (39.0-53.0); HEMOGLOBIN 12.3 g/dL (13.0-17.5); RED BLOOD COUNT 3.59 x10^6/uL (4.30-5.70); RED CELL DISTRIBUTION WIDTH 14.7 % (11.5-14.5)
[2018-12-12 06:54] LABS: CALCIUM 8.6 mg/dL (8.5-10.1); CREATININE 1.2 mg/dL (0.7-1.3); GFR 58.1; POTASSIUM 3.9 mmol/L (3.5-5.1)
[2018-12-12 07:00] VITALS: BP 130/60
[2018-12-12] MEDS: IPRATRPIUM/ALBUTEROL 0.5/2.5MG 3 ML NEBU. NEB SCH (07:22)
[2018-12-12] MEDS: RYTARY PO SCH (08:19)
[2018-12-12] MEDS: FAMOTIDINE 20 MG TABLET. PO SCH (08:20)
[2018-12-12] MEDS: LEVOTHYROXINE 88 MCG TABLET PO SCH (08:20)
[2018-12-12] MEDS: HYDROCORTISONE 10 MG TABLET PO SCH (08:20)
[2018-12-12] MEDS: valACYclovir 500 MG TABLET. PO SCH (08:20)
[2018-12-12] MEDS: POLYETHYLENE GLYCOL 3350 17 GM PACKET. PO SCH (08:22)
--- NOTE | 2018-12-12 09:28 | PDOC ---
PULMONARY PROGRESS NOTES Subjective no soa, fully awake no fever Vitals Vital Signs Date Time Temp Pulse Resp B/P (MAP) Pulse Ox O2 Delivery O2 Flow Rate FiO2 12/12/18 07:23 96 Room Air 12/12/18 07:00 98.2 54 21 130/60 (83) 98.2 General: Alert, No acute distress Lungs: Clear Cardiovascular: S1 Abdomen: Soft, Non-tender Extremities: No Edema Skin: Warm Labs Laboratory Tests Test 12/12/18 06:05 White Blood Count 8.0 x10^3/uL (4.0-11.0) Red Blood Count 3.59 x10^6/uL (4.30-5.70) Hemoglobin 12.3 g/dL (13.0-17.5) Hematocrit 36.1 % (39.0-53.0) Mean Corpuscular Volume 101 fL (79-100) Mean Corpuscular Hemoglobin 34 pg (25-35) Mean Corpuscular Hemoglobin Concent 34 g/dL (31-37) Red Cell Distribution Width 14.7 % (11.5-14.5) Platelet Count 255 x10^3/uL (140-400) Sodium Level 142 mmol/L (136-145) Potassium Level 3.9 mmol/L (3.5-5.1) Chloride Level 108 mmol/L (98-107) Carbon Dioxide Level 26 mmol/L (21-32) Anion Gap 8 (6-14) Blood Urea Nitrogen 14 mg/dL (8-26) Creatinine 1.2 mg/dL (0.7-1.3) Estimated GFR (Cockcroft-Gault) 58.1 Glucose Level 89 mg/dL (70-99) Calcium Level 8.6 mg/dL (8.5-10.1) Laboratory Tests Test 12/12/18 06:05 White Blood Count 8.0 x10^3/uL (4.0-11.0) Red Blood Count 3.59 x10^6/uL (4.30-5.70) Hemoglobin 12.3 g/dL (13.0-17.5) Hematocrit 36.1 % (39.0-53.0) Mean Corpuscular Volume 101 fL (79-100) Mean Corpuscular Hemoglobin 34 pg (25-35) Mean Corpuscular Hemoglobin Concent 34 g/dL (31-37) Red Cell Distribution Width 14.7 % (11.5-14.5) Platelet Count 255 x10^3/uL (140-400) Sodium Level 142 mmol/L (136-145) Potassium Level 3.9 mmol/L (3.5-5.1) Chloride Level 108 mmol/L (98-107) Carbon Dioxide Level 26 mmol/L (21-32) Anion Gap 8 (6-14) Blood Urea Nitrogen 14 mg/dL (8-26) Creatinine 1.2 mg/dL (0.7-1.3) Estimated GFR (Cockcroft-Gault) 58.1 Glucose Level 89 mg/dL (70-99) Calcium Level 8.6 mg/dL (8.5-10.1) Medications Active Scripts Medications Dose Route/Sig Max Daily Dose Days Date Category Rimantadine Hcl 100 Mg Tablet 100 Mg PO 12/07/18 Reported Amitriptyline Hcl 10 Mg Tablet 10 Mg PO DAILY 12/07/18 Reported Valacyclovir (Valacyclovir Hcl) 1,000 Mg Tablet 1 Tab PO TID 12/07/18 Reported Tylenol With Codeine #3 Tablet (Acetaminophen/Codeine Phosphate) 1 Each Tablet 1 Tab PO PRN Q6HRS PRN 12/07/18 Reported Modafinil 100 Mg Tablet 100 Mg PO 12/07/18 Reported Ranitidine Hcl 150 Mg Capsule 1 Cap PO BID 12/07/18 Reported Synthroid (Levothyroxine Sodium) 88 Mcg Tablet 88 Mcg PO DAILYAC 12/07/18 Reported Valsartan-Hctz 80-12.5 Mg Tab (Valsartan/Hydrochlorothiazide) 1 Each Tablet 1 Each PO DAILY 12/07/18 Reported Rytary ER 36.25 mg-145 mg Cap (Carbidopa/Levodopa) 1 Each Capsule.er 1 Each PO 12/07/18 Reported Cortef (Hydrocortisone) 10 Mg Tablet 10 Mg PO 12/07/18 Reported Impression . 1. Dyspnea with acute hypoxic respiratory failure secondary to sepsis. 2. Sepsis. The source is not so obvious. There is no definite consolidation seen on the chest CT. Likely pancreatitis (Lipase, amlyase elevated). ct sinuses, abd/pelvis reviewed 3. Immunocompromised status. Now comes in with sepsis and high grade fever. 4. Long history of alcoholism. Need to rule out alcoholic pancreatitis. 5. Mildly elevated bilirubin. 6. TONYA Plan . OK TO TRANSFER FOLLOW UP NEEDED YUE CHAND MD Dec 12, 2018 09:28
[2018-12-12] MEDS ORDERED: TAMS0.4C97 PO (10:48)
[2018-12-12] MEDS ORDERED: ALPR0.5T6 PO (10:48)
[2018-12-12 11:00] VITALS: BP 151/53
--- NOTE | 2018-12-12 11:13 | PDOC ---
Infectious Disease Note Subjective Subjective Feeling alright, better except walking not so good Denies F/C/N/V/DSOA Loose stool but had Miralax ROS ROS o/w neg Vital Sign Vital Signs Vital Signs Date Time Temp Pulse Resp B/P (MAP) Pulse Ox O2 Delivery O2 Flow Rate FiO2 12/12/18 11:00 98.1 60 19 151/53 (85) 98 Room Air 98.1 Physical Exam PHYSICAL EXAM GENERAL: Sitting in the chair, alert, NAD HEENT: Oral mucosa moist. NECK: Supple. LUNGS: Clear anteriorly. No rhonchi. HEART: S1, S2 ABDOMEN: Soft and nontender EXTREMITIES: No edema, no cyanosis NEUROLOGIC: Alert, responding appropriately DERMATOLOGIC: Warm, dry. No generalized rash. Labs Lab Laboratory Tests Test 12/12/18 06:05 White Blood Count 8.0 x10^3/uL (4.0-11.0) Red Blood Count 3.59 x10^6/uL (4.30-5.70) Hemoglobin 12.3 g/dL (13.0-17.5) Hematocrit 36.1 % (39.0-53.0) Mean Corpuscular Volume 101 fL (79-100) Mean Corpuscular Hemoglobin 34 pg (25-35) Mean Corpuscular Hemoglobin Concent 34 g/dL (31-37) Red Cell Distribution Width 14.7 % (11.5-14.5) Platelet Count 255 x10^3/uL (140-400) Sodium Level 142 mmol/L (136-145) Potassium Level 3.9 mmol/L (3.5-5.1) Chloride Level 108 mmol/L (98-107) Carbon Dioxide Level 26 mmol/L (21-32) Anion Gap 8 (6-14) Blood Urea Nitrogen 14 mg/dL (8-26) Creatinine 1.2 mg/dL (0.7-1.3) Estimated GFR (Cockcroft-Gault) 58.1 Glucose Level 89 mg/dL (70-99) Calcium Level 8.6 mg/dL (8.5-10.1) Micro Microbiology 12/07/18 Blood Culture - Final, Complete NO GROWTH AFTER 5 DAYS Objective Assessment Fever etiology unclear resolved. cultures neg Leucocytosis improved Cough, SOB,Chest pain. CTA negative. better Pancreatitis on CT without any associated symptoms H/O sinus surgeries Generalized weakness Immunosuppression on steroids Parkinson's disease Hematuria likely catheter related as patient did not have any hematuria or dysuria or difficulty passing urine prior to admission CKD Plan Plan of Care Discont Zosyn begin Augmentin for 5 days Valtrex per primary cont supportive care Weakness bryan/LLE per PMR worked with PT today D/w family and son DEYVI Varghese MD Dec 12, 2018 11:13
[2018-12-12] MEDS ORDERED: AMOX1TAB11 PO (11:41)
[2018-12-12] MEDS ORDERED: TRAM50TA PO (11:42)
[2018-12-12] MEDS: ENOXAPARIN 40 MG/0.4 ML SYRINGE. SQ SCH ×2 (11:54→11:56)
--- NOTE | 2018-12-12 11:58 | PDOC ---
PROGRESS NOTES Subjective Subjective He feels better. Objective Objective Vital Signs Date Time Temp Pulse Resp B/P (MAP) Pulse Ox O2 Delivery O2 Flow Rate FiO2 12/12/18 11:00 98.1 60 19 151/53 (85) 98 Room Air 98.1 12/10/18 15:00 3.0 Intake and Output 12/12/18 06:59 Intake Total 360 ml Output Total 1050 ml Balance -690 ml Intake Oral 360 ml Output Urine Total 1050 ml # Voids 3 Physical Exam Physical Exam He is sitting in bedside recliner and he continues with balance problems but participating with therapy.Radicular pain does not seems to be a problem as per him today Assessment Assessment Problems Medical Problems: (1) Dyspnea Status: Acute (2) Fever Status: Acute (3) Parkinsons disease Status: Acute (4) Weakness Status: Acute Plan Plan of Care Agree with palns for transfer to SNF for continued care Comment Review of Relevant I have reviewed the following items amy (where applicable) has been applied. Labs Laboratory Tests Test 12/12/18 06:05 White Blood Count 8.0 x10^3/uL (4.0-11.0) Red Blood Count 3.59 x10^6/uL (4.30-5.70) Hemoglobin 12.3 g/dL (13.0-17.5) Hematocrit 36.1 % (39.0-53.0) Mean Corpuscular Volume 101 fL (79-100) Mean Corpuscular Hemoglobin 34 pg (25-35) Mean Corpuscular Hemoglobin Concent 34 g/dL (31-37) Red Cell Distribution Width 14.7 % (11.5-14.5) Platelet Count 255 x10^3/uL (140-400) Sodium Level 142 mmol/L (136-145) Potassium Level 3.9 mmol/L (3.5-5.1) Chloride Level 108 mmol/L (98-107) Carbon Dioxide Level 26 mmol/L (21-32) Anion Gap 8 (6-14) Blood Urea Nitrogen 14 mg/dL (8-26) Creatinine 1.2 mg/dL (0.7-1.3) Estimated GFR (Cockcroft-Gault) 58.1 Glucose Level 89 mg/dL (70-99) Calcium Level 8.6 mg/dL (8.5-10.1) Laboratory Tests Test 12/12/18 06:05 White Blood Count 8.0 x10^3/uL (4.0-11.0) Red Blood Count 3.59 x10^6/uL (4.30-5.70) Hemoglobin 12.3 g/dL (13.0-17.5) Hematocrit 36.1 % (39.0-53.0) Mean Corpuscular Volume 101 fL (79-100) Mean Corpuscular Hemoglobin 34 pg (25-35) Mean Corpuscular Hemoglobin Concent 34 g/dL (31-37) Red Cell Distribution Width 14.7 % (11.5-14.5) Platelet Count 255 x10^3/uL (140-400) Sodium Level 142 mmol/L (136-145) Potassium Level 3.9 mmol/L (3.5-5.1) Chloride Level 108 mmol/L (98-107) Carbon Dioxide Level 26 mmol/L (21-32) Anion Gap 8 (6-14) Blood Urea Nitrogen 14 mg/dL (8-26) Creatinine 1.2 mg/dL (0.7-1.3) Estimated GFR (Cockcroft-Gault) 58.1 Glucose Level 89 mg/dL (70-99) Calcium Level 8.6 mg/dL (8.5-10.1) Microbiology 12/07/18 Blood Culture - Final, Complete NO GROWTH AFTER 5 DAYS Medications Current Medications Sodium Chloride 1,000 ml @ 125 mls/hr Q8H IV Last administered on 12/07/18at 08:20; Start 12/07/18 at 08:20; Stop 12/07/18 at 16:19; Status DC Ceftriaxone Sodium (Rocephin) 1 gm 1X ONCE IVP Last administered on 12/07/18at 10:11; Start 12/07/18 at 10:00; Stop 12/07/18 at 10:01; Status DC Iohexol (Omnipaque 350 Mg/ml) 90 ml 1X ONCE IV Last administered on 12/07/18at 10:38; Start 12/07/18 at 10:00; Stop 12/07/18 at 10:01; Status DC Info (CONTRAST GIVEN -- Rx MONITORING) 1 each PRN DAILY PRN MC SEE COMMENTS; Start 12/07/18 at 10:00; Stop 12/09/18 at 09:59; Status DC Acetaminophen (Tylenol) 1,000 mg 1X ONCE PO Last administered on 12/07/18at 10:11; Start 12/07/18 at 10:00; Stop 12/07/18 at 10:01; Status DC Piperacillin Sod/ Tazobactam Sod 3.375 gm/Sodium Chloride 50 ml @ 100 mls/hr Q6HRS IV Last administered on 12/12/18at 06:10; Start 12/07/18 at 12:00; Stop 12/12/18 at 11:13; Status DC Doxycycline Hyclate (Vibra-Tab) 100 mg BID PO Last administered on 12/10/18at 09:21; Start 12/07/18 at 12:00; Stop 12/10/18 at 17:19; Status DC Enoxaparin Sodium (Lovenox 40mg Syringe) 40 mg Q24H SQ Last administered on 12/10/18at 12:16; Start 12/07/18 at 12:00 Vancomycin HCl 1.25 gm/Sodium Chloride 250 ml @ 166.667 mls/hr 1X ONCE IV ; Start 12/07/18 at 12:30; Stop 12/07/18 at 13:59; Status Cancel Daptomycin 550 mg/ Sodium Chloride 50 ml @ 100 mls/hr Q24H IV Last administered on 12/08/18at 13:18; Start 12/07/18 at 13:00; Stop 12/09/18 at 09:56; Status DC Amino Acids/ Glycerin/ Electrolytes 1,000 ml @ 80 mls/hr [id number] IV Last administered on 12/08/18at 23:14; Start 12/07/18 at 14:45; Stop 12/09/18 at 09:09; Status DC Tamsulosin HCl (Flomax) 0.4 mg QHS PO Last administered on 12/11/18at 20:45; Start 12/07/18 at 21:00 Enoxaparin Sodium (Lovenox 40mg Syringe) 40 mg Q24H SQ ; Start 12/07/18 at 14:45; Status UNV Iohexol (Omnipaque 350 Mg/ml) 100 ml STK-MED ONCE .ROUTE ; Start 12/07/18 at 14: 54; Stop 12/07/18 at 14:55; Status DC Levothyroxine Sodium (Synthroid) 88 mcg DAILYAC PO Last administered on 12/12/18 08:20; Start 12/08/18 at 07:30 Famotidine (Pepcid) 20 mg BID PO Last administered on 12/12/18 08:20; Start 12/07/18 at 21:00 Valacyclovir HCl (Valtrex) 1,000 mg TID PO Last administered on 12/12/18 08:20; Start 12/07/18 at 15:00 Carbidopa/Levodopa (Sinemet Cr) 1 tab.sa BID PO Last administered on 12/07/18 20:55; Start 12/07/18 at 21:00; Stop 12/09/18 at 09:09; Status DC Hydrocortisone (Cortef) 10 mg DAILYWBKFT PO ; Start 12/08/18 at 08:00; Status Cancel Amantadine HCl (Symmetrel) 100 mg BID PO Last administered on 12/07/18 20:58; Start 12/07/18 at 21:00; Stop 12/09/18 at 09:09; Status DC Sodium Chloride 1,000 ml @ 1,000 mls/hr Q1H IV Last administered on 12/07/18 15:15; Start 12/07/18 at 15:15; Stop 12/07/18 at 16:14; Status DC Hydrocortisone (Cortef) 15 mg DAILY08 PO Last administered on 12/12/18 08:20; Start 12/08/18 at 08:00 Hydrocortisone (Cortef) 10 mg AFTRNOON PO Last administered on 12/11/18 15:33; Start 12/07/18 at 17:30 Alprazolam (Xanax) 0.5 mg 1X ONCE PO Last administered on 12/07/18 23:23; Start 12/07/18 at 22:30; Stop 12/07/18 at 22:31; Status DC Albuterol/ Ipratropium (Duoneb) 3 ml RTQID NEB Last administered on 12/12/18 07:22; Start 12/08/18 at 09:30 Polyethylene Glycol (miraLAX PACKET) 17 gm DAILY PO Last administered on 12/08/18 23:18; Start 12/08/18 at 20:00 Non-Formulary Medication 2 ea DAILY@1500 PO Last administered on 12/11/18 15:33; Start 12/09/18 at 15:00 Non-Formulary Medication 2 ea DAILY08 PO Last administered on 12/12/18at 08:19; Start 12/09/18 at 08:00 Non-Formulary Medication 1 ea HS PO Last administered on 12/11/18at 21:18; Start 12/08/18 at 22:30 Alprazolam (Xanax) 0.5 mg PRN QHS PRN PO ANXIETY / AGITATION Last administered on 12/11/18at 22:46; Start 12/08/18 at 22:30 Amantadine HCl (Symmetrel) 100 mg PRN BID PRN PO tremor; Start 12/09/18 at 09:15 Tramadol HCl (Ultram) 50 mg PRN Q6HRS PRN PO PAIN; Start 12/09/18 at 09:15 Non-Formulary Medication 1 ea ONCE ONCE PO Last administered on 12/10/18at 21:50; Start 12/10/18 at 21:30; Stop 12/10/18 at 21:32; Status DC Amoxicillin/ Clavulanate Potassium (Augmentin 875/ 125mg) 1 tab BID PO ; Start 12/12/18 at 12:00 Active Scripts Active Flomax (Tamsulosin Hcl) 0.4 Mg Cap.er.24h 0.4 Mg PO QHS 30 Days Alprazolam 0.5 Mg Tablet 0.5 Mg PO PRN QHS PRN 30 Days Reported Amitriptyline Hcl 10 Mg Tablet 10 Mg PO DAILY Modafinil 100 Mg Tablet 100 Mg PO Ranitidine Hcl 150 Mg Capsule 1 Cap PO BID Synthroid (Levothyroxine Sodium) 88 Mcg Tablet 88 Mcg PO DAILYAC Rytary ER 36.25 mg-145 mg Cap (Carbidopa/Levodopa) 1 Each Capsule.er 1 Each PO Vitals/I & O Vital Sign - Last 24 Hours 12/11/18 12/11/18 12/11/18 12/11/18 15:00 15:11 19:00 19:37 Temp 97.8 97.9 97.8 97.9 Pulse 56 52 Resp 16 18 B/P (MAP) 124/50 (74) 118/53 (74) Pulse Ox 98 97 97 O2 Delivery Room Air Room Air Room Air Room Air 12/11/18 12/11/18 12/12/18 12/12/18 19:55 23:00 03:00 07:00 Temp 97.9 98.0 98.2 97.9 98.0 98.2 Pulse 45 50 54 Resp 18 18 21 B/P (MAP) 129/55 (79) 129/70 (89) 130/60 (83) Pulse Ox 98 97 96 O2 Delivery Room Air Room Air Room Air Room Air 12/12/18 12/12/18 12/12/18 07:23 08:00 11:00 Temp 98.1 98.1 Pulse 60 Resp 19 B/P (MAP) 151/53 (85) Pulse Ox 96 98 O2 Delivery Room Air Room Air Room Air Intake and Output 12/11/18 12/11/18 12/12/18 14:59 22:59 06:59 Intake Total 360 ml Output Total 1050 ml Balance 360 ml -1050 ml YVETTE SCALES MD Dec 12, 2018 11:58
[2018-12-12] MEDS ORDERED: AMOXICILLIN/K CLAV 875/125MG TABLET. PO SCH (12:00)
--- NOTE | 2018-12-12 12:47 | PDOC ---
Provider Note Provider Note Asked to evaluate Dr. Piña for bradycardia. No obvious LH/dizziness/syncope. Cardiac exam unchanged. Patient not on tele, suspect isolated HR of 45 due to PVCs When he goes back home, will plan for 1 week monitor to determine if any significant arrhythmia burden. Thanks. YUMI SERRANO MD Dec 12, 2018 12:47
[2018-12-12] MEDS ORDERED: HYDR10TA PO (12:52)
[2018-12-12] MEDS ORDERED: MELO15TA6 PO (13:02)
[2018-12-12] MEDS ORDERED: HYDR10TA66 PO ×2 (13:06)
[2018-12-12] MEDS ORDERED: CARB1CAP3 PO (13:09)
--- NOTE | 2018-12-12 13:11 | SNU/HH DC ---
DISCHARGE ORDERS DISCHARGE INFORMATION: FINAL DIAGNOSIS Problems Medical Problems: (1) Dyspnea Status: Acute (2) Fever Status: Acute (3) Parkinsons disease Status: Acute (4) Weakness Status: Acute CONDITION ON DISCHARGE: Stable CODE STATUS: Code Status: Full FPC: SNF STAY <30 DAYS: Yes POST DISCHARGE ORDERS: ACTIVITY ORDERS: Activity as tolerated WEIGHT BEARING STATUS: As tolerated DIET AFTER DISCHARGE: Regular WOUND/INCISION CARE: No wound care needed CHECKS AFTER DISCHARGE: CHECKS AFTER DISCHARGE: Check blood press - daily, Check your Temp as needed FOLLOW-UP: ADDITIONAL FOLLOW-UP: Primary care physician as needed. TREATMENT/EQUIPMENT ORDERS: RESPIRATORY EQUIPMENT NEEDED: CPAP Physical Therapy For: Evalulation/Treatment Occupational Therapy For: Evaluation/Treatment Speech Language Pathology For: Evaluation/Treatment DISCHARGE MEDICATIONS: Home Meds Active Scripts Carbidopa/Levodopa (Rytary ER 36.25 mg-145 mg Cap) 1 Each Capsule.er, 1 EACH PO TID for parkinson's for 30 Days, #90 CAP.SR Prov:CECE GARCES MD 12/12/18 Hydrocortisone (HYDROCORTISONE) 10 Mg Tablet, 10 MG PO AFTRNOON for adrenal insuff for 30 Days, #30 TAB Prov:CECE GARCES MD 12/12/18 Hydrocortisone (HYDROCORTISONE) 10 Mg Tablet, 15 MG PO DAILY08 for adrenal insuff for 30 Days, #45 TAB Prov:CECE GARCES MD 12/12/18 Meloxicam (MOBIC) 15 Mg Tablet, 1 TAB PO DAILY PRN for PAIN, #30 TAB 1 Refill Prov:CECE GARCES MD 12/12/18 Tramadol Hcl (TRAMADOL HCL) 50 Mg Tablet, 50 MG PO PRN Q6HRS PRN for PAIN for 30 Days, #60 TAB Prov:CECE GARCES MD 12/12/18 Amoxicillin/Potassium Clav (AMOX TR-K CLV 875-125 MG TAB) 1 Each Tablet, 1 TAB PO BID for sepsis for 10 Days, #20 TAB Prov:CECE GRACES MD 12/12/18 Alprazolam (ALPRAZOLAM) 0.5 Mg Tablet, 0.5 MG PO PRN QHS PRN for ANXIETY / ROSALINDA TATION for 30 Days, #60 TAB Prov:CECE GARCES MD 12/12/18 Tamsulosin Hcl (FLOMAX) 0.4 Mg Cap.er.24h, 0.4 MG PO QHS for bph for 30 Days, #30 CAP.SR Prov:CECE GARCES MD 12/12/18 Reported Medications Modafinil (MODAFINIL) 100 Mg Tablet, 100 MG PO, TAB 12/07/18 Ranitidine Hcl (RANITIDINE HCL) 150 Mg Capsule, 1 CAP PO BID, #60 CAP 5 Refills 12/07/18 Levothyroxine Sodium (SYNTHROID) 88 Mcg Tablet, 88 MCG PO DAILYAC for THYROID SUPPLEMENT, #30 TAB 0 Refills 12/07/18 Discontinued Reported Medications Hydrocortisone (CORTEF) 10 Mg Tablet, 10 MG PO, TAB 12/12/18 Amitriptyline Hcl (AMITRIPTYLINE HCL) 10 Mg Tablet, 10 MG PO DAILY, TAB 12/07/18 Valacyclovir Hcl (VALACYCLOVIR) 1,000 Mg Tablet, 1 TAB PO TID, #21 TAB 12/07/18 Acetaminophen With Codeine (TYLENOL WITH CODEINE #3 TABLET) 1 Each Tablet, 1 TAB PO PRN Q6HRS PRN for PAIN, TAB 12/07/18 Valsartan/Hydrochlorothiazide (VALSARTAN-HCTZ 80-12.5 MG TAB) 1 Each Tablet, 1 EACH PO DAILY, TAB 12/07/18 Rimantadine Hcl (RIMANTADINE HCL) 100 Mg Tablet, 100 MG PO, TAB 12/07/18 CECE GARCES MD Dec 12, 2018 13:11
[2018-12-12 13:17] LABS: WEST NILE IGG Positive (Negative); WEST NILE IGM Negative (Negative)
--- NOTE | 2018-12-12 13:20 | PDOC ---
Subjective: Subjective: Loose stools after Miralax, looks "black" this morning. Going to [facility] today. Objective: Objective: Hgb stable 12.3, BUN 14. On famotidine. Vital Signs: Vital Signs Date Time Temp Pulse Resp B/P (MAP) Pulse Ox O2 Delivery O2 Flow Rate FiO2 12/12/18 11:00 98.1 60 19 151/53 (85) 98 Room Air 98.1 Labs: Laboratory Tests Test 12/12/18 06:05 White Blood Count 8.0 x10^3/uL Red Blood Count 3.59 x10^6/uL Hemoglobin 12.3 g/dL Hematocrit 36.1 % Mean Corpuscular Volume 101 fL Mean Corpuscular Hemoglobin 34 pg Mean Corpuscular Hemoglobin Concent 34 g/dL Red Cell Distribution Width 14.7 % Platelet Count 255 x10^3/uL Sodium Level 142 mmol/L Potassium Level 3.9 mmol/L Chloride Level 108 mmol/L Carbon Dioxide Level 26 mmol/L Anion Gap 8 Blood Urea Nitrogen 14 mg/dL Creatinine 1.2 mg/dL Estimated GFR (Cockcroft-Gault) 58.1 Glucose Level 89 mg/dL Calcium Level 8.6 mg/dL BLOOD CULTURE Final NO GROWTH AFTER 5 DAYS PE: GEN: NAD, dressed to leave, up to chair LUNGS: room air HEART: RRR ABD: S/ND/NT NEURO/PSYCH: A & O 3 A/P: Fever, unclear etiology - resolved, on atbx Abnormal CT - pancreatitis vs diverticulitis, no symptoms Loose stool -- DC plans as above. Monitor for recurrent diarrhea and black stools - check stool studies and monitor Hgb/BUN if indicated. AKI PETERS Dec 12, 2018 13:20 KATHLEEN RASMUSSEN MD Dec 12, 2018 13:30
--- NOTE | 2018-12-12 13:36 | NUR ---
SS following up with discharge planning. Discharge orders received for [facility] [place]. SS phoned and faxed discharge orders to [facility] [place], ; fax [phone]. Pt will discharge today and go to [facility] at 1400 via [facility] transport, [id number]. Pt, pt's family, and pt's RN notified.
--- NOTE | 2018-12-12 14:08 | NUR ---
Patient was discharged from the unit at 1407. Patient left the unit with transportation and family via wheelchair. Patient was discharged with his belongings and discharge paperwork. Patient had no questions or concerns regarding the information provided to him.
--- NOTE | 2018-12-14 14:47 | PDOC3 ---
Discharge Summary [facility] Date of Admission: December 07, 2018 Discharge Date: Dec 12, 2018 Admitting Diagnosis fever, weakness Final Diagnosis (1) Dyspnea Status: Acute (2) Sepsis Status: Acute (3) Parkinsons disease Status: Acute (4) Weakness Status: Acute CONSULTS cardiology, GI, ID, Pulm, PM&R Procedures none Brief Hospital Course Mr. Piña is a 83 old who presented with: 1)Sepsis - GI source, treated with IV antibiotics, Zosyn converted to augmentin at discharge 2)Leukocytosis and fever- resolved. ID following. Pt currently receiving Zosyn, Doxycycline DC'd yesterday 3)acute pancreatitis - labs now normal after bowel rest, no evidence of gallstones or hypertriglyceridemia, GI consulted, tolerating diet, but Albumin decreased 4)possible diverticulitis - treated with Zosyn 5)BPH with LUTS - Urology consulted and Prather suggested but not placed, has a large prostate on imaging with bladder wall thickening consistent with chronic obstructive uropathy, tamsulosin started 6)Parkinson's - his PO medications dose not available here, getting dose from home, PT/OT recommended SNU 7)Protein malnutrition - was on ProcalAmine for a portion of hospitalization, eating well now 8)Hypothyroidism - cont home dose 9)TONYA - CPAP from home 10)hx of pituitary adenoma - continue Cortef po, did not need additional IV dose 11)CKD stage 3 - stable 12) weakness/debility - agreeable to SNU Disposition SNU CONDITION AT DISCHARGE: Improved, Stable Diet as tolerated Scheduled Amoxicillin/Potassium Clav (Amox Tr-K Clv 875-125 Mg Tab), 1 TAB PO BID Carbidopa/Levodopa (Rytary ER 36.25 mg-145 mg Cap), 1 EACH PO TID Hydrocortisone (Hydrocortisone), 15 MG PO DAILY08 Hydrocortisone (Hydrocortisone), 10 MG PO AFTRNOON Levothyroxine Sodium (Synthroid), 88 MCG PO DAILYAC, (Reported) Ranitidine Hcl (Ranitidine Hcl), 1 CAP PO BID, (Reported) Tamsulosin Hcl (Flomax), 0.4 MG PO QHS Scheduled PRN Alprazolam (Alprazolam), 0.5 MG PO PRN QHS PRN for ANXIETY / AGITATION Meloxicam (Mobic), 1 TAB PO DAILY PRN for PAIN Tramadol Hcl (Tramadol Hcl), 50 MG PO PRN Q6HRS PRN for PAIN Miscellaneous Medications Modafinil (Modafinil), 100 MG PO, (Reported) Discontinued Medications Acetaminophen With Codeine (Tylenol With Codeine #3 Tablet), 1 TAB PO PRN Q6HRS PRN for PAIN, (Reported) Amitriptyline Hcl (Amitriptyline Hcl), 10 MG PO DAILY, (Reported) Hydrocortisone (Cortef), 10 MG PO, (Reported) Rimantadine Hcl (Rimantadine Hcl), 100 MG PO, (Reported) Valacyclovir Hcl (Valacyclovir), 1 TAB PO TID, (Reported) Valsartan/Hydrochlorothiazide (Valsartan-Hctz 80-12.5 Mg Tab), 1 EACH PO DAILY, (Reported) Follow Up 1-2 weeks after SNU discharge, will follow at SNU Arlene PINEDA MD Dec 14, 2018 14:47
== END 2018-12-12 14:07 | DRG 871 ==
LOC: ER 08:09 → 6 SOUTH 10:00 → 5 NORTH 12-09 20:04
PROVIDERS: ADMIT Family Medicine; ATTEND Family Medicine
PROC: 5A09357 Assistance with Respiratory Ventilation, Less than 24 Consecutive Hours, Continuous Positive Airway Pressure (ICD-10-PCS; principal; 2018-12-08)
PROC: 5A09357 Assistance with Respiratory Ventilation, Less than 24 Consecutive Hours, Continuous Positive Airway Pressure (ICD-10-PCS; 2018-12-10)
DX: A41.9 Sepsis, unspecified organism (principal); K85.90 Acute pancreatitis without necrosis or infection, unspecified; J96.01 Acute respiratory failure with hypoxia; K57.32 Diverticulitis of large intestine without perforation or abscess without bleeding; E46 Unspecified protein-calorie malnutrition; J98.11 Atelectasis; D35.2 Benign neoplasm of pituitary gland; D89.9 Disorder involving the immune mechanism, unspecified; E03.9 Hypothyroidism, unspecified; G20 Parkinson's disease; G47.33 Obstructive sleep apnea (adult) (pediatric); I12.9 Hypertensive chronic kidney disease with stage 1 through stage 4 chronic kidney disease, or unspecified chronic kidney disease; N18.3 Chronic kidney disease, stage 3 (moderate); G62.9 Polyneuropathy, unspecified; I49.3 Ventricular premature depolarization; G89.29 Other chronic pain; K76.89 Other specified diseases of liver; M19.90 Unspecified osteoarthritis, unspecified site; M47.816 Spondylosis without myelopathy or radiculopathy, lumbar region; M48.061 Spinal stenosis, lumbar region without neurogenic claudication; N18.9 Chronic kidney disease, unspecified; N30.91 Cystitis, unspecified with hematuria; N32.0 Bladder-neck obstruction; N40.1 Benign prostatic hyperplasia with lower urinary tract symptoms; R33.8 Other retention of urine; Z79.52 Long term (current) use of systemic steroids; Z79.899 Other long term (current) drug therapy; Z82.49 Family history of ischemic heart disease and other diseases of the circulatory system; Z90.49 Acquired absence of other specified parts of digestive tract; Z68.32 Body mass index [BMI] 32.0-32.9, adult
CPT/HCPCS: 36415; 70486; 71045; 71275; 74176; 76705; 80048; 80053; 80061; 80076; 81001; 82150; 82533; 82550; 83605; 83615; 83690; 83735; 83880; 84439; 84443; 84484; 85007; 85025; 85027; 85610; 86788; 86789; 87040; 87449; 87804; 93005; 93306; 94640; 94760; A4314; J0696; J0878; J1650; J2543; J7030; J7620; Q9967; 97116; 97535

== ENCOUNTER → 2020-03-19 | Outpatient (CLI) | payer MEDICARE ==
[~2020-03-19] MED LIST changes: +ACET-704 PO; +ALPR0.5T6 PO; +AMIT10TA PO; +AMOX1TAB11 PO; +CARB1CAP3 PO; +HYDR-3107 PO; +HYDR10TA PO; +LEVO88TA70 PO; +MELO15TA6 PO; +MODA100T2 PO; +RANI150C PO; +RIMA100T PO; +TAMS0.4C97 PO; +TRAM50TA PO; +VALA10008 PO; +VALS1TAB25 PO
--- NOTE | 2020-03-19 16:54 | KCIC ---
SCAPULA RIGHT, RIBS RIGHT AND PA CHEST 03/19/2020 12:00 AM INDICATION: Right rib and scapular pain post fall COMPARISON: CT chest 12/07/2018 TECHNIQUE: Portable frontal view of the chest is provided. 3 views of the right ribs and 2 views the right scapular provided. FINDINGS: The cardiomediastinal silhouette is borderline enlarged, stable. There is a battery pack projecting over the left chest with leads extending into the left neck. Lungs are clear. There are no significant pleural effusions. There is no pulmonary vascular congestion. No pneumothorax. No suspicious osseous abnormality. No acutely displaced right-sided rib fracture is identified. Scapula is intact. IMPRESSION: There is no acute cardiopulmonary process. No acutely displaced right-sided rib fracture. Scapula is intact. Electronically signed by: Shayy Soria MD (03/19/2020 4:52 PM) [id number]
== END | disposition home or self-care (01) ==
LOC: KCIC 11:07
PROVIDERS: ATTEND Family Medicine
DX: R07.81 Pleurodynia (principal); I51.7 Cardiomegaly
CPT/HCPCS: 71101; 73010

== ENCOUNTER 2020-03-22 12:13 | Emergency (ER) | payer MEDICARE ==
[~2020-03-22] VITALS: Ht 172.7 cm; Wt 94.1 kg
--- NOTE | 2020-03-22 14:17 | RAD ---
EXAM: Chest CT without intravenous contrast. HISTORY: Fall. Chest pain. TECHNIQUE: Computed tomographic images of the chest were obtained without contrast. Multiplanar reformatting was performed. *One or more of the following individualized dose reduction techniques were utilized for this examination: 1. Automated exposure control. 2. Adjustment of the mA and/or kV according to patient size. 3. Use of iterative reconstruction technique. COMPARISON: 12/07/2018. FINDINGS: There are acute displaced fractures involving the posterior and posterior lateral right sixth rib. There are also acute-appearing angled fractures involving the lateral right third and fourth ribs. There is a healed fracture involving the lateral right fifth rib and there are healed fractures involving the lateral left third, fourth, fifth, sixth and seventh ribs. No sternal fracture or thoracic vertebral fracture is seen. There is multilevel degenerative change throughout the thoracic spine with bridging and partially bridging osteophytes at multiple levels. There is a small right pleural effusion. There is no pneumothorax. There is bilateral posterior dependent and basilar atelectasis. There is a 3 mm groundglass nodule within the posterior right lower lobe. There is cardiomegaly. There is coronary artery atherosclerosis and calcification of the aortic valve. There is a tiny hiatal hernia. There are multiple hepatic cysts, the largest of which measures 5.0 cm. There is a splenule adjacent to an otherwise unremarkable spleen. The adrenal glands and visualized portions of the kidneys are unremarkable. There is colonic diverticulosis. IMPRESSION: 1. Acute mildly displaced segmental posterior and posterior lateral right sixth rib fractures. There are also mildly angulated fractures involving the lateral right third and fourth ribs which are acute appearance. There are multiple chronic healed bilateral rib fractures described above. 2. Small right pleural effusion with bilateral posterior dependent and basilar atelectasis. 3. 3 mm groundglass nodule within the right lower lobe, stable in appearance. Follow-up can be performed in one year if there are risk factors for pulmonary neoplasm. 4. Multiple hepatic cysts. 5. Tiny hiatal hernia. 6. Colonic diverticulosis. 7. Calcification of the aortic valve and coronary arteries. Electronically signed by: Darcie Eason MD (03/22/2020 2:14 PM) [id number]
[2020-03-22 14:30] VITALS: BP 138/65
[2020-03-22] MEDS ORDERED: HYDR-3164 PO (14:49)
--- NOTE | 2020-03-22 14:49 | PHYS DOC ---
Past Medical History Past Medical History: Hypertension, Other Additional Past Medical Histor: PARKINSONS, DBS(DEEP BRAIN STIMULATOR), KAIBAB, PITUITARY TUMOR, SLEEP APNEA Past Surgical History: Appendectomy, Other Additional Past Surgical Histo: SINUS SX, DBS Smoking Status: Former Smoker Alcohol Use: Occasionally Drug Use: None General Adult EDM: Chief Complaint: LOWER BACK PAIN OR INJURY HPI: HPI: Patient is a 85 year old male who presented to ER today for evaluation of right-sided rib pain after he fell a week ago. Patient was walking, tripped on his walker and fell down on his right side. Denies any head or neck injury. Patient is not on blood thinner. Patient is a physician. Patient was seen by his family physician who prescribed him some hydrocodone and tramadol. Patient took his pain medication today but he still having pain, so he took double dose of the tramadol, that made him feel really weak and dizzy. Patient denies any trouble breathing, no headache, no neck pain, no back pain. Patient denies any cough or fever, no bowel or bladder incontinence. Review of Systems: Review of Systems: Constitutional: Denies fever or chills. [] Eyes: Denies change in visual acuity. [] HENT: Denies nasal congestion or sore throat. [] Respiratory: Denies cough or shortness of breath. [Positive for right side rib pain. Cardiovascular: Denies chest pain or edema. [] GI: Denies abdominal pain, nausea, vomiting, bloody stools or diarrhea. [] : Denies dysuria. [] Musculoskeletal: Denies back pain or joint pain. [] Integument: Denies rash. [] Neurologic: Denies headache, focal weakness or sensory changes. [] Endocrine: Denies polyuria or polydipsia. [] Lymphatic: Denies swollen glands. [] Psychiatric: Denies depression or anxiety. [] Heart Score: Risk Factors: Risk Factors: DM, Current or recent (<one month) smoker, HTN, HLP, family history of CAD, obesity. Risk Scores: Score 0 - 3: 2.5% MACE over next 6 weeks - Discharge Home Score 4 - 6: 20.3% MACE over next 6 weeks - Admit for Clinical Observation Score 7 - 10: 72.7% MACE over next 6 weeks - Early Invasive Strategies Allergies: Allergies: Allergies Coded Allergies Type Severity Reaction Last Updated Verified No Known Drug Allergies 8/15/17 No Physical Exam: PE: Constitutional: Well developed, well nourished, no acute distress, non-toxic appearance. [] HENT: Normocephalic, atraumatic, bilateral external ears normal, oropharynx mois t, no oral exudates, nose normal. [] Eyes: PERRLA, EOMI, conjunctiva normal, no discharge. [] Neck: Normal range of motion, no tenderness, supple, no stridor. [] Cardiovascular:Heart rate regular rhythm, no murmur [] Lungs & Thorax: Bilateral breath sounds clear to auscultation . There is skin contusion on the right mid back area, no crepitus, there is tender to palpation Abdomen: Bowel sounds normal, soft, no tenderness, no masses, no pulsatile masses. [] Skin: Warm, dry, no erythema, no rash. [] Back: No tenderness, no CVA tenderness. [] Extremities: No tenderness, no cyanosis, no clubbing, ROM intact, no edema. [] Neurologic: Alert and oriented X 3, normal motor function, normal sensory function, no focal deficits noted. [] Psychologic: Affect normal, judgement normal, mood normal. [] Current Patient Data: Vital Signs: Vital Signs Date Time Temp Pulse Resp B/P (MAP) Pulse Ox O2 Delivery O2 Flow Rate FiO2 03/22/20 14:00 54 120/61 (80) 94 Room Air 03/22/20 12:17 98.0 16 98.0 EKG: EKG: [] Radiology/Procedures: Radiology/Procedures: [facility] [address] [place], [place] [id number] IMAGING REPORT Signed PATIENT: MALOU GARCES ACCOUNT: [id number] : 1935 LOCATION: ER AGE: 85 SEX: M EXAM STATUS: PRE ER ORD. PHYSICIAN: ANDIE GONZALES DO REASON: FELL , RIGHT SIDE CHEST INJURIED PROCEDURE: CT CHEST WO CONTRAST EXAM: Chest CT without intravenous contrast. HISTORY: Fall. Chest pain. TECHNIQUE: Computed tomographic images of the chest were obtained without contrast. Multiplanar reformatting was performed. *One or more of the following individualized dose reduction techniques were utilized for this examination: 1. Automated exposure control. 2. Adjustment of the mA and/or kV according to patient size. 3. Use of iterative reconstruction technique. COMPARISON: 12/07/2018. FINDINGS: There are acute displaced fractures involving the posterior and posterior lateral right sixth rib. There are also acute-appearing angled fractures involving the lateral right third and fourth ribs. There is a healed fracture involving the lateral right fifth rib and there are healed fractures involving the lateral left third, fourth, fifth, sixth and seventh ribs. No sternal fracture or thoracic vertebral fracture is seen. There is multilevel degenerative change throughout the thoracic spine with bridging and partially bridging osteophytes at multiple levels. There is a small right pleural effusion. There is no pneumothorax. There is bilateral posterior dependent and basilar atelectasis. There is a 3 mm groundglass nodule within the posterior right lower lobe. There is cardiomegaly. There is coronary artery atherosclerosis and calcification of the aortic valve. There is a tiny hiatal hernia. There are multiple hepatic cysts, the largest of which measures 5.0 cm. There is a splenule adjacent to an otherwise unremarkable spleen. The adrenal glands and visualized portions of the kidneys are unremarkable. There is colonic diverticulosis. IMPRESSION: 1. Acute mildly displaced segmental posterior and posterior lateral right sixth rib fractures. There are also mildly angulated fractures involving the lateral right third and fourth ribs which are acute appearance. There are multiple chronic healed bilateral rib fractures described above. 2. Small right pleural effusion with bilateral posterior dependent and basilar atelectasis. 3. 3 mm groundglass nodule within the right lower lobe, stable in appearance. Follow-up can be performed in one year if there are risk factors for pulmonary neoplasm. 4. Multiple hepatic cysts. 5. Tiny hiatal hernia. 6. Colonic diverticulosis. 7. Calcification of the aortic valve and coronary arteries. Electronically signed by: Darcie Eason MD (03/22/2020 2:14 PM) [id number] DICTATED and SIGNED BY: DARCIE EASON MD DATE: 03/22/20 1414 Course & Med Decision Making: Course & Med Decision Making Pertinent Labs and Imaging studies reviewed. (See chart for details) Patient is a 85-year-old male who was evaluated in ER due to fall, having right- sided rib pain. CT scan of head chest show multiple rib fracture, no pneumothorax, no obvious contusion. Patient will be discharged home with pain medication. Dragon Disclaimer: Dragon Disclaimer: This electronic medical record was generated, in whole or in part, using a voice recognition dictation system. Departure Departure Impression: Primary Impression: Fracture of ribs, multiple Disposition: HOME, SELF-CARE Condition: STABLE Referrals: CECE GARCES MD (PCP) PLEASE FOLLOW UP WITH YOUR DOCTOR NEXT WEEK NEEDED Patient Instructions: Rib Fracture Scripts Hydrocodone/Apap 5-325 (NORCO 5-325 TABLET) 1 Each Tablet 1 TAB PO PRN Q6HRS PRN for PAIN, #20 TAB 0 Refills Prov: ANDIE GONZALES DO 03/22/20 Justicifation of Admission Dx: Justifications for Admission: Justification of Admission Dx: N/A ANDIE GONZALES DO Mar 22, 2020 14:49
== END 2020-03-22 14:55 | disposition home or self-care (01) ==
LOC: ER 12:13
DX: S22.41XA Multiple fractures of ribs, right side, initial encounter for closed fracture (principal); R42 Dizziness and giddiness; R53.1 Weakness; K44.9 Diaphragmatic hernia without obstruction or gangrene; K57.30 Diverticulosis of large intestine without perforation or abscess without bleeding; K76.89 Other specified diseases of liver; I35.8 Other nonrheumatic aortic valve disorders; J90 Pleural effusion, not elsewhere classified; I10 Essential (primary) hypertension; Z90.89 Acquired absence of other organs; G20 Parkinson's disease; Z87.891 Personal history of nicotine dependence; W18.39XA Other fall on same level, initial encounter; Y93.89 Activity, other specified; Y92.89 Other specified places as the place of occurrence of the external cause; Y99.8 Other external cause status
CPT/HCPCS: 71250; 99285

== ENCOUNTER → 2021-05-22 | Outpatient (CLI) | payer MEDICARE ==
[~2021-05-22] MED LIST changes: +HYDR-3164 PO
--- NOTE | 2021-05-22 16:13 | KCIC ---
Exam Date: 05/22/2021 3:49 PM XR LUMBAR SPINE 2-3V Indication: Reason: S/P LUMBAR FUSION, C/O LBP / Spl. Instructions: / History: . FINDINGS/ IMPRESSION: Posterior fusion is seen from L3 to L5 with posterior rods and transpedicular screws. No evidence fo r hardware failure or loosening. Alignment is maintained. Moderate multilevel degenerative changes are seen with disc space narrowing, osteophytes, and facet joint arthropathy. The vertebral body heights are maintained without evidence of compression fracture. Vascular calcifi cations are noted. Degenerative changes are seen in the SI joints. Electronically signed by: Gagan Smith MD (05/22/2021 4:11 PM) [id number]
== END ==
LOC: KCIC 15:44
PROVIDERS: ATTEND Family Medicine
DX: M47.26 Other spondylosis with radiculopathy, lumbar region (principal); M48.061 Spinal stenosis, lumbar region without neurogenic claudication; M48.8X6 Other specified spondylopathies, lumbar region; M25.78 Osteophyte, vertebrae; Z98.1 Arthrodesis status
CPT/HCPCS: 72100